=== PATIENT | female | born 1935 | race Caucasian/White ===

== ENCOUNTER 2020-09-06 07:56 | Outpatient (REF) | payer MEDICARE, SELFPAY ==
[2020-09-06 11:49] LABS: Alanine Aminotransferase 22 U/L (0-31); Anion Gap 13 (12-20); Blood Urea Nitrogen 26 mg/dL (9-16); Carbon Dioxide 29 mmol/L (22-29); Chloride 104 mmol/L (96-108); Estimated Glomerular Filt Rate 46; Potassium 4.2 mmol/L (3.3-5.1); Sodium 142 mmol/L (135-145)
== END 2020-09-06 07:57 | disposition home or self-care (01) ==
LOC: HO.HMGCLDS 07:56
PROVIDERS: Visit Provider Family Medicine
DX: I10 Essential (primary) hypertension (principal); E78.00 Pure hypercholesterolemia, unspecified; Z79.899 Other long term (current) drug therapy
CPT/HCPCS: 36415; 80051; 82550; 82565; 84460; 84520

== ENCOUNTER 2021-01-24 09:48 | Outpatient (REF) | payer MEDICARE, SELFPAY ==
[2021-01-24 12:25] LABS: Anion Gap 15 (12-20); Blood Urea Nitrogen 35 mg/dL (9-16); Calcium 9.8 mg/dL (8.4-10.2); Carbon Dioxide 24 mmol/L (22-29); Chloride 107 mmol/L (96-108); Estimated Glomerular Filt Rate 36; Potassium 4.2 mmol/L (3.3-5.1); Sodium 142 mmol/L (135-145)
== END 2021-01-24 09:49 | disposition home or self-care (01) ==
LOC: HO.HMGCLDS 09:48
PROVIDERS: PCP Family Medicine; Visit Provider Internal Medicine Hypertension Specialist
DX: I12.9 Hypertensive chronic kidney disease with stage 1 through stage 4 chronic kidney disease, or unspecified chronic kidney disease (principal); N18.9 Chronic kidney disease, unspecified; I70.1 Atherosclerosis of renal artery
CPT/HCPCS: 36415; 80051; 82310; 82565; 84520

== ENCOUNTER 2021-08-04 09:55 | Outpatient (REF) | payer MEDICARE, SELFPAY | END 2021-08-04 09:56 | disposition home or self-care (01) | LOC: HO.XRAY 09:55 | PROVIDERS: PCP Internal Medicine; Visit Provider Internal Medicine | DX: Z13.89 Encounter for screening for other disorder (principal) ==

== ENCOUNTER 2021-09-04 08:32 | Outpatient (REF) | payer MEDICARE, SELFPAY ==
--- NOTE | ~2021-09-04 | FL_ITS ---
EXAMINATION: FL BARIUM SWALLOW CLINICAL INFORMATION: New dysphagia. COMPARISON: 07/09/2019 TECHNIQUE: Barium swallow examination is performed using fluoroscopic evaluation in addition to multiple fluoroscopic spot views. The patient is imaged both upright and prone and using both thick and thin sulfate along with effervescent granules. Fluoroscopy time: 1.4 minutes DAP: 5.09 Gycm2 Images: 109 FINDINGS: There is normal oral bolus control and transfer. Normal posterior tilt of the epiglottis with elevation of the hyoid. No cricopharyngeal abnormality. 13 mm barium tablet was swallowed, with delay of passage at the level of the midesophagus. This was cleared with additional swallows of water. The esophagus was normal in course, caliber, and contour. There was normal distensibility with no fixed segment of narrowing. No focal mucosal abnormality was identified. Mild esophageal dysmotility was observed. Contrast passed freely across the gastroesophageal junction into the stomach. No significant hiatal hernia. Mild gastroesophageal reflux was observed. FL/FL barium swallow IMPRESSION: Mild esophageal dysmotility. Mild gastroesophageal reflux noted. Mild delay of passage of the barium tablet at the level of the midesophagus likely associated with dysmotility. This was cleared with additional drinks of water.
== END 2021-09-04 08:33 | disposition home or self-care (01) ==
LOC: HO.XRAY 08:32
PROVIDERS: Visit Provider Internal Medicine
DX: R13.10 Dysphagia, unspecified (principal)
CPT/HCPCS: 74220

== ENCOUNTER → 2021-10-09 11:00 | Outpatient (BNVA) | payer MEDICARE, SELFPAY | PROVIDERS: PCP Internal Medicine; Visit Provider Surgery Vascular Surgery | DX: I73.9 Peripheral vascular disease, unspecified (principal); I65.23 Occlusion and stenosis of bilateral carotid arteries | CPT/HCPCS: 99212 ==

== ENCOUNTER 2021-10-11 12:30 | Outpatient (REF) | payer MEDICARE, SELFPAY ==
--- NOTE | ~2021-10-11 | MM_ITS ---
EXAMINATION: MM SCREENING DIGITAL BREAST TOMOSYNTHESIS, BILATERAL CLINICAL INFORMATION: Screening. Asymptomatic. COMPARISON: Mammography: 08/20/2018, 11/02/2016, 08/10/2014, 07/23/2014 TECHNIQUE: Digital breast tomosynthesis is performed in both the craniocaudal and mediolateral oblique views along with computer-aided detection (CAD). Synthesized 2D images are generated from the tomosynthesis. Additional left CC view is provided. FINDINGS: There are scattered areas of fibroglandular density (ACR BI-RADS breast composition Category b). Parenchymal pattern is similar to prior studies. No developing density or significant significant mass or architectural abnormality. 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 There is a dermal lesion again seen overlying the lower inner left breast. The axilla are unremarkable. No significant changes. MM/MM tomosynthesis screening BI IMPRESSION: No mammographic evidence of malignancy. ASSESSMENT: BI-RADS 2: Benign RECOMMENDATION: Routine annual mammography screening. This patient's information was entered into a reminder system with a target due date for their next mammogram.
== END 2021-10-11 12:31 | disposition home or self-care (01) ==
LOC: HO.MAMMO 12:30
PROVIDERS: PCP Internal Medicine; Visit Provider Internal Medicine
DX: Z12.31 Encounter for screening mammogram for malignant neoplasm of breast (principal)
CPT/HCPCS: 77063; 77067

== ENCOUNTER 2021-12-12 13:28 | Outpatient (REF) | payer MEDICARE, SELFPAY ==
--- NOTE | ~2021-12-12 | US_ITS ---
EXAMINATION: NONINVASIVE ASSESSMENT OF THE ARTERIES OF BOTH LOWER EXTREMITIES WITH PVR EXAM AND BILATERAL LOWER EXTREMITY DUPLEX CLINICAL INFORMATION: Peripheral vascular disease. TECHNIQUE: Ankle pulse volume recordings, ankle pressure measurements and ankle brachial indices were obtained of the lower extremity arterial system bilaterally. Additionally, duplex Doppler techniques were used with wave form analysis and measurement of velocities in the common femoral, profunda femoral, superficial femoral, popliteal and tibial arteries. The study was performed only at rest. COMPARISON: None. FINDINGS: ANKLE-BRACHIAL INDEX: Right: 0.36 Left: 0.39. ANKLE PVR WAVEFORM: Right: Dampened Left: Dampened DIRECT DUPLEX DOPPLER FINDINGS: RIGHT LEG: Common femoral artery: 139 cm/s, monophasic Profunda femoris artery: 211 cm/s, monophasic Superficial femoral artery (proximal): 132 cm/s, monophasic Superficial femoral artery (mid): 27 cm/s, monophasic Superficial femoral artery (distal): 126 cm/s, multiphasic Popliteal artery: 38 cm/s, monophasic Posterior tibial artery: 87 cm/s, monophasic LEFT LEG: Common femoral artery: 225 cm/s, monophasic Profunda femoris artery: 339 cm/s, monophasic Superficial femoral artery (proximal): 23 cm/s, monophasic Superficial femoral artery (mid): 87 cm/s, monophasic Superficial femoral artery (distal): 8 cm/s, monophasic Popliteal artery: 14 cm/s, monophasic Posterior tibial artery: 51 cm/s, monophasic Arterial collaterals are present bilaterally. There is significant atherosclerotic disease seen bilaterally. US/US arterial duplex LE BI IMPRESSION: Right leg: DEEDEE 0.36 consistent with severe peripheral arterial disease. Common femoral artery waveforms are monophasic suggesting inflow disease. Monophasic waveforms are present throughout the remainder of the right lower extremity. Left leg: DEEDEE 0.36 consistent with severe peripheral arterial disease. Common femoral artery velocity is elevated and CONTINUITY READER waveform is monophasic suggesting inflow disease. There is minimal, sluggish flow within the superficial femoral artery and popliteal artery. Monophasic waveforms are seen throughout the left lower extremity. DEEDEE Reference: - >0.97-1.25 = normal - no significant arterial disease. - 0.75-0.96 = mild peripheral arterial disease. - 0.5-0.74 = moderate peripheral arterial disease. - <0.50 = severe peripheral arterial disease.
--- NOTE | ~2021-12-12 | US_ITS ---
EXAMINATION: US EXTRACRANIAL CAROTID DUPLEX, BILATERAL CLINICAL INFORMATION: Carotid artery stenosis. History of right carotid endarterectomy. COMPARISON: 06/04/2016 TECHNIQUE: Real-time ultrasound and Doppler techniques (integrating B-mode 2-D vascular images, Doppler spectral analysis and color-flow Doppler imaging) were utilized to interrogate the extracranial carotid arteries, the vertebral arteries and proximal subclavian arteries bilaterally. The degree of stenosis is determined by criteria similar to NASCET. FINDINGS: Right Side: 1. There is no appreciable atherosclerotic plaque seen in the bifurcation/proximal ICA region. 2. The common carotid artery PSV proximally is 97 cm/s and distally 60 cm/s. 3. The proximal internal carotid artery velocities are 64 cm/s systolic and 13 cm/s diastolic. 4. The proximal external carotid artery PSV is 237 cm/s. 5. The vertebral artery shows antegrade flow. 6. The subclavian artery waveforms are normal. Left Side: 1. There is moderate atherosclerotic plaque seen in the bifurcation/proximal ICA region. 2. The common carotid artery PSV proximally is 127 cm/s and distally 72 cm/s. 3. The proximal internal carotid artery velocities are 196 cm/s systolic and 27 cm/s diastolic. 4. The proximal external carotid artery PSV is 361 cm/s. 5. The vertebral artery shows antegrade flow. 6. The subclavian artery velocity suggests stenosis peak systolic velocity of 207 m/s.. US/US carotid duplex BI IMPRESSION: 1. RIGHT: Normal right internal carotid artery without atherosclerotic plaque or hemodynamically significant stenosis. 2. LEFT: Moderate, hemodynamically significant stenosis of the proximal left internal carotid artery corresponding to a 50-79% stenosis by velocity criteria. The degree of stenosis is stable from a comparison in 2017. 3. Elevated velocities within both external carotid arteries suggest hemodynamically significant stenoses bilaterally. 4. Mildly elevated left subclavian artery velocity suggests a hemodynamically significant stenosis.
== END 2021-12-12 13:29 | disposition home or self-care (01) ==
LOC: HO.US 13:28
PROVIDERS: Visit Provider Surgery Vascular Surgery
DX: I73.9 Peripheral vascular disease, unspecified (principal); I65.23 Occlusion and stenosis of bilateral carotid arteries
CPT/HCPCS: 93880; 93925

== ENCOUNTER → 2021-12-19 10:55 | Outpatient (BNVA) | payer MEDICARE, SELFPAY | PROVIDERS: PCP Internal Medicine; Visit Provider Surgery Vascular Surgery | DX: I73.9 Peripheral vascular disease, unspecified (principal); I65.23 Occlusion and stenosis of bilateral carotid arteries | CPT/HCPCS: 99212 ==

== ENCOUNTER 2021-12-25 08:25 | Outpatient (REF) | payer MEDICARE, SELFPAY ==
[2021-12-25 09:46] LABS: Blood Urea Nitrogen 30 mg/dL (9-16); Estimated Glomerular Filt Rate 37
== END 2021-12-25 08:26 | disposition home or self-care (01) ==
LOC: HO.LAB 08:25
PROVIDERS: PCP Internal Medicine; Visit Provider Surgery Vascular Surgery
DX: I73.9 Peripheral vascular disease, unspecified (principal)
CPT/HCPCS: 36415; 82565; 84520

== ENCOUNTER 2021-12-27 09:58 | Outpatient (REF) | payer MEDICARE, SELFPAY ==
--- NOTE | ~2021-12-27 | CT_ITS ---
STUDY PERFORMED: CTA ABDOMEN, PELVIS AND LOWER EXTREMITY RUNOFF WITH CONTRAST HISTORY: Pain in popliteal fossa and calf DESCRIPTION: Routine abdominal aorta and lower extremity runoff CTA protocol with contrast was performed. 100 mL of Omnipaque 350 was administered. 3D POSTPROCESSING: Multiple 3-D angiographic images were processed from the initial data set by the [facility] under concurrent physician supervision. This CT examination was performed using dose optimization techniques as appropriate, variously including the following: *Automated exposure control *Adjustment of mA and/or kV according to patient size (this includes techniques or standardized protocols for targeted exams where dose is matched to indication/reason for exam; i.e. extremities or head) *Use of iterative reconstruction technique DLP: 744 mGy-cm. COMPARISON: None. FINDINGS: VASCULAR: ABDOMINAL AORTA: Calcific atherosclerotic changes without stenosis or aneurysm. RIGHT LOWER EXTREMITY: - Common Iliac Artery: Calcific plaque without stenosis. - Internal Iliac Artery: Mild origin stenosis. - External Iliac Artery: Widely patent. - Common Femoral Artery: Calcific atherosclerotic plaque with some mild narrowing. - Profunda Femoral Artery: Calcific plaque but patent. - Superficial Femoral Artery: Pvziwzuq-to-zizifo disease throughout with luminal diameters approaching 2 mm at some points. - Popliteal Artery: Mijy-bu-yhzmckfr atherosclerotic changes with some mild areas of narrowing. - Tibioperoneal Trunk: Patent. - Posterior Tibial Artery: Mild disease throughout. - Peroneal Artery: Heavily diseased. - Anterior Tibial Artery: Patent to the foot with diseased just prior to the dorsalis pedis. LEFT LOWER EXTREMITY: - Common Iliac Artery: Mild disease. - Internal Iliac Artery: Widely patent. - External Iliac Artery: Widely patent. - Common Femoral Artery: Minimal calcific plaque - widely patent. - Profunda Femoral Artery: Widely patent. - Superficial Femoral Artery: Occluded shortly after its origin with reconstitution at the level of the adductor canal. The SFA has moderate disease. - Popliteal Artery: The wapyz-eyv-tcgl and mupgu-qbh-trhi popliteals have areas of stenosis. - Tibioperoneal Trunk: Diseased but patent. - Posterior Tibial Artery: Heavily diseased, essentially occluded. - Peroneal Artery: Proximal disease but widely patent distally. - Anterior Tibial Artery: Mild disease but widely patent. CELIOMESENTERIC ARTERIES: There are celiac, SMA and EDGAR ostial stenoses. RENAL ARTERIES: There are single renal arteries, both with heavy calcification proximally and mild areas of stenosis. NON-VASCULAR: Lung Bases: The visualized lung bases are unremarkable. Liver, Gallbladder and Biliary Tree: The liver is normal in size, shape, and attenuation. No focal hepatic lesion or biliary ductal dilatation is present. The gallbladder wall appears minimally thickened with increased enhancement. At the gallbladder fundus, a stone might be present. On prior gallbladder ultrasound, sludge was noted. If gallbladder disease is a consideration, recommend ultrasound. Pancreas: Unremarkable. Spleen: Unremarkable. Adrenal Glands: Unremarkable. Kidneys and Ureters: The kidneys are normal in size, shape, and attenuation. No hydronephrosis, hydroureter, or calculi seen. No perinephric stranding. Bladder: Unremarkable. Gastrointestinal Tract: The small and large bowel are unremarkable. The appendix is short and unremarkable. Abdominal Wall: No significant hernia is appreciated. Lymph Nodes: Normal. Pelvic Viscera: Unremarkable. Osseous Structures: Unremarkable. CT/CT angio abd aorta runoff IMPRESSION: VASCULAR: 1. No evidence of hemodynamically significant aortoiliac inflow disease as suspected on the prior arterial duplex 2. On the right, there is significant SFA disease with puqbnbvx-zx-rdqack disease throughout with areas of luminal narrowing approaching 2 mm. There is three-vessel runoff with a heavily diseased peroneal artery and distal ARNAV disease just prior to the dorsalis pedis which is patent. Mild disease in the posterior tibial artery throughout. 3. On the left, there is an SFA occlusion with reconstitution distal SFA and popliteal with two-vessel runoff as the posterior tibial artery is heavily diseased and essentially occluded. Peroneal with proximal disease but widely patent distally. A CT has mild disease but is widely patent and continuous with the dorsalis pedis. 4. Incidental note made of stenoses involving celiac, SMA and EDGAR. NONVASCULAR: 1. Suspect gallbladder disease. If this is of clinical consideration, consider ultrasound.
[2021-12-27] MEDS: iohexoL 350 MG/ML 100 ML INFUS..BTL IV (11:22)
== END 2021-12-27 09:59 | disposition home or self-care (01) ==
LOC: HO.CT 09:58
PROVIDERS: Visit Provider Surgery Vascular Surgery
DX: I73.9 Peripheral vascular disease, unspecified (principal)
CPT/HCPCS: 75635; Q9967

== ENCOUNTER 2021-12-29 08:33 | Outpatient (REF) | payer MEDICARE, SELFPAY ==
[2021-12-29 11:49] LABS: Anion Gap 15 (12-20); Blood Urea Nitrogen 24 mg/dL (9-16); Calcium 9.6 mg/dL (8.4-10.2); Carbon Dioxide 25 mmol/L (22-29); Chloride 105 mmol/L (96-108); Cholesterol 159 mg/dL; Estimated Glomerular Filt Rate 35; Glucose Random 120 mg/dL (60-115); HDL Cholesterol 49 mg/dL; LDL Cholesterol Calculated 72 mg/dl; Potassium 4.4 mmol/L (3.3-5.1); Sodium 141 mmol/L (135-145); Triglycerides 194 mg/dL
== END 2021-12-29 08:34 | disposition home or self-care (01) ==
LOC: HO.HMGCLDS 08:33
PROVIDERS: PCP Internal Medicine; Visit Provider Internal Medicine
DX: E78.00 Pure hypercholesterolemia, unspecified (principal); I10 Essential (primary) hypertension
CPT/HCPCS: 36415; 80048; 80061

== ENCOUNTER → 2022-01-16 10:07 | Outpatient (BNVA) | payer MEDICARE, SELFPAY | PROVIDERS: PCP Internal Medicine; Visit Provider Surgery Vascular Surgery | DX: I73.9 Peripheral vascular disease, unspecified (principal) | CPT/HCPCS: 99212 ==

== ENCOUNTER 2022-01-24 06:13 | Day surgery (SDC) | payer MEDICARE, SELFPAY ==
[2022-01-24] VITALS (7 sets, daily range): BP systolic 134–159; BP diastolic 47–54; PULSE 49–81; RESP 16–18; TEMP 36.2–36.4; O2SAT 95–99; BMI 26.4
[2022-01-24 06:39] LABS: MANUAL DIFF FLAG NO
[2022-01-24 06:43] LABS: Basophils Percent Auto 0.5 % (0-2); Eosinophils Absolute Auto 0.2 X10*3/uL (0.0-0.4); Eosinophils Percent Auto 3.3 % (0-4); Hematocrit 37.4 % (37.0-47.0); Hemoglobin 13.1 g/dl (12.0-16.0); Imm Gran Abs Auto 0.01 X10*3/uL (0.00-0.03); Imm Gran Pct Auto 0.2 % (0.0-0.4); Lymphocytes Absolute Auto 2.4 X10*3/uL (1.2-4.9); Lymphocytes Percent Auto 37.4 % (20-40); Mean Corpuscular Hemoglobin 31.8 pg (27.0-33.0); Mean Corpuscular Volume 90.8 fL (80.0-98.0); Mean Platelet Volume 10.9 fL (9.4-12.3); Monocytes Absolute Auto 0.7 X10*3/uL (0.1-1.2); Monocytes Percent Auto 11.1 % (2-11); Neutrophils Percent Auto 47.5 % (45-73); Platelet Count 140 X10*3/uL (160-400); Red Blood Count 4.12 X10*6/uL (4.20-5.50); Red Cell Distribution Width 12.9 % (11.0-16.0); White Blood Count 6.3 X10*3/uL (4.8-10.8)
[2022-01-24 06:56] LABS: Blood Urea Nitrogen 33 mg/dL (9-16); Estimated Glomerular Filt Rate 40
[2022-01-24] MEDS: 0.9 % Sodium Chloride 1,000 ML 100 ML IVCONT (06:57)
--- NOTE | 2022-01-24 09:34 | P.OP_ITS ---
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 Ultrasound-guided left common femoral access 2. Aortogram with bilateral lower extremity runoff 3. Right SFA atherectomy and plasty Surgeon:Mike Padron M.D., FACS, RPVI Shackler:None Anesthesia: Local with moderate conscious sedation. Total intraservice modera te sedation time was 68 minutes. I monitored the patient's level of consciousness and physiologic status continuously throughout the procedure. Specimens:none Drains:none Estimated blood loss: Less than 10 ml Implant: Medtronic Impact DCB 5 x 200 Indications: 86-year-old female with history of claudication. Noted to have SFA disease on noninvasive testing. Now presents for endovascular intervention. The patient has signed the informed consent after reviewing risks, complications, benefits, and alternatives previously discussed with the patient. The patient was given the opportunity to ask any additional questions or voice any concerns. All questions were answered to the patient's satisfaction. Procedure in detail: Patient was brought to the angiography suite prior to which a time-out was called for patient identification and site verification. Bilateral groins were prepped and draped in the standard surgical fashion. Under ultrasound guidance left common femoral was punctured with micro puncture needle and wire. Subsequently a precision 4 Trinidadian sheath was then placed. Bentson wire was advanced to the level of the aorta. 4 Trinidadian Flush catheter was brought up and parked at the level of the renal arteries. Aortogram was then undertaken. Catheter was brought down to the level of the iliac bifurcation. Iliacs were subsequently imaged. Catheter was then brought in up and over to the right side SFA. Runoff study was then undertaken. It was noted that she had significant SFA disease. We advanced an 035 glidewire Advantage. We then administered 5000 units of systemic heparin. After 5 minutes of circulation time we placed an up and over 6 Trinidadian sheath. We then exchanged out for a 6 Trinidadian spider wire. We noted multiple stenotic lesions throughout the SFA. Unidirectional passes of Hawk 1 atherectomy device was then performed. Multiple passes were performed in the proximal SFA and distal SFA. Once this was all accomplished there was still residual stenosis. We plasty this entire area with regular 5 x 100 balloon with multiple insufflations. Finally we plasty this with a 5 x 200 drug coated balloon. This was brought into position in under 3 minutes and insufflated for a total of 3 minutes in duration. Once this was all accomplished completion angiogram demonstrated excellent result catheter wire sheath was then brought back to the ipsilateral side which was the left side. Through the sheath we did runoff study of the left lower extremity. Once this was all accomplished StarClose closure device was then deployed. Patient tolerated the procedure well returned to recovery with stable vitals. Interpretation of films: 1. Ultrasound demonstrates appropriate femoral puncture. Image of which was saved. 2. Aortogram demonstrates appropriate caliber aorta. Minimal disease. Appropriate take-off of the renals. 3. Iliac images demonstrate no size significant disease 4. Right Leg Common femoral artery: Mild disease at the distal common femoral Profundus Femoris: No significant disease Superficial femoral artery: Multiple stenotic lesions throughout the entire SFA Popliteal artery (p1,p2,p3): Mild disease at the P1 segment Anterior tibial artery: Patent Peroneal artery: Patent but diminutive Posterior tibial artery: Occluded Dorsalis pedis/plantar arch: Incomplete 5. LeftLeg Common femoral artery: No significant disease Profundus Femoris: No significant disease Superficial femoral artery: Occludes from the origin and reconstitutes at the above knee popliteal Popliteal artery (p1,p2,p3): Moderate disease at the P2 segment Anterior tibial artery: Patent Peroneal artery: Patent but diminutive Posterior tibial artery: Occluded Dorsalis pedis/plantar arch: Incomplete Conclusion: 1. Successful right SFA atherectomy and plasty. Left leg total SFA occlusion will need fem-pop bypass 2. Anticoagulation status: Will require minimum of 6 months of aspirin and Plavix This note is constructed using voice recognition software. While every effort has been made to ensure accuracy, explosives mixer operator errors may have been included. Thank you for allowing me to participate in the care of your patient. Yours sincerely, Mike Padron MD, FACS, R.P.V.I.
[2022-01-24] MEDS: Clopidogrel Bisulfate 300 MG TABLET PO (10:59)
== END 2022-01-24 11:43 | disposition home or self-care (01) ==
PROVIDERS: PCP Internal Medicine; Visit Provider Surgery Vascular Surgery
DX: I70.211 Atherosclerosis of native arteries of extremities with intermittent claudication, right leg (principal); G62.9 Polyneuropathy, unspecified; R26.2 Difficulty in walking, not elsewhere classified; R25.2 Cramp and spasm; I25.10 Atherosclerotic heart disease of native coronary artery without angina pectoris; Z95.1 Presence of aortocoronary bypass graft; I10 Essential (primary) hypertension; E78.00 Pure hypercholesterolemia, unspecified; R35.1 Nocturia; Z79.899 Other long term (current) drug therapy; Z88.8 Allergy status to other drugs, medicaments and biological substances; Z98.62 Peripheral vascular angioplasty status; Z86.73 Personal history of transient ischemic attack (TIA), and cerebral infarction without residual deficits
CPT/HCPCS: 36415; 37225; 76937; 82565; 84520; 85025; 99152; 99153; C1714; C1725; C1769; C1884; C1887; C2623; J2250; J3010; Q9967

== ENCOUNTER → 2022-02-06 09:32 | Outpatient (BNVA) | payer MEDICARE, SELFPAY | PROVIDERS: PCP Internal Medicine; Visit Provider Surgery Vascular Surgery | DX: I73.9 Peripheral vascular disease, unspecified (principal) | CPT/HCPCS: 99212 ==

== ENCOUNTER 2022-04-29 14:32 | Emergency (ER) | payer MEDICARE, SELFPAY ==
--- NOTE | ~2022-04-29 | CT_ITS ---
EXAMINATION: CTA CHEST WITHOUT AND WITH CONTRAST (PE STUDY) CLINICAL INFORMATION: Shortness of breath. Elevated d-dimer. Nausea, anorexia COMPARISON: Portions of a CT abdomen pelvis 12/27/21 TECHNIQUE: CT angiography of the chest. Multidetector CT helical examination of the chest during the rapid IV administration 75 mL of intravenous Omnipaque 350. Multidetector CT of the abdomen and pelvis following IV contrast. Extensive postprocessing was performed including reformatting and multiplanar reconstructions with maximum intensity projections. Pulmonary embolus technique. This CT examination was performed using dose optimization techniques as appropriate, variously including the following: *Automated exposure control *Adjustment of mA and/or kV according to patient size (this includes techniques or standardized protocols for targeted exams where dose is matched to indication/reason for exam; i.e. extremities or head) *Use of iterative reconstruction technique DLP: 807 mGy-cm. FINDINGS: The bolus is adequate for assessment of the central pulmonary arteries. There is no pulmonary embolus demonstrated. The main pulmonary artery is normal caliber. The timing of contrast enhancement is suboptimal for assessing the aorta. There has been previous coronary artery bypass grafting. There is no thoracic aortic aneurysm. There is extensive plaque at the great vessels. The heart is not significantly enlarged. There is no pericardial fluid. There are no enlarged mediastinal lymph nodes. No suspicious abnormality of the aorta. There is no abnormality of the trachea or mainstem bronchi. There is no pulmonary edema. There is motion artifact limiting lung detail. There are bilateral opacities at least most of which is due to atelectasis. No significant pleural fluid or pneumothorax. There are no enlarged axillary lymph nodes. Previous sternotomy. No suspicious focal bony lesion demonstrated in the chest.. ABDOMEN/PELVIS: Liver, Gallbladder, And Biliary Tree: No suspicious focal liver lesion. There is no definite opaque gallstone. No pericholecystic fluid. Pancreas: No suspicious mass. No localized peripancreatic fluid. Spleen: Within normal limits Adrenal Glands: Normal Kidneys And Ureters: There is no dilation of the urinary collecting system on either side. There are some areas of cortical thinning. There are some calcifications which could be nonobstructing small calculi or vascular calcifications. There is no suspicious renal mass. The nephrograms are symmetric Gastrointestinal Tract: No localized colonic wall thickening or pericolonic fat stranding. No significant small bowel dilation. The stomach is not well distended. No CT evidence of acute appendicitis. Abdominal Wall: No significant hernia is appreciated. Lymphovascular Structures And Fluid: There is marked calcified atherosclerotic plaque including the aorta and the visceral branches. Bladder: No focal abnormality. Pelvic Viscera: No suspicious abnormality. The uterus is retroverted Musculoskeletal: No acute or suspicious osseous abnormality. CT/CT angio chest PE protocol IMPRESSION: No pulmonary embolus demonstrated. No pneumonia or edema. There is some atelectasis. Extensive atherosclerosis with calcified plaque throughout the aorta and its visceral branches. There may be a small nonobstructing left renal calculus. No significant intraperitoneal fluid. No evidence of bowel obstruction VTE: negative
--- NOTE | ~2022-04-29 | XR_ITS ---
EXAMINATION: XR CHEST CLINICAL INFORMATION: Shortness of breath. COMPARISON: 11/02/2014 chest radiographs. TECHNIQUE: Frontal view of the chest was obtained. FINDINGS: No significant abnormality is noted involving the heart, lungs, mediastinum, bony thorax or soft tissues. Multilevel sternotomy wires are intact. XR/XR chest 1V IMPRESSION: No acute cardiopulmonary process.
[2022-04-29 14:42] VITALS: BP 141/66; BP 164/84; PULSE 74; PULSE 83; RESP 20; TEMP 37.2; O2SAT 97; BMI 29.3
[2022-04-29 14:46] VITALS: BP 141/66; PULSE 82; RESP 18; TEMP 37.2; O2SAT 97
--- NOTE | 2022-04-29 14:57 | ECG_ITS ---
Test Reason : SOB Blood Pressure : / mmHG Vent. 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
--- NOTE | 2022-04-29 15:35 | PC.NURSE ---
Pt alert and oriented, respirations even and unlabored. Coming from home where she states she lives with her son. Pt reports poor PO intake over past few days, requesting crackers. EMS inserted IV, labs and swab to be obtained.
[2022-04-29 15:36] LABS: MANUAL DIFF FLAG NO
[2022-04-29 15:37] LABS: Basophils Percent Auto 0.1 % (0-2); Eosinophils Absolute Auto 0.8 X10*3/uL (0.0-0.4); Eosinophils Percent Auto 7.9 % (0-4); Hematocrit 38.9 % (37.0-47.0); Hemoglobin 13.1 g/dl (12.0-16.0); Imm Gran Abs Auto 0.04 X10*3/uL (0.00-0.03); Imm Gran Pct Auto 0.4 % (0.0-0.4); Lymphocytes Absolute Auto 0.9 X10*3/uL (1.2-4.9); Lymphocytes Percent Auto 9.1 % (20-40); Mean Corpuscular HGB Conc 33.7 g/dl (31.0-35.0); Mean Corpuscular Hemoglobin 30.3 pg (27.0-33.0); Mean Platelet Volume 9.9 fL (9.4-12.3); Monocytes Percent Auto 9.9 % (2-11); Neutrophils Percent Auto 72.6 % (45-73); Platelet Count 161 X10*3/uL (160-400); Red Blood Count 4.32 X10*6/uL (4.20-5.50); Red Cell Distribution Width 12.7 % (11.0-16.0); White Blood Count 9.7 X10*3/uL (4.8-10.8)
[2022-04-29 15:46] LABS: D Dimer High Sensitivity 660 NG/ML
[2022-04-29 15:48] VITALS: BP 129/52; PULSE 74; RESP 19; TEMP 37.1; O2SAT 93
--- NOTE | 2022-04-29 15:49 | ED.GENADULT ---
HPI - General Adult General Chief complaint: Dyspnea <Sofie Black NP - Last Filed: 04/29/22 18:14> Stated complaint: SOB <Sofie Black NP - Last Filed: 04/29/22 18:14> Time Seen by Provider: 04/29/22 14:37 <Sofie Black NP - Last Filed: 04/29/22 18:14> History of Present Illness HPI narrative: 86-year-old female patient with a past medical history of CAD s/p CABG, CVA, HTN, right CEA, and BLE claudication with stents placed in RLE presents to the emergency department via EMS for complaints of mild dyspnea with productive cough, difficulty with ambulation, urinary frequency, and weakness. She reports her symptoms began a few days ago, however; she noticed a decline in her ability to move and general energy level over the last couple months. She states she has had difficulty eating due to intermittent nausea. She denies any known fever or chills but reports waking the other night with sweats, soaking her bed. She denies any known recent illness, sick contacts, chest pain, epigastric pain, pain on inspiration, diarrhea, constipation, blood in her stool, or vomiting. <Sofie Black NP - Last Filed: 04/29/22 18:14> Onset (ago): day(s) <Sofie Black NP - Last Filed: 04/29/22 18:14> Associated symptoms: denies other symptoms <Sofie Black NP - Last Filed: 04/29/22 18:14> Related Data Home medications: Home Medications Medication Instructions Recorded Confirmed amlodipine 10 mg tablet mg PO 10/09/21 atorvastatin 10 mg tablet mg PO 10/09/21 isosorbide mononitrate 60 mg mg PO 10/09/21 tablet,extended release 24 hr losartan 50 mg tablet mg PO 10/09/21 metoprolol tartrate 50 mg tablet mg PO 10/09/21 omeprazole 40 mg capsule,delayed mg PO 10/09/21 release aspirin 81 mg tablet,delayed 81 mg PO DAILY 12/19/21 release Previous Rx's Medication Instructions Recorded clopidogrel 75 mg tablet (Plavix) 75 mg PO DAILY #90 tabs 01/24/22 ondansetron 4 mg disintegrating 4 mg PO Q8H nausea 5 days #15 tabs 04/29/22 tablet <Sofie Black NP - Last Filed: 04/29/22 18:14> Allergies/adverse reactions: Allergies Allergy/AdvReac Type Severity Reaction Status Date / Time [id number] Reductase AdvReac Unknown LEG PAIN Verified 02/06/22 09:41 Inhibitor [[id number] REDUCTASE INHIBITOR] <Sofie Blakc NP - Last Filed: 04/29/22 18:14> Review of Systems Review of Systems: Yes all other systems are reviewed and are negative <Sofie Black NP - Last Filed: 04/29/22 18:14> Constitutional: Constitutional: Reports no additional constitutional complaints, Reports body ache(s), Denies chills, Reports fatigue, Denies fever(s), Reports lethargy, Reports night sweats, Reports poor appetite, Reports weakness and Denies weight loss <Sofie Black NP - Last Filed: 04/29/22 18:14> Eyes: Eyes: Reports no additional eye complaints and Denies change in vision <Sofie Black [employer] - Last Filed: 04/29/22 18:14> ENT: Reports system reviewed and no additional complaints, except as documented, Reports Normal hearing present, Denies dizziness, Denies nasal congestion, Denies sinus pain, Denies sinus pressure and Denies sore throat <Sofie Black NP - Last Filed: 04/29/22 18:14> Cardiovascular: Cardiovascular: Reports no additional cardiovascular complaints, Denies chest pain, Denies Epigastric Pain, Denies leg edema, Denies lightheadedness and Reports dyspnea <Sofie Black NP - Last Filed: 04/29/22 18:14> Respiratory: Respiratory: Reports no additional respiratory complaints, Denies chest congestion, Reports cough, Denies pain on inspiration and Reports dyspnea <Sofie Black NP - Last Filed: 04/29/22 18:14> Gastrointestinal: Gastrointestinal: Reports no additional gastrointestinal complaints, Denies melena, Denies hematochezia, Denies constipation, Denies diarrhea, Reports nausea and Denies vomiting <Sofie Black NP - Last Filed: 04/29/22 18:14> Genitourinary: Genitourinary: Reports no additional female genitourinary complaints, Reports urinary incontinence and Reports urinary urgency <Sofie Black NP - Last Filed: 04/29/22 18:14> Musculoskeletal: Musculoskeletal: Reports no additional musculoskeletal complaints, Reports myalgias, Denies numbness and Denies tingling <Sofie Black NP - Last Filed: 04/29/22 18:14> Integumentary/Breasts: Skin/Breast: Reports system reviewed and no additional complaints, except as docu, Denies lesions, Denies rash and Denies sores <Sofie Black NP - Last Filed: 04/29/22 18:14> Neurologic: Reports system reviewed and no additional complaints, except as documented, Reports Normal hearing present, Denies behavioral changes, Denies dizziness, Denies memory loss, Denies numbness, Denies tingling and Reports weakness <Sofie Black NP - Last Filed: 04/29/22 18:14> Psychiatric: Psychiatric: Reports no additional psychiatric complaints, Denies behavioral changes and Denies memory loss <Sofie Black NP - Last Filed: 04/29/22 18:14> Endocrine: Endocrine: Reports no additional endocrine complaints, Reports fatigue, Denies polyphagia, Denies polydipsia and Reports polyuria <Sofie Black NP - Last Filed: 04/29/22 18:14> Hematologic/Lymphatic: Hematologic/Lymphatic: Reports no additional hematologic/lymphatic complaints, Denies easy bleeding and Denies easy bruising <Sofie Black NP - Last Filed: 04/29/22 18:14> PMFSH Past Medical History Attestation statement: The following information was validated with the patient. <Sofie Black NP - Last Filed: 04/29/22 18:14> Source: old records reviewed and obtained from family <Sofie Black NP - Last Filed: 04/29/22 18:14> Medical History: Medical History CAD (coronary artery disease) Change in mole Claudication of left lower extremity CVA (cerebral vascular accident) Dry eye High cholesterol HTN (hypertension) Leg cramps Nocturia Peripheral neuropathy Post-nasal drip <Sofie Black NP - Last Filed: 04/29/22 18:14> Surgical History: Surgical History History of CEA (carotid endarterectomy) Hx of CABG <Sofie Black NP - Last Filed: 04/29/22 18:14> Family History Family History: Family History Father No problems noted. Mother No problems noted. <Sofie Black NP - Last Filed: 04/29/22 18:14> Social History Social History: Social History Patient Tobacco Use Status: Never used Tobacco Advance Directives: Yes Advance Directives Information Provided: No Advance Directives on File: No <Sofie Black NP - Last Filed: 04/29/22 18:14> Physical Exam ED Vital Signs: Vital Signs - 24 hr 04/29/22 14:42 04/29/22 14:46 04/29/22 15:48 Temperature 98.9 F 98.9 F 98.8 F Pulse Rate 83 82 74 Respiratory Rate 20 18 19 Blood Pressure 141/66 H 141/66 H 129/52 L Pulse Oximetry 97 97 93 Oxygen Delivery Method Room Air Room Air Room Air 04/29/22 17:14 04/29/22 18:34 Temperature 98.9 F 98.2 F Pulse Rate 73 72 Respiratory Rate 21 H 12 Blood Pressure 115/48 L 139/49 L Pulse Oximetry 91 L 92 Oxygen Delivery Method Room Air Room Air BMI result Body Mass Index 29.3 <Sofie Black NP - Last Filed: 04/29/22 18:14> Vital Signs - 24 hr 04/29/22 14:42 04/29/22 14:46 04/29/22 15:48 Temperature 98.9 F 98.9 F 98.8 F Pulse Rate 83 82 74 Respiratory Rate 20 18 19 Blood Pressure 141/66 H 141/66 H 129/52 L Pulse Oximetry 97 97 93 Oxygen Delivery Method Room Air Room Air Room Air 04/29/22 17:14 04/29/22 18:34 Temperature 98.9 F 98.2 F Pulse Rate 73 72 Respiratory Rate 21 H 12 Blood Pressure 115/48 L 139/49 L Pulse Oximetry 91 L 92 Oxygen Delivery Method Room Air Room Air BMI result Body Mass Index 29.3 <Suyapa Frances NP - Last Filed: 04/29/22 20:38> Const General: cooperative, alert, awake and well groomed; No no acute distress <Sofie Black NP - Last Filed: 04/29/22 18:14> Nutritional Appearance: average body habitus <Sofie Black NP - Last Filed: 04/29/22 18:14> Orientation/consciousness: patient oriented x3 <Sofie Black NP - Last Filed: 04/29/22 18:14> Limitations: physical limitations <Sofie Black NP - Last Filed: 04/29/22 18:14> [facility] Head: Yes normal to inspection, Yes normocephalic and Yes atraumatic <Sofie Black [employer] - Last Filed: 04/29/22 18:14> Ears: hearing grossly normal bilaterally and external ears normal <Sofie Black NP - Last Filed: 04/29/22 18:14> General nose exam: Normal external nose present <Sofie Black NP - Last Filed: 04/29/22 18:14> Face and sinus: Yes normal facial exam and Yes face symmetric <Sofie Black [employer] - Last Filed: 04/29/22 18:14> Mouth: Normal oral and palatal mucosa present <Sofie Black NP - Last Filed: 04/29/22 18:14> Eyes General: appearance normal, both eyes and all related structures <Sofie Black NP - Last Filed: 04/29/22 18:14> Alignment and Position: alignment normal <Sofie Black NP - Last Filed: 04/29/22 18:14> Periorbital: periorbital findings normal <Sofie Black, [employer] - Last Filed: 04/29/22 18:14> Eyelids: Yes eyelids normal <Sofie Carissaseda, [employer] - Last Filed: 04/29/22 18:14> Conjunctivae: conjunctivae normal <Sofie Carissaseda, [employer] - Last Filed: 04/29/22 18:14> Sclerae: sclerae normal <Sofie Alkajoey, [employer] - Last Filed: 04/29/22 18:14> Pupils: Equal, round and reactive pupils present <Sofie Alkajoey, [employer] - Last Filed: 04/29/22 18:14> EOM: EOMs intact bilaterally <Sofiebrenna Black, [employer] - Last Filed: 04/29/22 18:14> Neck Neck: Yes normal visual inspection and Yes full ROM <Sofie Sofia, [employer] - Last Filed: 04/29/22 18:14> Chest Chest palpation & inspection: normal inspection of the chest <Sofiebrenna Black, [employer] - Last Filed: 04/29/22 18:14> Resp Effort & Inspection: normal respiratory effort and able to speak in complete sentences <Sofie Plucdarlenewilliams, [employer] - Last Filed: 04/29/22 18:14> Auscultation: clear to auscultation bilaterally <Sofie Plucjoey, [employer] - Last Filed: 04/29/22 18:14> Cardio Rate: regular rate <Sofiebrenna Black, [employer] - Last Filed: 04/29/22 18:14> Rhythm: regular rhythm <Sofiebrenna Black, [employer] - Last Filed: 04/29/22 18:14> GI Inspection: Yes normal to inspection <Sofie Sofia, [employer] - Last Filed: 04/29/22 18:14> Palpation (GI): Soft to palpation and nontender <Sofiebrenna Black, [employer] - Last Filed: 04/29/22 18:14> Auscultation: normal bowel sounds <Sofiebrenna Black, [employer] - Last Filed: 04/29/22 18:14> General: Yes no CVA tenderness <Sofiebrenna Black, [employer] - Last Filed: 04/29/22 18:14> Back/Spine/Pelvis Back: no CVA tenderness <Sofie Plucdarlenewilliams, [employer] - Last Filed: 04/29/22 18:14> Cervical Spine: cervical ROM normal <Sofie Alkajoey, [employer] - Last Filed: 04/29/22 18:14> Thoracic/Lumbar Spine: thoraco-lumbar ROM normal <Sofiebrenna Black, [employer] - Last Filed: 04/29/22 18:14> Skin General skin exam: no rashes or lesions noted <Sofie Carissaseda, [employer] - Last Filed: 04/29/22 18:14> Neuro General: patient oriented x3, moves all extremities and Unable to assess gait <Sofiebrenna Black, [employer] - Last Filed: 04/29/22 18:14> Cranial nerves: Yes Equal, round and reactive pupils present, Yes Bilaterally intact EOM present, Yes Midline tongue present, Yes Normal hearing present, Yes Ability to bilaterally rotate head present and Yes Ability to bilaterally elevate shoulders present <Sofie Plucdarlenewilliams, [employer] - Last Filed: 04/29/22 18:14> Cognition (Neuro): normal cognition <Sofie Plucdarlenewilliams, [employer] - Last Filed: 04/29/22 18:14> Gait exam (Neuro): Unable to assess gait <Sofie Plucdarlenewilliams, [employer] - Last Filed: 04/29/22 18:14> Motor exam (neuro): Normal motor muscle tone present throughout <Sofiebrenna Black [employer] - Last Filed: 04/29/22 18:14> Extrem General: Yes normal to inspection, Yes full ROM and Yes capillary refill normal <Sofiebrenna Black, [employer] - Last Filed: 04/29/22 18:14> Psych Appearance: grossly normal <Sofiebrenna Black [employer] - Last Filed: 04/29/22 18:14> Mental Status: mental status grossly normal <Sofiebrenna Black, [employer] - Last Filed: 04/29/22 18:14> Speech and movement: Normal speech and movement present <Sofie Black [employer] - Last Filed: 04/29/22 18:14> Affect: normal affect <Sofiebrenna Black NP - Last Filed: 04/29/22 18:14> Attitude: cooperative <Sofie Black NP - Last Filed: 04/29/22 18:14> Thought process: Normal thought process present <Sofie Black NP - Last Filed: 04/29/22 18:14> Thought content: Normal thought content present <Sofie Black NP - Last Filed: 04/29/22 18:14> Insight: Good insight present (Psych) <Sofie Black NP - Last Filed: 04/29/22 18:14> Judgement: Good judgement present (Psych) <Sofie Black NP - Last Filed: 04/29/22 18:14> Course Course Course Narrative: 1520: EKG NSR. CXR showing no acute cardiopulmonary process at this time. 1600: Blood work reviewed and essentially unremarkable. BUN elevated at 23 mg/dL D-dimer elevated (660 ng/mL). CTA chest ordered to rule out PE. CT abdomen/pelvis ordered to rule out GI pathology as reason for nausea and decreased appetite. 1800: Signed out to Suyapa Ragsdale without unanswered questions <Sofie Black NP - Last Filed: 04/29/22 18:14> 1520: EKG NSR. CXR showing no acute cardiopulmonary process at this time. 1600: Blood work reviewed and essentially unremarkable. BUN elevated at 23 mg/dL D-dimer elevated (660 ng/mL). CTA chest ordered to rule out PE. CT abdomen/pelvis ordered to rule out GI pathology as reason for nausea and decreased appetite. 1800: Signed out to Suyapa Ragsdale without unanswered questions 20:37 CT PE study abdomen and pelvis are negative for acute findings. Plan of care discharge home with prior providers discharge instructions. Patient and family verbalized understanding of and agrees to care for discharge home. Both verbalized understanding of signs and symptoms indicating need for emergent intervention. <Suyapa Frances NP - Last Filed: 04/29/22 20:38> Medications Administered Discontinued Medications Generic Name Dose Route Start Last Admin Trade Name Freq PRN Reason Stop Dose Admin Sodium Chloride 1,000 mls @ 999 mls/hr 04/29/22 18:15 04/29/22 18:46 Ns IVCONT 04/29/22 19:15 999 mls/hr .Q1H1M LLUVIA Administration Iohexol 100 ml 04/29/22 18:33 04/29/22 18:34 Iohexol 350 Mg/Ml 100 Ml Infus..Btl IV 04/29/22 18:34 75 ml ONCE ONE Administration <Sofie Black NP - Last Filed: 04/29/22 18:14> Medications Administered Discontinued Medications Generic Name Dose Route Start Last Admin Trade Name Rubén PRN Reason Stop Dose Admin Sodium Chloride 1,000 mls @ 999 mls/hr 04/29/22 18:15 04/29/22 18:46 Ns IVCONT 04/29/22 19:15 999 mls/hr .Q1H1M LLUVIA Administration Iohexol 100 ml 04/29/22 18:33 04/29/22 18:34 Iohexol 350 Mg/Ml 100 Ml Infus..Btl IV 04/29/22 18:34 75 ml ONCE ONE Administration <Suyapa Frances NP - Last Filed: 04/29/22 20:38> Medical Decision Making MDM Narrative Medical decision making narrative: 86-year-old female presenting to the emergency department for mild dyspnea with productive cough, difficulty with ambulation, urinary frequency, and weakness with symptoms worsening over the last couple of days. EKG normal sinus rhythm with old inferior and anterior infarcts when compared to last EKG. Chest x-ray negative for acute cardiopulmonary process. Blood work shows elevated BUN (23) and D-dimer (660). Serology negative for flu A, B, RSV, and COVID. Pending CTA chest and CT abdomen/pelvis to rule out PE or abdominal pathology as cause of nausea and poor appetite. Educated to return to the emergency department with fever, chills, increased shortness of breath, chest pain, epigastric pain, abdominal pain, diarrhea, vomiting, or any other concerns that you may have. Recommended to follow-up with your primary care provider for further management. <Sofie Black NP - Last Filed: 04/29/22 18:14> Medical Records Medical records reviewed: Yes I reviewed the patient's medical records. <Sofie Black NP - Last Filed: 04/29/22 18:14> Lab Data Lab results reviewed: Yes I reviewed the patient's lab results. <Sofie Black NP - Last Filed: 04/29/22 18:14> Result diagrams: : 04/29/22 15:30 04/29/22 15:30 <Sofie Black NP - Last Filed: 04/29/22 18:14> Labs: Lab Results 04/29/22 04/29/22 04/29/22 Range/Units 15:30 15:30 15:30 WBC 9.7 (4.8-10.8) X10*3/uL RBC 4.32 (4.20-5.50) X10*6/uL Hgb 13.1 (12.0-16.0) g/dl Hct 38.9 (37.0-47.0) % MCV 90.0 (80.0-98.0) fL MCH 30.3 (27.0-33.0) pg MCHC 33.7 (31.0-35.0) g/dl RDW 12.7 (11.0-16.0) % Plt Count 161 (160-400) X10*3/uL MPV 9.9 (9.4-12.3) fL Immature Gran % (Auto) 0.4 (0.0-0.4) % Neut % (Auto) 72.6 (45-73) % Lymph % (Auto) 9.1 L (20-40) % Butts % (Auto) 9.9 (2-11) % Eos % (Auto) 7.9 H (0-4) % Baso % (Auto) 0.1 (0-2) % Lymph # (Auto) 0.9 L (1.2-4.9) X10*3/uL Butts # (Auto) 1.0 (0.1-1.2) X10*3/uL Eos # (Auto) 0.8 H (0.0-0.4) X10*3/uL Baso # (Auto) 0.0 (0.0-0.2) X10*3/uL Abs Immat Gran (auto) 0.04 H (0.00-0.03) X10*3/uL Absolute Neuts (auto) 7.0 (2.0-8.3) x10*3/uL Absolute Nucleated RBC 0.000 (0.0-0.012) X10*3/uL Nucleated RBC % (auto) 0.0 (0.0-0.2) /100WBC D-Dimer High Sensitivty 660 NG/ML Sodium 131 L (135-145) mmol/L Potassium 4.9 (3.3-5.1) mmol/L Chloride 97 (96-108) mmol/L Carbon Dioxide 25 (22-29) mmol/L Anion Gap 14 (12-20) BUN 23 H (9-16) mg/dL Creatinine 1.11 (0.5-1.4) mg/dL Estim Creat Clear Calc 36.0 Estimated GFR 47 Random Glucose 100 (60-115) mg/dL Calcium 9.1 (8.4-10.2) mg/dL Total Bilirubin 1.0 (0.0-1.0) mg/dL AST 14 (5-31) U/L ALT 18 (0-31) U/L Alkaline Phosphatase 52 (39-117) U/L Total Creatine Kinase 25 L (26-140) U/L Troponin I High Sens (<3.5-17.0) ng/L Total Protein 6.2 L (6.5-8.0) g/dL Albumin 3.6 (3.5-5.0) g/dL TSH 1.34 (0.32-4.0) uIU/mL Influenza Type A (PCR) (Negative) Influenza Type B (PCR) (Negative) RSV RNA Qual (PCR) (Negative) SARS-CoV-2 RNA (RT-PCR) (Negative) 04/29/22 04/29/22 Range/Units 15:30 15:30 WBC (4.8-10.8) X10*3/uL RBC (4.20-5.50) X10*6/uL Hgb (12.0-16.0) g/dl Hct (37.0-47.0) % MCV (80.0-98.0) fL MCH (27.0-33.0) pg MCHC (31.0-35.0) g/dl RDW (11.0-16.0) % Plt Count (160-400) X10*3/uL MPV (9.4-12.3) fL Immature Gran % (Auto) (0.0-0.4) % Neut % (Auto) (45-73) % Lymph % (Auto) (20-40) % Butts % (Auto) (2-11) % Eos % (Auto) (0-4) % Baso % (Auto) (0-2) % Lymph # (Auto) (1.2-4.9) X10*3/uL Butts # (Auto) (0.1-1.2) X10*3/uL Eos # (Auto) (0.0-0.4) X10*3/uL Baso # (Auto) (0.0-0.2) X10*3/uL Abs Immat Gran (auto) (0.00-0.03) X10*3/uL Absolute Neuts (auto) (2.0-8.3) x10*3/uL Absolute Nucleated RBC (0.0-0.012) X10*3/uL Nucleated RBC % (auto) (0.0-0.2) /100WBC D-Dimer High Sensitivty NG/ML Sodium (135-145) mmol/L Potassium (3.3-5.1) mmol/L Chloride (96-108) mmol/L Carbon Dioxide (22-29) mmol/L Anion Gap (12-20) BUN (9-16) mg/dL Creatinine (0.5-1.4) mg/dL Estim Creat Clear Calc Estimated GFR Random Glucose (60-115) mg/dL Calcium (8.4-10.2) mg/dL Total Bilirubin (0.0-1.0) mg/dL AST (5-31) U/L ALT (0-31) U/L Alkaline Phosphatase (39-117) U/L Total Creatine Kinase (26-140) U/L Troponin I High Sens 11.0 (<3.5-17.0) ng/L Total Protein (6.5-8.0) g/dL Albumin (3.5-5.0) g/dL TSH (0.32-4.0) uIU/mL Influenza Type A (PCR) NEGATIVE (Negative) Influenza Type B (PCR) NEGATIVE (Negative) RSV RNA Qual (PCR) NEGATIVE (Negative) SARS-CoV-2 RNA (RT-PCR) NEGATIVE (Negative) <Sofie Black, [employer] - Last Filed: 04/29/22 18:14> Lab Results 04/29/22 04/29/22 04/29/22 Range/Units 15:30 15:30 15:30 WBC 9.7 (4.8-10.8) X10*3/uL RBC 4.32 (4.20-5.50) X10*6/uL Hgb 13.1 (12.0-16.0) g/dl Hct 38.9 (37.0-47.0) % MCV 90.0 (80.0-98.0) fL MCH 30.3 (27.0-33.0) pg MCHC 33.7 (31.0-35.0) g/dl RDW 12.7 (11.0-16.0) % Plt Count 161 (160-400) X10*3/uL MPV 9.9 (9.4-12.3) fL Immature Gran % (Auto) 0.4 (0.0-0.4) % Neut % (Auto) 72.6 (45-73) % Lymph % (Auto) 9.1 L (20-40) % Butts % (Auto) 9.9 (2-11) % Eos % (Auto) 7.9 H (0-4) % Baso % (Auto) 0.1 (0-2) % Lymph # (Auto) 0.9 L (1.2-4.9) X10*3/uL Butts # (Auto) 1.0 (0.1-1.2) X10*3/uL Eos # (Auto) 0.8 H (0.0-0.4) X10*3/uL Baso # (Auto) 0.0 (0.0-0.2) X10*3/uL Abs Immat Gran (auto) 0.04 H (0.00-0.03) X10*3/uL Absolute Neuts (auto) 7.0 (2.0-8.3) x10*3/uL Absolute Nucleated RBC 0.000 (0.0-0.012) X10*3/uL Nucleated RBC % (auto) 0.0 (0.0-0.2) /100WBC D-Dimer High Sensitivty 660 NG/ML Sodium 131 L (135-145) mmol/L Potassium 4.9 (3.3-5.1) mmol/L Chloride 97 (96-108) mmol/L Carbon Dioxide 25 (22-29) mmol/L Anion Gap 14 (12-20) BUN 23 H (9-16) mg/dL Creatinine 1.11 (0.5-1.4) mg/dL Estim Creat Clear Calc 36.0 Estimated GFR 47 Random Glucose 100 (60-115) mg/dL Calcium 9.1 (8.4-10.2) mg/dL Total Bilirubin 1.0 (0.0-1.0) mg/dL AST 14 (5-31) U/L ALT 18 (0-31) U/L Alkaline Phosphatase 52 (39-117) U/L Total Creatine Kinase 25 L (26-140) U/L Troponin I High Sens (<3.5-17.0) ng/L Total Protein 6.2 L (6.5-8.0) g/dL Albumin 3.6 (3.5-5.0) g/dL TSH 1.34 (0.32-4.0) uIU/mL Influenza Type A (PCR) (Negative) Influenza Type B (PCR) (Negative) RSV RNA Qual (PCR) (Negative) SARS-CoV-2 RNA (RT-PCR) (Negative) 04/29/22 04/29/22 Range/Units 15:30 15:30 WBC (4.8-10.8) X10*3/uL RBC (4.20-5.50) X10*6/uL Hgb (12.0-16.0) g/dl Hct (37.0-47.0) % MCV (80.0-98.0) fL MCH (27.0-33.0) pg MCHC (31.0-35.0) g/dl RDW (11.0-16.0) % Plt Count (160-400) X10*3/uL MPV (9.4-12.3) fL Immature Gran % (Auto) (0.0-0.4) % Neut % (Auto) (45-73) % Lymph % (Auto) (20-40) % Butts % (Auto) (2-11) % Eos % (Auto) (0-4) % Baso % (Auto) (0-2) % Lymph # (Auto) (1.2-4.9) X10*3/uL Butts # (Auto) (0.1-1.2) X10*3/uL Eos # (Auto) (0.0-0.4) X10*3/uL Baso # (Auto) (0.0-0.2) X10*3/uL Abs Immat Gran (auto) (0.00-0.03) X10*3/uL Absolute Neuts (auto) (2.0-8.3) x10*3/uL Absolute Nucleated RBC (0.0-0.012) X10*3/uL Nucleated RBC % (auto) (0.0-0.2) /100WBC D-Dimer High Sensitivty NG/ML Sodium (135-145) mmol/L Potassium (3.3-5.1) mmol/L Chloride (96-108) mmol/L Carbon Dioxide (22-29) mmol/L Anion Gap (12-20) BUN (9-16) mg/dL Creatinine (0.5-1.4) mg/dL Estim Creat Clear Calc Estimated GFR Random Glucose (60-115) mg/dL Calcium (8.4-10.2) mg/dL Total Bilirubin (0.0-1.0) mg/dL AST (5-31) U/L ALT (0-31) U/L Alkaline Phosphatase (39-117) U/L Total Creatine Kinase (26-140) U/L Troponin I High Sens 11.0 (<3.5-17.0) ng/L Total Protein (6.5-8.0) g/dL Albumin (3.5-5.0) g/dL TSH (0.32-4.0) uIU/mL Influenza Type A (PCR) NEGATIVE (Negative) Influenza Type B (PCR) NEGATIVE (Negative) RSV RNA Qual (PCR) NEGATIVE (Negative) SARS-CoV-2 RNA (RT-PCR) NEGATIVE (Negative) <Suyapa Frances NP - Last Filed: 04/29/22 20:38> Imaging Data Chest x-ray: My impression: No acute cardiopulmonary processes <Sofie Black NP - Last Filed: 04/29/22 18:14> Radiologist's impression: EXAMINATION: XR CHEST CLINICAL INFORMATION: Shortness of breath. COMPARISON: 11/02/2014 chest radiographs. TECHNIQUE: Frontal view of the chest was obtained. FINDINGS: No significant abnormality is noted involving the heart, lungs, mediastinum, bony thorax or soft tissues. Multilevel sternotomy wires are intact. XR/XR chest 1V IMPRESSION: No acute cardiopulmonary process. ? Dictated By: Abhinav Rawls MD Signed By: <Electronically signed by Abhinav Rawls MD in [place]> 04/29/229 DD/ 1512 TD/TT:? Silk Snapper: PHIL <Sofie Black NP - Last Filed: 04/29/22 18:14> CT PE study: Attestation: I personally reviewed and interpreted this imaging study as follows: <Suyapa Frances NP - Last Filed: 04/29/22 20:38> Radiologist's impression: EXAMINATION: CTA CHEST WITHOUT AND WITH CONTRAST (PE STUDY) CLINICAL INFORMATION: Shortness of breath. Elevated d-dimer. Nausea, anorexia? COMPARISON: Portions of a CT abdomen pelvis 12/27/21? TECHNIQUE: CT angiography of the chest. Multidetector CT helical examination of the chest during the rapid IV administration 75 mL of intravenous Omnipaque 350. Multidetector CT of the abdomen and pelvis following IV contrast. Extensive postprocessing was performed including reformatting and multiplanar reconstructions with maximum intensity projections. Pulmonary embolus technique. This CT examination was performed using dose optimization techniques as appropriate, variously including the following: *Automated exposure control *Adjustment of mA and/or kV according to patient size (this includes techniques or standardized protocols for targeted exams where dose is matched to indication/reason for exam; i.e. extremities or head) *Use of iterative reconstruction technique DLP: 807 mGy-cm. FINDINGS: The bolus is adequate for assessment of the central pulmonary arteries. There is no pulmonary embolus demonstrated. The main pulmonary artery is normal caliber. The timing of contrast enhancement is suboptimal for assessing the aorta. There has been previous coronary artery bypass grafting. There is no thoracic aortic aneurysm. There is extensive plaque at the great vessels. The heart is not significantly enlarged. There is no pericardial fluid. There are no enlarged mediastinal lymph nodes. No suspicious abnormality of the aorta. There is no abnormality of the trachea or mainstem bronchi. There is no pulmonary edema. There is motion artifact limiting lung detail. There are bilateral opacities at least most of which is due to atelectasis. No significant pleural fluid or pneumothorax. There are no enlarged axillary lymph nodes. Previous sternotomy. No suspicious focal bony lesion demonstrated in the chest.. ABDOMEN/PELVIS: Liver, Gallbladder, And Biliary Tree: No suspicious focal liver lesion. There is no definite opaque gallstone. No pericholecystic fluid.? Pancreas: No suspicious mass. No localized peripancreatic fluid.? Spleen: Within normal limits? Adrenal Glands: Normal? Kidneys And Ureters: There is no dilation of the urinary collecting system on either side. There are some areas of cortical thinning. There are some calcifications which could be nonobstructing small calculi or vascular calcifications. There is no suspicious renal mass. The nephrograms are symmetric? Gastrointestinal Tract: No localized colonic wall thickening or pericolonic fat stranding. No significant small bowel dilation. The stomach is not well distended.? No CT evidence of acute appendicitis. Abdominal Wall: No significant hernia is appreciated.? Lymphovascular Structures And Fluid: There is marked calcified atherosclerotic plaque including the aorta and the visceral branches.? Bladder: No focal abnormality.? Pelvic Viscera: No suspicious abnormality. The uterus is retroverted Musculoskeletal: No acute or suspicious osseous abnormality.? CT/CT angio chest PE protocol IMPRESSION: No pulmonary embolus demonstrated. ? No pneumonia or edema. ? There is some atelectasis. ? Extensive atherosclerosis with calcified plaque throughout the aorta and its visceral branches. ? There may be a small nonobstructing left renal calculus. ? No significant intraperitoneal fluid. No evidence of bowel obstruction ? VTE:? negative <Suyapa Frances NP - Last Filed: 04/29/22 20:38> CT abdomen pelvis: Attestation: I personally reviewed and interpreted this imaging study as follows: <Suyapa Frances NP - Last Filed: 04/29/22 20:38> Radiologist's impression: FINDINGS: The bolus is adequate for assessment of the central pulmonary arteries. There is no pulmonary embolus demonstrated. The main pulmonary artery is normal caliber. The timing of contrast enhancement is suboptimal for assessing the aorta. There has been previous coronary artery bypass grafting. There is no thoracic aortic aneurysm. There is extensive plaque at the great vessels. The heart is not significantly enlarged. There is no pericardial fluid. There are no enlarged mediastinal lymph nodes. No suspicious abnormality of the aorta. There is no abnormality of the trachea or mainstem bronchi. There is no pulmonary edema. There is motion artifact limiting lung detail. There are bilateral opacities at least most of which is due to atelectasis. No significant pleural fluid or pneumothorax. There are no enlarged axillary lymph nodes. Previous sternotomy. No suspicious focal bony lesion demonstrated in the chest.. ABDOMEN/PELVIS: Liver, Gallbladder, And Biliary Tree: No suspicious focal liver lesion. There is no definite opaque gallstone. No pericholecystic fluid.? Pancreas: No suspicious mass. No localized peripancreatic fluid.? Spleen: Within normal limits? Adrenal Glands: Normal? Kidneys And Ureters: There is no dilation of the urinary collecting system on either side. There are some areas of cortical thinning. There are some calcifications which could be nonobstructing small calculi or vascular calcifications. There is no suspicious renal mass. The nephrograms are symmetric? Gastrointestinal Tract: No localized colonic wall thickening or pericolonic fat stranding. No significant small bowel dilation. The stomach is not well distended.? No CT evidence of acute appendicitis. Abdominal Wall: No significant hernia is appreciated.? Lymphovascular Structures And Fluid: There is marked calcified atherosclerotic plaque including the aorta and the visceral branches.? Bladder: No focal abnormality.? Pelvic Viscera: No suspicious abnormality. The uterus is retroverted Musculoskeletal: No acute or suspicious osseous abnormality.? CT/CT abdomen pelvis w IV con IMPRESSION: No pulmonary embolus demonstrated. ? No pneumonia or edema. ? There is some atelectasis. ? Extensive atherosclerosis with calcified plaque throughout the aorta and its visceral branches. ? There may be a small nonobstructing left renal calculus. ? No significant intraperitoneal fluid. No evidence of bowel obstruction ? VTE:? negative <Suyapa Frances NP - Last Filed: 04/29/22 20:38> ECG Data Attestation: I personally reviewed and interpreted this ECG as follows: (NSR) <Sofie Black NP - Last Filed: 04/29/22 18:14> Interpretation: Test Reason : SOB Blood Pressure : / mmHG Vent. Rate : 076 BPM ? ? Atrial Rate : 076 BPM ?? P-R Int : 154 ms? QRS Dur : 088 ms ? ? QT Int : 398 ms ? ? ? P-R-T Axes : 063 002 067 degrees ?? QTc Int : 447 ms ? 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 Referred By: Sofie Black ? Electronically Signed By: Dictated By: Signed By: DD/ 14 TD/TT: 04/29/221518 Silk Snapper: <Sofie Black NP - Last Filed: 04/29/22 18:14> Discharge Plan Discharge Clinical Impression: Dyspnea, Nausea <Sofie Black NP - Last Filed: 04/29/22 18:14> Patient Disposition: Home, Self-Care <Sofie Black NP - Last Filed: 04/29/22 18:14> Additional Instructions: Zofran sublingual prescribed to your preferred pharmacy for treatment of nausea. Please return to the emergency department with fever, chills, increased shortness of breath, chest pain, epigastric pain, abdominal pain, diarrhea, vomiting, or any other concerns that you may have. Recommended to follow-up with your primary care provider for further management. <Sofie Black NP - Last Filed: 04/29/22 18:14> Prescriptions: New ondansetron 4 mg tablet,disintegrating 4 mg PO Q8H 5 Days Qty: 15 0RF No Action clopidogrel [Plavix] 75 mg tablet 75 mg PO DAILY Qty: 90 2RF amlodipine 10 mg tablet PO omeprazole 40 mg capsule,delayed release(DR/EC) PO losartan 50 mg tablet PO metoprolol tartrate 50 mg tablet PO isosorbide mononitrate 60 mg tablet extended release 24 hr PO atorvastatin 10 mg tablet PO aspirin 81 mg tablet,delayed release (DR/EC) 81 mg PO DAILY <Sofie Black NP - Last Filed: 04/29/22 18:14> Print Language: Bahamian <Sofie Black [employer] - Last Filed: 04/29/22 18:14>
[2022-04-29 16:10] LABS: Alanine Aminotransferase 18 U/L (0-31); Albumin Level 3.6 g/dL (3.5-5.0); Alkaline Phosphatase 52 U/L (39-117); Anion Gap 14 (12-20); Aspartate Amino Transferase 14 U/L (5-31); Blood Urea Nitrogen 23 mg/dL (9-16); Calcium 9.1 mg/dL (8.4-10.2); Carbon Dioxide 25 mmol/L (22-29); Chloride 97 mmol/L (96-108); Estimated Glomerular Filt Rate 47; Glucose Random 100 mg/dL (60-115); Potassium 4.9 mmol/L (3.3-5.1); Sodium 131 mmol/L (135-145); TSH reflex Free T4 1.34 uIU/mL (0.32-4.0); Total Protein 6.2 g/dL (6.5-8.0)
[2022-04-29 16:14] LABS: Influenza A PCR NEGATIVE (Negative); Influenza B PCR NEGATIVE (Negative); Resp Syncy Virus RNA Qual PCR NEGATIVE (Negative); SARS COV2 PCR INHOUSE NEGATIVE (Negative)
--- NOTE | 2022-04-29 16:53 | PC.NURSE ---
Pt awaiting further imaging at this time.
[2022-04-29 17:14] VITALS: BP 115/48; PULSE 73; RESP 21; TEMP 37.2; O2SAT 91
[2022-04-29 18:34] VITALS: BP 139/49; PULSE 72; RESP 12; TEMP 36.8; O2SAT 92
[2022-04-29] MEDS: iohexoL 350 MG/ML 100 ML INFUS..BTL IV (18:34)
[2022-04-29] MEDS: 0.9 % Sodium Chloride 1,000 ML 999 ML IVCONT (18:46)
[2022-04-29 20:52] VITALS: BP 149/54; PULSE 68; RESP 16; TEMP 36.6; O2SAT 94
== END 2022-04-29 21:06 | disposition home or self-care (01) ==
PROVIDERS: Nurse Practitioner Family; Emergency Provider Emergency Medicine; PCP Internal Medicine
DX: R06.02 Shortness of breath (principal); I25.10 Atherosclerotic heart disease of native coronary artery without angina pectoris; I10 Essential (primary) hypertension; R05.9 Cough, unspecified; R11.2 Nausea with vomiting, unspecified; R35.0 Frequency of micturition; R26.81 Unsteadiness on feet; R10.2 Pelvic and perineal pain; Z20.822 Contact with and (suspected) exposure to COVID-19; Z79.899 Other long term (current) drug therapy
CPT/HCPCS: 0241U; 36415; 71045; 71275; 74177; 80053; 82550; 84443; 84484; 85025; 85379; 93005; 99285; Q9967

== ENCOUNTER 2022-05-15 11:38 | Inpatient (IN) | payer MEDICARE, SELFPAY ==
--- NOTE | ~2022-05-15 | XR_ITS ---
EXAMINATION: XR CHEST CLINICAL INFORMATION: Altered mental status, dysarthria. COMPARISON: 04/29/2022 chest radiographs. TECHNIQUE: 2 views of the chest were obtained. FINDINGS: Support devices: Multilevel sternotomy wires are intact. Multiple surgical clips overlie the cardiomediastinal silhouette. No significant abnormality is noted involving the heart, lungs, mediastinum, bony thorax or soft tissues. XR/XR chest 2V IMPRESSION: No acute cardiopulmonary process.
--- NOTE | ~2022-05-15 | MR_ITS ---
EXAMINATION: MR BRAIN WITHOUT CONTRAST CLINICAL INFORMATION: New seizure. COMPARISON: MRI dated 04/15/2013. Head CT from 05/15/2022. TECHNIQUE: Multiplanar, multisequence imaging of the brain was performed without contrast. FINDINGS: No diffusion abnormalities are identified to suggest an acute infarct. Generalized parenchymal volume loss evident with concordant ex vacuo dilatation of the ventricles. There is a chronic infarct in the left basal ganglia. No mass effect or midline shift is seen. Moderate to severe chronic small vessel ischemic changes noted in the cerebral white matter of both hemispheres and in the brainstem. No extra-axial fluid collections are seen. The cerebellum is normal. The hippocampi are normal in appearance. The gradient refocused acquisition demonstrates no pathologic magnetic susceptibility artifact to indicate underlying acute or chronic blood products. The craniovertebral junction, marrow signal, and midline structures are normal. The major intracranial flow voids at the level of the [place] are preserved. The dural venous sinus flow voids are maintained. The mastoid air cells and paranasal sinuses are well aerated. MR/MR head/brain wo con IMPRESSION: No acute intracranial process. Extensive chronic white matter microangiopathy and generalized parenchymal volume loss with a chronic left striatocapsular infarct. No hippocampal pathology.
--- NOTE | ~2022-05-15 | CT_ITS ---
EXAMINATION: CT HEAD WITHOUT CONTRAST CLINICAL INFORMATION: Dysarthria. COMPARISON: CT head 06/30/2019. TECHNIQUE: Contiguous axial imaging was performed from the skull base to vertex without intravenous administration of contrast. This CT examination was performed using dose optimization techniques as appropriate, variously including the following: *Automated exposure control *Adjustment of mA and/or kV according to patient size (this includes techniques or standardized protocols for targeted exams where dose is matched to indication/reason for exam; i.e. extremities or head) *Use of iterative reconstruction technique DLP: 644 mGy-cm FINDINGS: There is no acute intracranial hemorrhage or abnormal extra-axial collection. No intracranial mass effect or midline shift. No hydrocephalus. There is a chronic left striatocapsular infarct and numerous foci of hypoattenuation within the periventricular white matter most likely represent a chronic manifestation of small vessel ischemia. Grossly no evidence of acute territorial infarct. The calvarium and skull base are intact. Mastoid air cells and middle ear cavities are well aerated. No active paranasal sinus disease. CT/CT head/brain wo IV con IMPRESSION: There is a chronic left striatocapsular infarct and numerous chronic small vessel ischemic changes primarily involving the periventricular white matter. No evidence of acute territorial infarct or hemorrhage.
[2022-05-15 11:40] VITALS: BP 210/96; PULSE 113; RESP 18; O2SAT 97; BMI 29.2
--- NOTE | 2022-05-15 11:47 | ECG_ITS ---
Test Reason : AMS Blood Pressure : / mmHG Vent. 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
--- NOTE | 2022-05-15 11:48 | ED.NEUROSD ---
HPI - Neuro Symptoms/Deficit General Chief Complaint: Altered Mental Status <CHARLINE Alanis - Last Filed: 05/15/22 11:51> Stated Complaint: AMS Sent by Dr <CHARLINE Alanis - Last Filed: 05/15/22 11:51> Time Seen by Provider: 05/15/22 13:16 <CHARLINE Alanis - Last Filed: 05/15/22 11:51> Source: patient, family and old records reviewed <Elsa Pemberton MD - Last Filed: 05/15/22 17:15> Mode of arrival: ambulatory <Elsa Pemberton MD - Last Filed: 05/15/22 17:15> Limitations: no limitations <Elsa Pemberton MD - Last Filed: 05/15/22 17:15> History of Present Illness HPI Narrative: 86-year-old female brought in by her family have from PCP office for change mental status over the past 3 days. Patient for the past 3 days been having increased confusion, generalized weakness went to see her PCP today who sent her to the hospital for further evaluation patient has been placed on prednisone for the last 3 weeks for what the family report muscular disorder (record from PCP is not available but patient been taking high doses of prednisone for the past 3 weeks with improvement of her generalized weakness) lately patient with increased confusion and laughing for no reason patient also is less talkative to the family. Patient at baseline lives home with her son mostly independent but for the past 3 days is becoming more dependent, no fever, no chills, no focal neurological deficit. <Elsa Pemberton MD - Last Filed: 05/15/22 17:15> Related Data Home Medications: Home Medications Medication Instructions Recorded Confirmed atorvastatin 10 mg tablet 10 mg PO DAILY 10/09/21 05/15/22 isosorbide mononitrate 60 mg 60 mg PO DAILY 10/09/21 05/15/22 tablet,extended release 24 hr losartan 50 mg tablet 50 mg PO DAILY 10/09/21 05/15/22 metoprolol tartrate 50 mg tablet 50 mg PO BID 10/09/21 05/15/22 omeprazole 40 mg capsule,delayed 40 mg PO DAILY@0630 10/09/21 05/15/22 release aspirin 81 mg tablet,delayed 81 mg PO DAILY 12/19/21 05/15/22 release amlodipine 10 mg tablet 1 tab PO DAILY 05/15/22 05/15/22 ondansetron 4 mg disintegrating 4 mg PO Q8H PRN Nausea 05/15/22 05/15/22 tablet prednisone 50 mg tablet 50 mg PO DAILY 05/15/22 05/15/22 Previous Rx's Medication Instructions Recorded clopidogrel 75 mg tablet (Plavix) 75 mg PO DAILY #90 tabs 01/24/22 <CHARLINE Alanis - Last Filed: 05/15/22 11:51> Allergies/Adverse Reactions: Allergies Allergy/AdvReac Type Severity Reaction Status Date / Time Tbltalp-CPN-QvN Reductase AdvReac Unknown LEG PAIN Verified 02/06/22 09:41 Inhibitor [BONEEZT-JET-IUD REDUCTASE INHIBITOR] <CHARLINE Alanis - Last Filed: 05/15/22 11:51> Review of Systems Review of Systems: Yes Unobtainable due to mental status <Elsa Pemberton MD - Last Filed: 05/15/22 17:15> [facility] Past Medical History Medical History: Medical History (Updated 05/15/22 @ 15:24 by FRANSICO Sanchez) CAD (coronary artery disease) Change in mole Claudication of left lower extremity CVA (cerebral vascular accident) Dry eye High cholesterol HTN (hypertension) Leg cramps Nocturia Peripheral neuropathy Post-nasal drip <CHARLINE Alanis - Last Filed: 05/15/22 11:51> Surgical History: Surgical History History of CEA (carotid endarterectomy) Hx of CABG <CHARLINE Alanis - Last Filed: 05/15/22 11:51> Family History Family History: Family History Father No problems noted. Mother No problems noted. <CHARLINE Alanis - Last Filed: 05/15/22 11:51> Social History Social History: Social History Patient Tobacco Use Status: Never used Tobacco Advance Directives: No Patient : No <CHARLINE Alanis - Last Filed: 05/15/22 11:51> Physical Exam Vital Signs: Vital Signs: Last Vital Signs Temp 98.1 F 05/15/22 15:46 Pulse 138 H 05/15/22 15:46 Resp 20 05/15/22 15:46 BP 185/69 H 05/15/22 15:46 Pulse Ox 96 05/15/22 15:46 O2 Del Method 05/15/22 15:46 BMI result Body Mass Index 29.2 <CHARLINE Alanis - Last Filed: 05/15/22 11:51> Vital Signs: Last Vital Signs Temp 98.1 F 05/15/22 15:46 Pulse 138 H 05/15/22 15:46 Resp 20 05/15/22 15:46 BP 185/69 H 05/15/22 15:46 Pulse Ox 96 05/15/22 15:46 O2 Del Method 05/15/22 15:46 BMI result Body Mass Index 29.2 Vital signs have been reviewed as appeared to be correct. Blood pressure elevated. Heart rate elevated. Respiration rate normal. Temperature normal. Oxygen saturation normal. <Elsa Pemberton MD - Last Filed: 05/15/22 17:15> Appearance: Alert. Oriented X3. No acute distress. Head: Normal external exam. Normocephalic. Atraumatic. No Shukla signs noted. No raccoon eyes noted Eyes: PERRLA. EOMI. Conjunctiva and sclera normal. Eyelids normal. ENT: TM's Normal. Pharynx normal. Uvula midline. Moist mucous membranes. No trismus noted. No drooling noted. No muffled voice noted. Neck: Normal inspection. Neck supple. FROM. No adenopathy. Thyroid Normal. No meningeal signs. No neck mass noted. CVS: Normal heart rate and rhythm. Heart sound normal. No murmurs noted. Pulses normal throughout. Respiratory: No respiratory distress. Painless inspiration. Breath sounds normal. No wheezes/rales/rhonchi noted. Chest nontender. No accessory muscle usage noted or decreased air movement noted. Abdomen: Soft and nontender. Bowel sounds normal in all 4 quadrants. No distention noted. No organomegaly noted. No visible injury noted. Back: No CVA tenderness. Full range of motion noted. Skin: Skin warm and dry. Normal skin color. Normal skin turgor. No rashes/lesions/lacerations noted. Extremities: No lower extremity edema. Extremities exhibit normal range of motion. Extremities nontender. Neuro: Oriented X 3. Cranial nerve exam: II-XII are grossly intact No motor deficit. No sensory deficit. Reflexes normal. (disagree with the RME who stated who stated that up right upper extremities weakness). Patient has a generalized body weakness rather than focal upper extremities weakness. <Elsa Pemberton MD - Last Filed: 05/15/22 17:15> Course Course Course Narrative: 11:45am - 86yoF presenting to the ER with family at bedside 1 of her family members who she lives with reports that approximately 2-3 days ago she started having altered mental status, confusion, weakness with decreased mobility and difficulty speaking. She was seen by 1 of her providers today and they explained to the family that this was not her baseline therefore they sent her here for further evaluation treatment. She is only on a baby aspirin no other blood thinners. On exam she is noted to have dysarthria. Also noted to have right-sided upper extremity weakness. The rest of the neuro exam was deferred at this time and patient was brought straight into the emergency department for further evaluation treatment CT scan of brain, labs, EKG, chest x-ray, COVID swab and UA was ordered. <CHARLINE Alanis - Last Filed: 05/15/22 11:51> Reevaluation(s) Reevaluation #1: 86 female came in from PCP office for 3 days of confusion and dilution patient has UTI meeting criteria for SIRS but no severe sepsis patient also been on high dose of prednisone by her PCP for 3 weeks, head CT is negative neuro exam otherwise unremarkable. 1. Cover with ceftriaxone for UTI patient meets criteria for SIRS but no severe sepsis. . 2. Possible acute medical delirium secondary to high dose of prednisone for the past 3 weeks will admit for tapering patient of prednisone. <Elsa Pemberton MD - Last Filed: 05/15/22 17:15> Time: 14:18 <Elsa Pemberton MD - Last Filed: 05/15/22 17:15> Reevaluation #2: Patient has been admitted to the hospitalist service while waiting in the emergency room to go upstairs patient was on the commode trying to have a bowel movement witnessed by the nurse to have generalized tonic clonic seizure activity that broke on its own, patient had about 15 minutes typical postictal period. Patient will be given 2 mg of Ativan. As per family patient never had history of seizures. Will obtain inpatient neurology consult. <Elsa Pemberton MD - Last Filed: 05/15/22 17:15> Time: 15:32 <Elsa Pemberton MD - Last Filed: 05/15/22 17:15> Reevaluation #3: Patient found to be in new onset atrial fibrillation at rate of 140, was given Cardizem 20 mg IV/30 mg p.o.,, now heart rate is in the 90s. <Elsa Pemberton MD - Last Filed: 05/15/22 17:15> Time: 17:14 <Elsa Pemberton MD - Last Filed: 05/15/22 17:15> Medications Administered Generic Name Dose Route Start Last Admin Trade Name Freq PRN Reason Stop Dose Admin Ceftriaxone Sodium 1 gm/ 50 mls @ 100 mls/hr 05/15/22 14:45 05/15/22 14:53 Sodium Chloride IV Not Given Q24H LLUVIA Discontinued Medications Generic Name Dose Route Start Last Admin Trade Name Freq PRN Reason Stop Dose Admin Diltiazem HCl 20 mg 05/15/22 15:41 05/15/22 16:05 Diltiazem Hcl 50 Mg/10 Ml Vial IVPUSH 05/15/22 15:42 20 mg STAT STA Administration Sodium Chloride 1,000 mls @ 999 mls/hr 05/15/22 13:18 05/15/22 17:11 Ns IV 05/15/22 14:18 Infused .Q1H1M ONE Infusion Ceftriaxone Sodium 1 gm/ 50 mls @ 100 mls/hr 05/15/22 13:44 05/15/22 17:11 Sodium Chloride IV 05/15/22 14:13 Infused ONCE ONE Infusion Isosorbide Mononitrate 60 mg 05/15/22 16:00 05/15/22 17:11 Isosorbide Mononitrate 60 Mg Tab.Er.24h PO Not Given DAILY LLUVIA Protocol Lorazepam 2 mg 05/15/22 15:30 05/15/22 16:04 Lorazepam 2 Mg/Ml Vial IVPUSH 05/15/22 15:31 2 mg ONCE ONE Administration <CHARLINE Alanis - Last Filed: 05/15/22 11:51> Medications Administered Generic Name Dose Route Start Last Admin Trade Name Freq PRN Reason Stop Dose Admin Ceftriaxone Sodium 1 gm/ 50 mls @ 100 mls/hr 05/15/22 14:45 05/15/22 14:53 Sodium Chloride IV Not Given Q24H LLUVIA Discontinued Medications Generic Name Dose Route Start Last Admin Trade Name Freq PRN Reason Stop Dose Admin Diltiazem HCl 20 mg 05/15/22 15:41 05/15/22 16:05 Diltiazem Hcl 50 Mg/10 Ml Vial IVPUSH 05/15/22 15:42 20 mg STAT STA Administration Sodium Chloride 1,000 mls @ 999 mls/hr 05/15/22 13:18 05/15/22 17:11 Ns IV 05/15/22 14:18 Infused .Q1H1M ONE Infusion Ceftriaxone Sodium 1 gm/ 50 mls @ 100 mls/hr 05/15/22 13:44 05/15/22 17:11 Sodium Chloride IV 05/15/22 14:13 Infused ONCE ONE Infusion Isosorbide Mononitrate 60 mg 05/15/22 16:00 05/15/22 17:11 Isosorbide Mononitrate 60 Mg Tab.Er.24h PO Not Given DAILY LLUVIA Protocol Lorazepam 2 mg 05/15/22 15:30 05/15/22 16:04 Lorazepam 2 Mg/Ml Vial IVPUSH 05/15/22 15:31 2 mg ONCE ONE Administration <Elsa Pemberton MD - Last Filed: 05/15/22 17:15> Medical Decision Making Differential Diagnosis Differential Diagnoses: The differential diagnosis associated with the presentation includes (Intracranial bleed/stroke/UTI/acute delirium caused by prednisone.) <Elsa Pemberton MD - Last Filed: 05/15/22 17:15> Admission/Observation Consideration of admission/observation: Escalation of care including admission/observation considered <Elsa Pemberton MD - Last Filed: 05/15/22 17:15> Consult Healthcare Provider Management of the patient was discussed with: Hospitalist <Elsa Pemberton MD - Last Filed: 05/15/22 17:15> Lab Data MDM Lab Attestation statement: I reviewed the patient's lab results. <Elsa Pemberton MD - Last Filed: 05/15/22 17:15> Result Diagrams: : 05/15/22 12:00 05/15/22 12:00 <CHARLINE Alanis - Last Filed: 05/15/22 11:51> Labs: Lab Results 05/15/22 05/15/22 05/15/22 Range/Units 12:00 12:00 12:00 WBC 16.3 H (4.8-10.8) X10*3/uL RBC 5.67 H D (4.20-5.50) X10*6/uL Hgb 17.1 H D (12.0-16.0) g/dl Hct 49.8 H D (37.0-47.0) % MCV 87.8 (80.0-98.0) fL MCH 30.2 (27.0-33.0) pg MCHC 34.3 (31.0-35.0) g/dl RDW 13.3 (11.0-16.0) % Plt Count 201 (160-400) X10*3/uL MPV 9.7 (9.4-12.3) fL Immature Gran % (Auto) 0.7 H (0.0-0.4) % Neut % (Auto) 80.9 H (45-73) % Lymph % (Auto) 10.4 L (20-40) % [place] % (Auto) 6.6 (2-11) % Eos % (Auto) 1.2 (0-4) % Baso % (Auto) 0.2 (0-2) % Lymph # (Auto) 1.7 (1.2-4.9) X10*3/uL [place] # (Auto) 1.1 (0.1-1.2) X10*3/uL Eos # (Auto) 0.2 (0.0-0.4) X10*3/uL Baso # (Auto) 0.0 (0.0-0.2) X10*3/uL Abs Immat Gran (auto) 0.12 H (0.00-0.03) X10*3/uL Absolute Neuts (auto) 13.2 H (2.0-8.3) x10*3/uL Absolute Nucleated RBC 0.000 (0.0-0.012) X10*3/uL Nucleated RBC % (auto) 0.0 (0.0-0.2) /100WBC PT 10.4 (10.0-13.1) SEC INR 0.9 (0.9-1.1) APTT 21.3 L (26.0-36.4) SEC Sodium 136 (135-145) mmol/L Potassium 3.8 D (3.3-5.1) mmol/L Chloride 98 (96-108) mmol/L Carbon Dioxide 24 (22-29) mmol/L Anion Gap 18 (12-20) BUN 34 H (9-16) mg/dL Creatinine 1.04 (0.5-1.4) mg/dL Estim Creat Clear Calc 38.3 Estimated GFR 50 Random Glucose 89 (60-115) mg/dL Calcium 10.5 H D (8.4-10.2) mg/dL Magnesium 2.2 (1.6-2.6) mg/dL Total Bilirubin 1.3 H (0.0-1.0) mg/dL AST 27 (5-31) U/L ALT 45 H (0-31) U/L Alkaline Phosphatase 59 (39-117) U/L Troponin I High Sens (<3.5-17.0) ng/L B-Natriuretic Peptide (<100) pg/mL Total Protein 7.3 (6.5-8.0) g/dL Albumin 4.2 (3.5-5.0) g/dL Urine Color Urine Appearance Urine pH (5.0-9.0) Ur Specific [place] (1.005-1.025) Urine Protein (Neg-Trace) mg/dL Urine Glucose (UA) (Negative) mg/dL Urine Ketones (Negative) mg/dL Urine Blood (Negative) Urine Nitrite (Negative) Ur Leukocyte Esterase (Negative) Urine RBC (0-2) /HPF Urine WBC (0-5) /HPF Ur Squamous Epith Cells (0-2) /HPF Urine Bacteria (None Seen) Hyaline Casts (0-2) /LPF COVID-19 (LINDA) (Negative) COVID-19 Clin Com 05/15/22 05/15/22 05/15/22 Range/Units 12:00 12:00 12:01 WBC (4.8-10.8) X10*3/uL RBC (4.20-5.50) X10*6/uL Hgb (12.0-16.0) g/dl Hct (37.0-47.0) % MCV (80.0-98.0) fL MCH (27.0-33.0) pg MCHC (31.0-35.0) g/dl RDW (11.0-16.0) % Plt Count (160-400) X10*3/uL MPV (9.4-12.3) fL Immature Gran % (Auto) (0.0-0.4) % Neut % (Auto) (45-73) % Lymph % (Auto) (20-40) % [place] % (Auto) (2-11) % Eos % (Auto) (0-4) % Baso % (Auto) (0-2) % Lymph # (Auto) (1.2-4.9) X10*3/uL [place] # (Auto) (0.1-1.2) X10*3/uL Eos # (Auto) (0.0-0.4) X10*3/uL Baso # (Auto) (0.0-0.2) X10*3/uL Abs Immat Gran (auto) (0.00-0.03) X10*3/uL Absolute Neuts (auto) (2.0-8.3) x10*3/uL Absolute Nucleated RBC (0.0-0.012) X10*3/uL Nucleated RBC % (auto) (0.0-0.2) /100WBC PT (10.0-13.1) SEC INR (0.9-1.1) APTT Cancelled (26.0-36.4) SEC Sodium (135-145) mmol/L Potassium (3.3-5.1) mmol/L Chloride (96-108) mmol/L Carbon Dioxide (22-29) mmol/L Anion Gap (12-20) BUN (9-16) mg/dL Creatinine (0.5-1.4) mg/dL Estim Creat Clear Calc Estimated GFR Random Glucose (60-115) mg/dL Calcium (8.4-10.2) mg/dL Magnesium (1.6-2.6) mg/dL Total Bilirubin (0.0-1.0) mg/dL AST (5-31) U/L ALT (0-31) U/L Alkaline Phosphatase (39-117) U/L Troponin I High Sens 29.2 H D (<3.5-17.0) ng/L B-Natriuretic Peptide (<100) pg/mL Total Protein (6.5-8.0) g/dL Albumin (3.5-5.0) g/dL Urine Color Urine Appearance Urine pH (5.0-9.0) Ur Specific [place] (1.005-1.025) Urine Protein (Neg-Trace) mg/dL Urine Glucose (UA) (Negative) mg/dL Urine Ketones (Negative) mg/dL Urine Blood (Negative) Urine Nitrite (Negative) Ur Leukocyte Esterase (Negative) Urine RBC (0-2) /HPF Urine WBC (0-5) /HPF Ur Squamous Epith Cells (0-2) /HPF Urine Bacteria (None Seen) Hyaline Casts (0-2) /LPF COVID-19 (LINDA) Negative (Negative) COVID-19 Clin Com See Note 05/15/22 05/15/22 05/15/22 Range/Units 13:21 13:37 13:37 WBC (4.8-10.8) X10*3/uL RBC (4.20-5.50) X10*6/uL Hgb (12.0-16.0) g/dl Hct (37.0-47.0) % MCV (80.0-98.0) fL MCH (27.0-33.0) pg MCHC (31.0-35.0) g/dl RDW (11.0-16.0) % Plt Count (160-400) X10*3/uL MPV (9.4-12.3) fL Immature Gran % (Auto) (0.0-0.4) % Neut % (Auto) (45-73) % Lymph % (Auto) (20-40) % [place] % (Auto) (2-11) % Eos % (Auto) (0-4) % Baso % (Auto) (0-2) % Lymph # (Auto) (1.2-4.9) X10*3/uL [place] # (Auto) (0.1-1.2) X10*3/uL Eos # (Auto) (0.0-0.4) X10*3/uL Baso # (Auto) (0.0-0.2) X10*3/uL Abs Immat Gran (auto) (0.00-0.03) X10*3/uL Absolute Neuts (auto) (2.0-8.3) x10*3/uL Absolute Nucleated RBC (0.0-0.012) X10*3/uL Nucleated RBC % (auto) (0.0-0.2) /100WBC PT (10.0-13.1) SEC INR (0.9-1.1) APTT (26.0-36.4) SEC Sodium (135-145) mmol/L Potassium (3.3-5.1) mmol/L Chloride (96-108) mmol/L Carbon Dioxide (22-29) mmol/L Anion Gap (12-20) BUN (9-16) mg/dL Creatinine (0.5-1.4) mg/dL Estim Creat Clear Calc Estimated GFR Random Glucose (60-115) mg/dL Calcium (8.4-10.2) mg/dL Magnesium (1.6-2.6) mg/dL Total Bilirubin (0.0-1.0) mg/dL AST (5-31) U/L ALT (0-31) U/L Alkaline Phosphatase (39-117) U/L Troponin I High Sens 30.1 H (<3.5-17.0) ng/L B-Natriuretic Peptide 80 (<100) pg/mL Total Protein (6.5-8.0) g/dL Albumin (3.5-5.0) g/dL Urine Color Yellow Urine Appearance Clear Urine pH 6.5 (5.0-9.0) Ur Specific [place] 1.010 (1.005-1.025) Urine Protein 100 (2+) H (Neg-Trace) mg/dL Urine Glucose (UA) Negative (Negative) mg/dL Urine Ketones Negative (Negative) mg/dL Urine Blood Negative (Negative) Urine Nitrite Negative (Negative) Ur Leukocyte Esterase Small (1+) H (Negative) Urine RBC 0-2 (0-2) /HPF Urine WBC 11-20 H (0-5) /HPF Ur Squamous Epith Cells 0-2 (0-2) /HPF Urine Bacteria None Seen (None Seen) Hyaline Casts 0-2 (0-2) /LPF COVID-19 (LINDA) (Negative) COVID-19 Clin Com <CHARLINE Alanis - Last Filed: 05/15/22 11:51> Lab Results 05/15/22 05/15/22 05/15/22 Range/Units 12:00 12:00 12:00 WBC 16.3 H (4.8-10.8) X10*3/uL RBC 5.67 H D (4.20-5.50) X10*6/uL Hgb 17.1 H D (12.0-16.0) g/dl Hct 49.8 H D (37.0-47.0) % MCV 87.8 (80.0-98.0) fL MCH 30.2 (27.0-33.0) pg MCHC 34.3 (31.0-35.0) g/dl RDW 13.3 (11.0-16.0) % Plt Count 201 (160-400) X10*3/uL MPV 9.7 (9.4-12.3) fL Immature Gran % (Auto) 0.7 H (0.0-0.4) % Neut % (Auto) 80.9 H (45-73) % Lymph % (Auto) 10.4 L (20-40) % [place] % (Auto) 6.6 (2-11) % Eos % (Auto) 1.2 (0-4) % Baso % (Auto) 0.2 (0-2) % Lymph # (Auto) 1.7 (1.2-4.9) X10*3/uL [place] # (Auto) 1.1 (0.1-1.2) X10*3/uL Eos # (Auto) 0.2 (0.0-0.4) X10*3/uL Baso # (Auto) 0.0 (0.0-0.2) X10*3/uL Abs Immat Gran (auto) 0.12 H (0.00-0.03) X10*3/uL Absolute Neuts (auto) 13.2 H (2.0-8.3) x10*3/uL Absolute Nucleated RBC 0.000 (0.0-0.012) X10*3/uL Nucleated RBC % (auto) 0.0 (0.0-0.2) /100WBC PT 10.4 (10.0-13.1) SEC INR 0.9 (0.9-1.1) APTT 21.3 L (26.0-36.4) SEC Sodium 136 (135-145) mmol/L Potassium 3.8 D (3.3-5.1) mmol/L Chloride 98 (96-108) mmol/L Carbon Dioxide 24 (22-29) mmol/L Anion Gap 18 (12-20) BUN 34 H (9-16) mg/dL Creatinine 1.04 (0.5-1.4) mg/dL Estim Creat Clear Calc 38.3 Estimated GFR 50 Random Glucose 89 (60-115) mg/dL Calcium 10.5 H D (8.4-10.2) mg/dL Magnesium 2.2 (1.6-2.6) mg/dL Total Bilirubin 1.3 H (0.0-1.0) mg/dL AST 27 (5-31) U/L ALT 45 H (0-31) U/L Alkaline Phosphatase 59 (39-117) U/L Troponin I High Sens (<3.5-17.0) ng/L B-Natriuretic Peptide (<100) pg/mL Total Protein 7.3 (6.5-8.0) g/dL Albumin 4.2 (3.5-5.0) g/dL Urine Color Urine Appearance Urine pH (5.0-9.0) Ur Specific [place] (1.005-1.025) Urine Protein (Neg-Trace) mg/dL Urine Glucose (UA) (Negative) mg/dL Urine Ketones (Negative) mg/dL Urine Blood (Negative) Urine Nitrite (Negative) Ur Leukocyte Esterase (Negative) Urine RBC (0-2) /HPF Urine WBC (0-5) /HPF Ur Squamous Epith Cells (0-2) /HPF Urine Bacteria (None Seen) Hyaline Casts (0-2) /LPF COVID-19 (LINDA) (Negative) COVID-19 Clin Com 05/15/22 05/15/22 05/15/22 Range/Units 12:00 12:00 12:01 WBC (4.8-10.8) X10*3/uL RBC (4.20-5.50) X10*6/uL Hgb (12.0-16.0) g/dl Hct (37.0-47.0) % MCV (80.0-98.0) fL MCH (27.0-33.0) pg MCHC (31.0-35.0) g/dl RDW (11.0-16.0) % Plt Count (160-400) X10*3/uL MPV (9.4-12.3) fL Immature Gran % (Auto) (0.0-0.4) % Neut % (Auto) (45-73) % Lymph % (Auto) (20-40) % [place] % (Auto) (2-11) % Eos % (Auto) (0-4) % Baso % (Auto) (0-2) % Lymph # (Auto) (1.2-4.9) X10*3/uL [place] # (Auto) (0.1-1.2) X10*3/uL Eos # (Auto) (0.0-0.4) X10*3/uL Baso # (Auto) (0.0-0.2) X10*3/uL Abs Immat Gran (auto) (0.00-0.03) X10*3/uL Absolute Neuts (auto) (2.0-8.3) x10*3/uL Absolute Nucleated RBC (0.0-0.012) X10*3/uL Nucleated RBC % (auto) (0.0-0.2) /100WBC PT (10.0-13.1) SEC INR (0.9-1.1) APTT Cancelled (26.0-36.4) SEC Sodium (135-145) mmol/L Potassium (3.3-5.1) mmol/L Chloride (96-108) mmol/L Carbon Dioxide (22-29) mmol/L Anion Gap (12-20) BUN (9-16) mg/dL Creatinine (0.5-1.4) mg/dL Estim Creat Clear Calc Estimated GFR Random Glucose (60-115) mg/dL Calcium (8.4-10.2) mg/dL Magnesium (1.6-2.6) mg/dL Total Bilirubin (0.0-1.0) mg/dL AST (5-31) U/L ALT (0-31) U/L Alkaline Phosphatase (39-117) U/L Troponin I High Sens 29.2 H D (<3.5-17.0) ng/L B-Natriuretic Peptide (<100) pg/mL Total Protein (6.5-8.0) g/dL Albumin (3.5-5.0) g/dL Urine Color Urine Appearance Urine pH (5.0-9.0) Ur Specific [place] (1.005-1.025) Urine Protein (Neg-Trace) mg/dL Urine Glucose (UA) (Negative) mg/dL Urine Ketones (Negative) mg/dL Urine Blood (Negative) Urine Nitrite (Negative) Ur Leukocyte Esterase (Negative) Urine RBC (0-2) /HPF Urine WBC (0-5) /HPF Ur Squamous Epith Cells (0-2) /HPF Urine Bacteria (None Seen) Hyaline Casts (0-2) /LPF COVID-19 (LINDA) Negative (Negative) COVID-19 Clin Com See Note 05/15/22 05/15/22 05/15/22 Range/Units 13:21 13:37 13:37 WBC (4.8-10.8) X10*3/uL RBC (4.20-5.50) X10*6/uL Hgb (12.0-16.0) g/dl Hct (37.0-47.0) % MCV (80.0-98.0) fL MCH (27.0-33.0) pg MCHC (31.0-35.0) g/dl RDW (11.0-16.0) % Plt Count (160-400) X10*3/uL MPV (9.4-12.3) fL Immature Gran % (Auto) (0.0-0.4) % Neut % (Auto) (45-73) % Lymph % (Auto) (20-40) % [place] % (Auto) (2-11) % Eos % (Auto) (0-4) % Baso % (Auto) (0-2) % Lymph # (Auto) (1.2-4.9) X10*3/uL [place] # (Auto) (0.1-1.2) X10*3/uL Eos # (Auto) (0.0-0.4) X10*3/uL Baso # (Auto) (0.0-0.2) X10*3/uL Abs Immat Gran (auto) (0.00-0.03) X10*3/uL Absolute Neuts (auto) (2.0-8.3) x10*3/uL Absolute Nucleated RBC (0.0-0.012) X10*3/uL Nucleated RBC % (auto) (0.0-0.2) /100WBC PT (10.0-13.1) SEC INR (0.9-1.1) APTT (26.0-36.4) SEC Sodium (135-145) mmol/L Potassium (3.3-5.1) mmol/L Chloride (96-108) mmol/L Carbon Dioxide (22-29) mmol/L Anion Gap (12-20) BUN (9-16) mg/dL Creatinine (0.5-1.4) mg/dL Estim Creat Clear Calc Estimated GFR Random Glucose (60-115) mg/dL Calcium (8.4-10.2) mg/dL Magnesium (1.6-2.6) mg/dL Total Bilirubin (0.0-1.0) mg/dL AST (5-31) U/L ALT (0-31) U/L Alkaline Phosphatase (39-117) U/L Troponin I High Sens 30.1 H (<3.5-17.0) ng/L B-Natriuretic Peptide 80 (<100) pg/mL Total Protein (6.5-8.0) g/dL Albumin (3.5-5.0) g/dL Urine Color Yellow Urine Appearance Clear Urine pH 6.5 (5.0-9.0) Ur Specific [place] 1.010 (1.005-1.025) Urine Protein 100 (2+) H (Neg-Trace) mg/dL Urine Glucose (UA) Negative (Negative) mg/dL Urine Ketones Negative (Negative) mg/dL Urine Blood Negative (Negative) Urine Nitrite Negative (Negative) Ur Leukocyte Esterase Small (1+) H (Negative) Urine RBC 0-2 (0-2) /HPF Urine WBC 11-20 H (0-5) /HPF Ur Squamous Epith Cells 0-2 (0-2) /HPF Urine Bacteria None Seen (None Seen) Hyaline Casts 0-2 (0-2) /LPF COVID-19 (LINDA) (Negative) COVID-19 Clin Com <Elsa Pemberton MD - Last Filed: 05/15/22 17:15> Independent Interpretation I performed an independent interpretation of an: Plain X-Ray (Chest: No acute intrathoracic pathology.) and CT Scan (Head: No acute intracranial pathology.) <Elsa Pemberton MD - Last Filed: 05/15/22 17:15> Independent Historian Clinical information obtained from an independent historian. History obtained from or confirmed by: Other (Son and daughter in low) <Elsa Pemberton MD - Last Filed: 05/15/22 17:15> Critical Care Time Critical Care Time Critical Care Time: Yes <Elsa Pemberton MD - Last Filed: 05/15/22 17:15> Total Critical Care Time: 45 <Elsa Pemberton MD - Last Filed: 05/15/22 17:15> Attestation: I spent 45 minutes providing critical care service to the patient, this including time spent at the bedside to evaluate the patient, reassess the patient, monitoring vital signs, review labs, and radiographic studies, counseling the patient/family, discussing the case with consultants, disposition the patient. <Elsa Pemberton MD - Last Filed: 05/15/22 17:15> Discharge Plan Discharge Clinical Impression: Delirium due to general medical condition, Acute UTI, SIRS (systemic inflammatory response syndrome), New onset seizure <CHARLINE Alanis - Last Filed: 05/15/22 11:51> Patient Disposition: Admitted As Inpatient <CHARLINE Alanis - Last Filed: 05/15/22 11:51>
[2022-05-15 12:06] LABS: MANUAL DIFF FLAG NO
[2022-05-15 12:14] LABS: INTERNATIONAL NORM RATIO 0.9 (0.9-1.1); Prothrombin Time 10.4 SEC (10.0-13.1)
[2022-05-15 12:16] LABS: Basophils Percent Auto 0.2 % (0-2); Eosinophils Absolute Auto 0.2 X10*3/uL (0.0-0.4); Eosinophils Percent Auto 1.2 % (0-4); Hematocrit 49.8 % (37.0-47.0); Hemoglobin 17.1 g/dl (12.0-16.0); Imm Gran Abs Auto 0.12 X10*3/uL (0.00-0.03); Imm Gran Pct Auto 0.7 % (0.0-0.4); Lymphocytes Absolute Auto 1.7 X10*3/uL (1.2-4.9); Lymphocytes Percent Auto 10.4 % (20-40); Mean Corpuscular HGB Conc 34.3 g/dl (31.0-35.0); Mean Corpuscular Hemoglobin 30.2 pg (27.0-33.0); Mean Corpuscular Volume 87.8 fL (80.0-98.0); Mean Platelet Volume 9.7 fL (9.4-12.3); Monocytes Absolute Auto 1.1 X10*3/uL (0.1-1.2); Monocytes Percent Auto 6.6 % (2-11); Neutrophils Absolute Auto 13.2 x10*3/uL (2.0-8.3); Neutrophils Percent Auto 80.9 % (45-73); Platelet Count 201 X10*3/uL (160-400); Red Blood Count 5.67 X10*6/uL (4.20-5.50); Red Cell Distribution Width 13.3 % (11.0-16.0); White Blood Count 16.3 X10*3/uL (4.8-10.8)
[2022-05-15 12:24] LABS: COVID-19 Test Negative (Negative); IDNOW Serial# 16C4AD1C
[2022-05-15 12:28] LABS: Partial Thromboplastin Time 21.3 SEC (26.0-36.4)
[2022-05-15 12:29] LABS: Troponin-I High Sensitivity 29.2 ng/L (<3.5-17.0)
[2022-05-15 13:00] LABS: Alanine Aminotransferase 45 U/L (0-31); Albumin Level 4.2 g/dL (3.5-5.0); Alkaline Phosphatase 59 U/L (39-117); Anion Gap 18 (12-20); Aspartate Amino Transferase 27 U/L (5-31); Bilirubin Total 1.3 mg/dL (0.0-1.0); Blood Urea Nitrogen 34 mg/dL (9-16); Calcium 10.5 mg/dL (8.4-10.2); Carbon Dioxide 24 mmol/L (22-29); Chloride 98 mmol/L (96-108); Creatinine Clr Calc Pharmacy 38.3; Estimated Glomerular Filt Rate 50; Glucose Random 89 mg/dL (60-115); Magnesium 2.2 mg/dL (1.6-2.6); Potassium 3.8 mmol/L (3.3-5.1); Sodium 136 mmol/L (135-145); Total Protein 7.3 g/dL (6.5-8.0)
[2022-05-15] MEDS: 0.9 % Sodium Chloride 1,000 ML 999 ML IV (13:39)
[2022-05-15 13:48] LABS: Appearance Urine Clear; Color Urine Yellow; Glucose Urine UA Negative (Negative); Leukocyte Esterase Urine Small (1+) (Negative); Nitrite Urine Negative (Negative); PH 6.5 (5.0-9.0); UMIC TRIGGER UACC YES; Urine Blood Negative (Negative); Urine Ketones Negative (Negative); Urine Protein 100 (2+) mg/dL (Neg-Trace)
[2022-05-15 13:54] LABS: Bacteria Urine None Seen (None Seen); Hyaline Casts Urine 0-2 /LPF (0-2); RBC Urine 0-2 /HPF (0-2); Squamous Epithelial Cell Urine 0-2 /HPF (0-2); UACC Culture Trigger YES
[2022-05-15 13:59] VITALS: BP 177/79; PULSE 87; RESP 16; TEMP 36.8; O2SAT 97
[2022-05-15] MEDS: cefTRIAXone sodium 1 GM in 0.9 % Sodium Chloride 50 ML IV (14:02)
[2022-05-15 14:10] LABS: Troponin-I High Sensitivity 30.1 ng/L (<3.5-17.0)
--- NOTE | 2022-05-15 14:19 | ECG_ITS ---
Test Reason : SEIZURE Blood Pressure : / mmHG Vent. Rate : 152 BPM Atrial Rate : 000 BPM P-R Int : 000 ms QRS Dur : 080 ms QT Int : 296 ms P-R-T Axes : 000 024 174 degrees QTc Int : 470 ms Atrial fibrillation with rapid ventricular response Cannot rule out Inferior infarct (cited on or before 16-NOV-2009) Anterior infarct , age undetermined Marked ST abnormality, possible lateral subendocardial injury Abnormal ECG When compared with ECG of 15-MAY-2022 12:43, Significant changes have occurred Referred By: Elsa Pemberton Electronically Signed By:ERMA DEMPSEY
[2022-05-15 14:38] LABS: B Type Natriuretic Peptide 80 pg/mL (<100)
--- NOTE | 2022-05-15 15:00 | PC.NURSE ---
PATIENTS SON IS UNHAPPY WITH CRISIS PT SCREAMING IN [address] BED
--- NOTE | 2022-05-15 15:11 | PM.IMHP ---
History of Present Illness Date of Service: 05/15/22 Attending physician on admission: Landy Carver Chief Complaint: Confusion This is an 86-year-old female with a past medical history as noted below who presented to the emergency department accompanied by her son due to confusion ongoing for the past 3 days. At current time, patient is a limited/poor historian secondary to mentation however she is alert. Patient's son is at bedside who reports for the past 3 days she has been laughing inappropriately, she has not been able to answer questions as quickly as she normally does and/or hold a conversation with family members. She lives at home with her other son and she is mainly independent and is fairly sharp with her replies. Son also reports that patient has been on high-dose steroids ongoing for the past few days for a muscular issue . In ED shortly after this providers original assessment, patient had a witnessed tonic clonic seizure that broke on its own and then was also noted to be in Afib RVR. Initial laboratory data revealed leukocytosis of 16.3, Hgb & Hct 17.1/29.8, 29.2 with a repeat of 30.1 with no delta, urinalysis concerning for infection. Lactic acid pending at time of this dictation, blood cultures have been obtained. Chest x-ray as well CT of the brain were performed which were negative for acute findings. In the emergency department the patient received IV ceftriaxone, 20 mg IVP cardizem. The decision was made to admit patient for medical management. Review of Systems Review of Systems: A full 12 point review of systems have been performed and are negative if not noted in HPI. [facility] Medical History (Updated 05/15/22 @ 15:24 by FRANSICO Sanchez) CAD (coronary artery disease) Change in mole Claudication of left lower extremity CVA (cerebral vascular accident) Dry eye High cholesterol HTN (hypertension) Leg cramps Nocturia Peripheral neuropathy Post-nasal drip Functional capacity: independent ambulation Patient : No Family History Father No problems noted. Mother No problems noted. Surgical History History of CEA (carotid endarterectomy) Hx of CABG Social History Patient Tobacco Use Status: Never used Tobacco Advance Directives: No Patient : No Meds Allergies Allergy/AdvReac Type Severity Reaction Status Date / Time Ohpovor-RXN-CrL Reductase AdvReac Unknown LEG PAIN Verified 02/06/22 09:41 Inhibitor [[id number]-MYS REDUCTASE INHIBITOR] Active Medications: Current Medications Ceftriaxone Sodium 1 gm/ (Sodium Chloride) 50 mls @ 100 mls/hr IV Q24H LLUVIA Last Admin: 05/15/22 14:53 Dose: Not Given Pharmacy Consult (Consult Rx Perform Med Rec) 1 each MISCELLANE ONCE PRN PRN Reason: Consult order Home Medications Medication Instructions Recorded Confirmed Last Taken Type atorvastatin 10 mg tablet mg PO 10/09/21 01/24/22 History isosorbide mononitrate 60 mg 60 mg PO DAILY 10/09/21 05/15/22 01/24/22 History tablet,extended release 24 hr losartan 50 mg tablet 50 mg PO DAILY 10/09/21 05/15/22 01/24/22 History metoprolol tartrate 50 mg tablet 50 mg PO BID 10/09/21 05/15/22 01/24/22 History omeprazole 40 mg capsule,delayed 40 mg PO DAILY@0630 10/09/21 05/15/22 01/24/22 History release aspirin 81 mg tablet,delayed 81 mg PO DAILY 12/19/21 05/15/22 01/24/22 History release amlodipine 10 mg tablet 1 tab PO DAILY 05/15/22 05/15/22 Unknown History ondansetron 4 mg disintegrating 4 mg PO Q8H PRN Nausea 05/15/22 05/15/22 Unknown History tablet prednisone 50 mg tablet 50 mg PO DAILY 05/15/22 05/15/22 Unknown History Physical Exam Vital Signs and Narrative: Vital Signs: Last Vital Signs Temp 98.2 F 05/15/22 13:59 Pulse 87 05/15/22 13:59 Resp 16 05/15/22 13:59 BP 177/79 H 05/15/22 13:59 Pulse Ox 97 05/15/22 13:59 O2 Del Method 05/15/22 13:59 BMI result Body Mass Index 29.2 General: Alert, answers questions however not appropriately, son is at bedside who assist Skin: Warm, well perfused, no obvious open wound/sores Cardiovascular: Irregularly irregular, no JVD , no murmurs, gallops or clicks Respiratory: Lungs CTAB. Abdomen: Rounded, non-tender, bowel sounds present throughout all quadrants. Extremities: No pedal edema noted, no erythema, tenderness noted bilateral lower extremities. Neuro: Alert, disoriented to situation/ place Psych:Inappropriate affect noted, no agitation/restlessness Results Labs CBC and Chem 7: 05/15/22 12:00 05/15/22 12:00 Labs: Laboratory Results - last 24 hr 05/15/22 05/15/22 05/15/22 12:00 12:00 12:00 MCV 87.8 MCH 30.2 MCHC 34.3 RDW 13.3 Plt Count 201 MPV 9.7 Immature Gran % (Auto) 0.7 H Neut % (Auto) 80.9 H Lymph % (Auto) 10.4 L [place] % (Auto) 6.6 Eos % (Auto) 1.2 Baso % (Auto) 0.2 Lymph # (Auto) 1.7 [place] # (Auto) 1.1 Eos # (Auto) 0.2 Baso # (Auto) 0.0 Abs Immat Gran (auto) 0.12 H Absolute Neuts (auto) 13.2 H Absolute Nucleated RBC 0.000 Nucleated RBC % (auto) 0.0 PT 10.4 INR 0.9 APTT 21.3 L Anion Gap 18 Estim Creat Clear Calc 38.3 Estimated GFR 50 Random Glucose 89 Calcium 10.5 H D Magnesium 2.2 Total Bilirubin 1.3 H AST 27 ALT 45 H Alkaline Phosphatase 59 Troponin I High Sens B-Natriuretic Peptide Total Protein 7.3 Albumin 4.2 Urine Color Urine Appearance Urine pH Ur Specific [place] Urine Protein Urine Glucose (UA) Urine Ketones Urine Blood Urine Nitrite Ur Leukocyte Esterase Urine RBC Urine WBC Ur Squamous Epith Cells Urine Bacteria Hyaline Casts COVID-19 (LINDA) COVID-19 Clin Com 05/15/22 05/15/22 05/15/22 12:00 12:00 12:01 MCV MCH MCHC RDW Plt Count MPV Immature Gran % (Auto) Neut % (Auto) Lymph % (Auto) [place] % (Auto) Eos % (Auto) Baso % (Auto) Lymph # (Auto) [place] # (Auto) Eos # (Auto) Baso # (Auto) Abs Immat Gran (auto) Absolute Neuts (auto) Absolute Nucleated RBC Nucleated RBC % (auto) PT INR APTT Cancelled Anion Gap Estim Creat Clear Calc Estimated GFR Random Glucose Calcium Magnesium Total Bilirubin AST ALT Alkaline Phosphatase Troponin I High Sens 29.2 H D B-Natriuretic Peptide Total Protein Albumin Urine Color Urine Appearance Urine pH Ur Specific [place] Urine Protein Urine Glucose (UA) Urine Ketones Urine Blood Urine Nitrite Ur Leukocyte Esterase Urine RBC Urine WBC Ur Squamous Epith Cells Urine Bacteria Hyaline Casts COVID-19 (LINDA) Negative COVID-19 Clin Com See Note 05/15/22 05/15/22 05/15/22 13:21 13:37 13:37 MCV MCH MCHC RDW Plt Count MPV Immature Gran % (Auto) Neut % (Auto) Lymph % (Auto) [place] % (Auto) Eos % (Auto) Baso % (Auto) Lymph # (Auto) [place] # (Auto) Eos # (Auto) Baso # (Auto) Abs Immat Gran (auto) Absolute Neuts (auto) Absolute Nucleated RBC Nucleated RBC % (auto) PT INR APTT Anion Gap Estim Creat Clear Calc Estimated GFR Random Glucose Calcium Magnesium Total Bilirubin AST ALT Alkaline Phosphatase Troponin I High Sens 30.1 H B-Natriuretic Peptide 80 Total Protein Albumin Urine Color Yellow Urine Appearance Clear Urine pH 6.5 Ur Specific [place] 1.010 Urine Protein 100 (2+) H Urine Glucose (UA) Negative Urine Ketones Negative Urine Blood Negative Urine Nitrite Negative Ur Leukocyte Esterase Small (1+) H Urine RBC 0-2 Urine WBC 11-20 H Ur Squamous Epith Cells 0-2 Urine Bacteria None Seen Hyaline Casts 0-2 COVID-19 (LINDA) COVID-19 Clin Com Imaging Radiologist's Impressions: Impressions Head CT 05/15/22 12:12 IMPRESSION: There is a chronic left striatocapsular infarct and numerous chronic small vessel ischemic changes primarily involving the periventricular white matter. No evidence of acute territorial infarct or hemorrhage. Chest X-Ray 05/15/22 12:22 IMPRESSION: No acute cardiopulmonary process. Assessment and Plan (1) Acute UTI: Status: Acute (2) Sepsis: Status: Acute (3) Acute metabolic encephalopathy: Status: Acute (4) Bilateral carotid artery stenosis: Status: Acute (5) PAD (peripheral artery disease): Status: Acute (6) History of CVA (cerebrovascular accident): Status: Acute (7) HTN (hypertension): Status: Acute Plan Acute hypertensive metabolic ecephalopathy Hypertensive emergency New Onset Seizure - 86 year old female admitted with new onset seizure likely secondary to hypertensive emergency, also noted to be in new onset AFib RVR with positive urinalysis meeting sepsis criteria - Patient had a generalized tonic-clonic seizure which was witnessed the emergency department. Seizure broke without intervention. - Start: Keppra 500 mg IV b.i.d., Versed p.r.n.q15min seizure activity, seizure precautions. - Blood pressure as high as 210/96 in ED. will slowly lower blood pressure to avoid worsening encephalopathy. - Family unsure and patient took Lopressor /amlodipine -these have been given. - Seizure and aspiration in place - EEG, MRI brain w/o ordered. - Neuro consult placed, recommendations appreciated New Onset Atrial Fibrillation -Patient went into new onet Afib RVR in ED, likely related to hypertensive emergency -Received IV Cardizem in ED and Cardizem gtt has been ordered -Echo ordered, cards consult -CHADs-VASc 5 -Will await cardiology recommendation regarding anticoagulation Sepsis UTI - Patient met sepsis criteria prior to going in to Afib RVR due to leukocytosis, tachycardia, source of infection being UTI. - Urinalysis positive for infection. Await urine and blood cultures. Lactic acid obtained however still pending at time of this dictation. Polymyositis -Recent diagnosis by PCP who started her on prednisone 50 mg daily ongoing for the past 3 weeks. -Random cortisol ordered for a.m. -Patient may need slow wean History of CVA Bilateral carotid artery stenosis - Statin, aspirin, Plavix continued. No deficits from prior CVA per son PAD - As above DVT prophylaxis -Lovenox Patient is a DNR / DNI HCP/person to contact are: 1. Daughter in law, Jaylene Muñoz, 2. Son, Jh Ordonez, Time Spent With Patient Time: Total time managing care of this patient today ____ minutes. Quality Stroke Does the patient have a stroke diagnosis?: No VTE Prior VTE?: No VTE Risk Level:: Medical - moderate - high VTE Device Contraindication: N/A - Device Ordered VTE Drug Contraindication: N/A - Med Ordered
--- NOTE | 2022-05-15 15:26 | PHA.MEDREC ---
Pharmacy Consult ? Medication Reconciliation Pharmacy has completed the medication reconciliation. Son did not know any medications. They brought a list of medications from provider. Contact Dr. Steve Fall to [facility] medications. Dr. Mcelroy reported that patient tolerated atorvastatin but is allergic to other statins. Reported she was recently put on prednisone 50 mg and does not have to be tapered now. He did not know about Plavix or Isosorbide mononitrate. Plavix was prescribed but Dr. orantes post angio and has not reported to stop medication in reports. Contact [facility] to confirm if patient is suppose to be on isosorbide mononitrate since it was recently filled 04/20/22. Left message for MA to call back. Cata Starr, IsaacD
--- NOTE | 2022-05-15 15:34 | PC.NURSE ---
WITNESSED SEIZURE BY THIS RN WHILE PT ON THE COMMODE EYE DEVIATION TO THE LEFT ON RESPONSIVE TO COMMANDS OR SPEECH STIFF EXTREMITIES.
[2022-05-15 15:46] VITALS: BP 185/69; PULSE 138; RESP 20; TEMP 36.7; O2SAT 96
--- NOTE | 2022-05-15 15:51 | MHC.EDTECH ---
PT HAD A SEIZURE ON BED SIDE COMMODE ,PT GOT MOVE TO BED ,CARE GIVEN PT HAD AN EXTRA LG BOWEL MOVEMENT SEIZURE PADS IN PLACE ,EKG DONE,VITAL SIGN TAKEN PT WAS HOOKED UP TO [employer] ,PT SON AND DAUGHTER IN LAW AT BED SIDE .
[2022-05-15] MEDS: LORazepam 2 MG/ML VIAL IVPUSH (16:04)
[2022-05-15] MEDS: dilTIAZem HCL 50 MG/10 ML VIAL 20 MG IVPUSH (16:05)
[2022-05-15 17:12] LABS: Lactic Acid 3.8 mmol/L (0.5-2.0)
[2022-05-15] MEDS: levETIRAcetam in NaCl (iso-os) 500 MG/100 ML PIGGYBACK 400 MG IV (17:25)
[2022-05-15] MEDS: 0.9 % Sodium Chloride Flush 3 ML SYRINGE IVFLUSH ×2 (17:26→20:28)
[2022-05-15 17:31] VITALS: BMI 28.4
[2022-05-15 17:35] VITALS: BP 145/67; PULSE 97; RESP 16; TEMP 36.6; O2SAT 94
[2022-05-15] MEDS: Enoxaparin Sodium 40 MG/0.4 ML SYRINGE SUBCUT (18:37)
[2022-05-15 18:41] LABS: Reflex Lactate? Lactic Acid Added
[2022-05-15 19:23] LABS: ~Lactic Acid-LAB USE ONLY 3.1 mmol/L (0.5-2.0)
[2022-05-15 20:00] VITALS: BP 127/60; PULSE 88; RESP 20; TEMP 36.4; O2SAT 93
[2022-05-15] MEDS: Metoprolol Tartrate 50 MG TABLET PO (20:26)
[2022-05-15] MEDS: Docusate Sodium 100 MG CAPSULE PO (20:27)
[2022-05-15] MEDS: Lactated Ringers 1,000 ML 100 ML IVCONT (20:29)
[2022-05-15 21:02] LABS: Reflex Lactate? 2 Y
[2022-05-15 22:09] LABS: ~Lactic Acid-LAB USE ONLY 2.8 mmol/L (0.5-2.0)
[2022-05-15 23:53] VITALS: BP 200/90; PULSE 87; RESP 18; O2SAT 95
--- NOTE | 2022-05-16 | EEG_ITS ---
This is a 16-channel EEG with an EKG lead. The patient is reported sleeping during the tracing. Background EEG rhythm is low amplitude and mixed theta, beta with no obvious asymmetry or paroxysmal tendency. Photic stimulation and hyperventilation were not performed. Cardiac lead did not reveal any significant abnormality. No sharp wave spikes or paroxysmal tendency noted. IMPRESSION: No significant abnormality noted on this EEG. MD MELISA Iyer/DOE / [id number]
--- NOTE | 2022-05-16 | ECG_ITS ---
Test Reason : ? cva Blood Pressure : / mmHG Vent. Rate : 067 BPM Atrial Rate : 067 BPM P-R Int : 142 ms QRS Dur : 082 ms QT Int : 442 ms P-R-T Axes : 024 017 062 degrees QTc Int : 467 ms Normal sinus rhythm Inferior infarct (cited on or before 16-NOV-2009) Anterior infarct (cited on or before 16-NOV-2009) Abnormal ECG When compared with ECG of 15-MAY-2022 15:35, Sinus rhythm has replaced Atrial fibrillation Vent. rate has decreased BY [address] less depressed in Lateral leads T wave inversion now evident in Anterior leads Referred By: Itz Bernal Electronically Signed By:ERMA DEMPSEY
[2022-05-16] MEDS: hydrALAZINE HCl 20 MG/ML VIAL 5 MG IVPUSH (00:29)
[2022-05-16] MEDS: Acetaminophen Supp 650 MG SUPP.RECT PR ×2 (01:23→07:09)
[2022-05-16 03:23] VITALS: BP 156/70; PULSE 88; RESP 18; TEMP 37.7; O2SAT 93
--- NOTE | 2022-05-16 05:03 | PC.NURSE ---
19:24 Received tiger text from [facility] (LAB) re : pt Merlene Sara critical lab Lactic 3.1 Dr Lutz notified, fluids ordered LR 1 L @100/hr 22:08 Received tiger text from [facility] (LAB) RE: Pt Merlene Sara critical lab Lactic 2.8 Dr Lutz notified. 23:58 BP 200/90 manual pulse 89 temp 97.8 neuro exam normal orientedx3 NSR ; notified Dr Lutz re BP ordered hydralizaine IV push 00:17 BP down to 178/62 patient tremulous rectal temp 100.6 , RR 21 pulse 98 , patient oriented and stated I had a stroke in the past and felt this same way ; notified and noted Pt had head CT @1200 pm since no nuero symptoms not necessary to repeat CT ; tylenol suppository ordered and given. Patient resting with eyes closed NSR and pulse 80.
[2022-05-16] MEDS: Omeprazole 40 MG CAPSULE.DR PO (05:12)
[2022-05-16] MEDS: levETIRAcetam in NaCl (iso-os) 500 MG/100 ML PIGGYBACK 400 MG IV ×2 (05:12→17:12)
--- NOTE | 2022-05-16 07:00 | CA_ITS ---
Transthoracic Echocardiogram Patient (Last, First, Middle): Merlene Ruiz, Gender: Female Date of : 1935 Age: 86 Procedure Date: 05/16/2022 Procedure Type: Transthoracic [place] [facility] [place]: 160.02 cm Weight: 74.84 kg BSA: 1.78 m2 Heart Rate: 67 bpm BP: 185 / 69 mmHg Labor And Delivery Registered Nurse: SB Referring MD: Stella BATEMAN Symptoms: New onset Afib w /RVR Study Quality: Adequate w contrast ECG Rhythm: Sinus Conclusions: - The left ventricular systolic function is normal. The visually estimated ejection fraction is between 65-70%. - There is evidence of regional wall motion abnormalities. - Interatrial shunt cannot be excluded. - There is mild calcification of the aortic valve. - There is mild mitral annular calcification. - There is mild tricuspid valve regurgitation. Findings Procedure Information Contrast agent, definity, is being given per protocol without apparent complications. Left Ventricle Normal left ventricular cavity size. There is severely increased left ventricular wall thickness. The left ventricular systolic function is normal. The visually estimated ejection fraction is between 65-70%. There is evidence of regional wall motion abnormalities. Evidence suggests grade I (mild) diastolic dysfunction. Wall Motion Rest Echo Findings The inferolateral wall is hypokinetic. The basal inferior segment is akinetic. Right Ventricle Normal right ventricular cavity size. There is severely decreased right ventricular systolic function. Atria The left atrium is normal in size. 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 Interatrial shunt cannot be excluded. The right atrium is normal in size. Aortic Valve There is a normal trileaflet aortic valve. There is mild calcification of the aortic valve. There is no aortic valve stenosis. There is trace (trivial) aortic valve regurgitation. Mitral Valve There is mild anterior mitral leaflet thickening. There is mild mitral annular calcification. There is no mitral valve regurgitation. There is no mitral valve stenosis. Pulmonic Valve The pulmonic valve is likely normal. There is trace pulmonic valve regurgitation. Tricuspid Valve Normal tricuspid valve structure. There is mild tricuspid valve regurgitation. There is no evidence of pulmonary hypertension. Great Vessels The aortic annulus, sinuses of valsalva, and asc aorta are normal in size. Venous The inferior vena cava is normal in size and collapses greater than 50% with inspiration. Pericardium/Pleural There is no evidence of pericardial effusion. Prior Study Comparison Changes noted compared to prior study dated: 07/21/2012. See comments on wall motion. Measurements 2D Linear Measurements IVSd: 1.42 0.6-0.9/0.6-1.0 cm LVIDd: 3.71 3.9-5.3/4.2-5.9 cm LVIDd Index: 2.08 2.4-3.2/2.2-3.1 cm/m2 LVIDs: 2.06 2.0-3.6 cm LVPWd: 1.58 0.7-1.1 cm LA Diam: 2.40 2.7-3.8/3.0-4.0 cm LAIDs Index: 1.35 1.5-2.3 cm/m2 LV Mass: 261.09 67-162/88-224 g LV Mass Index: 146.68 43-95/49-115 g/m2 LVOT Diam: 2.00 3.0+(-)1.3 cm 2D Systolic Function EF 4C: 69.60 >55% EF 2C: 82.00 >55% EF BiP: 76.50 >55% Mitral Valve MV Pk E: 0.52 MV PK A: 0.76 MV Decel Time: 220.00 E/A: 0.70 E'Lateral: 4.03 E'Medial: 4.03 E/E' Med: 13.00 E/E' Lat: 13.00 PHT: 64.00 MVA PHT: 3.44 Decel [place]: 2.37 Aortic Valve AoV Pk Paramjit: 1.16 AoV Pk Grad: 5.00 VICKY: 2.20 LVOT LVOT Pk Paramjit: 0.77 LVOT Mn Paramjit: 0.57 LVOT VTI: 0.14 LVOT Pk Grad: 2.00 LVOT Mn Grad: 1.00 LVOT Diam: 2.00 LVOT Area: 3.14 Diastolic Function MV Pk E: 0.52 MV Pk A: 0.76 E/A: 0.70 E'Medial: 4.03 E/E' Med: 13.00 E' Laterial: 4.03 E/E' Lat: 13.00 Right Ventricle TAPSE (mm): 8.00 Tricuspid Valve TR Pk Paramjit: 2.42 TR Pk Grad: 23.00 RA Press: 3.00 RVSP: 26.00 Great Vessels Aorta Sinus of Valsalva: 3.10 2.0-3.[address] [place]: 2.67 1.7-3.4 cm Ao Asc: 2.90 2.1-3.4 cm Pulmonary Valve PV Pk Paramjit: 0.79 Peak PV Grad: 2.00 Updated in Other Vendor System with Status of Final Konrad Johnson MD electronically signed on 05/17/2022 9:22:08 AM with status of Final
[2022-05-16 07:22] LABS: Hematocrit 43.3 % (37.0-47.0); Hemoglobin 14.7 g/dl (12.0-16.0); Mean Corpuscular HGB Conc 33.9 g/dl (31.0-35.0); Mean Corpuscular Hemoglobin 30.2 pg (27.0-33.0); Mean Corpuscular Volume 89.1 fL (80.0-98.0); Mean Platelet Volume 10.2 fL (9.4-12.3); Platelet Count 149 X10*3/uL (160-400); Red Blood Count 4.86 X10*6/uL (4.20-5.50); Red Cell Distribution Width 13.4 % (11.0-16.0); White Blood Count 9.4 X10*3/uL (4.8-10.8)
[2022-05-16 07:28] LABS: Anion Gap 15 (12-20); Blood Urea Nitrogen 27 mg/dL (9-16); Carbon Dioxide 25 mmol/L (22-29); Chloride 100 mmol/L (96-108); Creatinine Clr Calc Pharmacy 45.7; Estimated Glomerular Filt Rate > 60; Glucose Random 89 mg/dL (60-115); Potassium 3.6 mmol/L (3.3-5.1); Sodium 136 mmol/L (135-145)
[2022-05-16 07:38] LABS: Calcium 8.6 mg/dL (8.4-10.2)
[2022-05-16] MEDS: Lactated Ringers 1,000 ML 100 ML IVCONT (07:41)
[2022-05-16 07:50] LABS: Cortisol Random 15.2 ug/dL
[2022-05-16] MEDS: predniSONE 20 MG TABLET 50 MG PO (08:21)
[2022-05-16] MEDS: Aspirin Enteric Coated 81 MG TABLET.DR PO (08:23)
[2022-05-16] MEDS: Isosorbide Mononitrate 60 MG TAB.ER.24H PO (08:23)
[2022-05-16] MEDS: Metoprolol Tartrate 50 MG TABLET PO (08:23)
[2022-05-16] MEDS: Losartan Potassium 50 MG TABLET PO (08:23)
[2022-05-16] MEDS: Atorvastatin Calcium 10 MG TABLET PO (08:23)
[2022-05-16] MEDS: Clopidogrel Bisulfate 75 MG TABLET PO (08:23)
[2022-05-16] MEDS: amLODIPine Besylate 10 MG TABLET PO (08:23)
[2022-05-16] MEDS: Docusate Sodium 100 MG CAPSULE PO ×2 (08:24→20:46)
[2022-05-16 08:34] VITALS: BP 130/58; PULSE 77
--- NOTE | 2022-05-16 10:08 | MHC.CM.PN ---
spoke with pts july lowe [phone] who works here she explains that pt lives with a son they are requesting a vna when dcd pt is not covid vax has a ride home
[2022-05-16 11:22] VITALS: TEMP 37.4
[2022-05-16 11:51] VITALS: BP 109/54; PULSE 65; RESP 18; O2SAT 93
--- NOTE | 2022-05-16 12:59 | P.CNNE_ITS ---
History of Present Illness Data of Consult Service Date: 05/16/22 Primary Care Provider: Steve Mcelroy MD HPI Reason for consult: Seizure 86 years old woman with underlying history of hypertension, which according to her son sometime was not fully controlled, came to hospital and was noted to have a generalized seizure. She was not known to have a seizure. Now she was back to baseline and denied any problems. She has been living at home. She did not drive. Review of Systems Review of Systems: No history of alcohol use or recent alcohol use. ON LICENSE OF [facility] Past Medical History Medical History (Updated 05/16/22 @ 13:01 by Bushra Islas MD) CAD (coronary artery disease) Change in mole Claudication of left lower extremity CVA (cerebral vascular accident) Dry eye High cholesterol HTN (hypertension) Leg cramps Nocturia Peripheral neuropathy Post-nasal drip Functional capacity: independent ambulation Family History Family History Father No problems noted. Mother No problems noted. Surgical History Surgical History History of CEA (carotid endarterectomy) Hx of CABG Social History Social History Household Members: Family Housing: House Do you presently have visiting nurse or other home services: No Patient Tobacco Use Status: Never used Tobacco Use of substances other than those prescribed or required for medical reasons: No Have you been hit, kicked, punched, or otherwise hurt by someone within the past year? If so, by whom?: No Do you feel safe in your current relationship?: No Current Relationship Is there a partner from a previous relationship who is making you feel unsafe now?: No Are you made to feel afraid or neglected: No Advance Directives: No Do you have thoughts of harming others: None Do you have a plan to hurt others: No Plan Recently lost weight without trying: Unsure How much weight loss: Unsure Nutrition Risks: No Nutritional Risk Patient : No service: No Meds Allergies Allergy/AdvReac Type Severity Reaction Status Date / Time [id number] Reductase AdvReac Unknown LEG PAIN Verified 02/06/22 09:41 Inhibitor [[id number] REDUCTASE INHIBITOR] Active Medications: Current Medications Acetaminophen (Acetaminophen Supp 650 Mg Supp.Rect) 650 mg [place] Q6H PRN PRN Reason: Pain, Mild (Pain Scale 1-3) Last Admin: 05/16/22 07:09 Dose: 650 mg Amlodipine Besylate (Amlodipine Besylate 10 Mg Tablet) 10 mg PO DAILY [facility]; Protocol Last Admin: 05/16/22 08:23 Dose: 10 mg Aspirin (Aspirin Enteric Coated 81 Mg Tablet.Dr) 81 mg PO DAILY [facility] Last Admin: 05/16/22 08:23 Dose: 81 mg Atorvastatin Calcium (Atorvastatin Calcium 10 Mg Tablet) 10 mg PO DAILY [facility] Last Admin: 05/16/22 08:23 Dose: 10 mg Clopidogrel Bisulfate (Clopidogrel Bisulfate 75 Mg Tablet) 75 mg PO DAILY [facility] Last Admin: 05/16/22 08:23 Dose: 75 mg Docusate Sodium (Docusate Sodium 100 Mg Capsule) 100 mg PO BID [facility] Last Admin: 05/16/22 08:24 Dose: 100 mg Enoxaparin Sodium (Enoxaparin Sodium 40 Mg/0.4 Ml Syringe) 40 mg SUBCUT Q24H [facility] Last Admin: 05/15/22 18:37 Dose: 40 mg Ceftriaxone Sodium 1 gm/ (Sodium Chloride) 50 mls @ 100 mls/hr IV Q24H [facility] Last Admin: 05/15/22 14:53 Dose: Not Given Levetiracetam (Keppra) 500 mg in 100 mls @ 400 mls/hr IV Q12H [facility] Last Infusion: 05/16/22 06:45 Dose: Infused Lactated Ringer's (Lr) 1,000 mls @ 100 mls/hr IVCONT .Q10H [facility] Last Admin: 05/16/22 07:41 Dose: 100 mls/hr Isosorbide Mononitrate (Isosorbide Mononitrate 60 Mg Tab.Er.24h) 60 mg PO DAILY [facility]; Protocol Last Admin: 05/16/22 08:23 Dose: 60 mg Losartan Potassium (Losartan Potassium 50 Mg Tablet) 50 mg PO DAILY [facility]; Protocol Last Admin: 05/16/22 08:23 Dose: 50 mg Metoprolol Tartrate (Metoprolol Tartrate 50 Mg Tablet) 50 mg PO BID [facility]; Protocol Last Admin: 05/16/22 08:23 Dose: 50 mg Midazolam HCl (Midazolam Hcl/Pf 2 Mg/2 Ml Vial) 1 mg IVPUSH Q15M PRN PRN Reason: Seizures Omeprazole (Omeprazole 40 Mg Capsule.Dr) 40 mg PO DAILY@0630 [facility] Last Admin: 05/16/22 05:12 Dose: 40 mg Ondansetron HCl (Ondansetron Hcl 4 Mg/2 Ml Vial) 4 mg IVPUSH Q8H PRN PRN Reason: Nausea and Vomiting Pharmacy Consult (Consult Rx Perform Med Rec) 1 each MISCELLANE ONCE PRN PRN Reason: Consult order Prednisone (Prednisone 20 Mg Tablet) 50 mg PO DAILY [facility] Last Admin: 05/16/22 08:21 Dose: 50 mg Senna (Sennosides 8.6 Mg Tablet) 17.2 mg PO BEDTIME PRN PRN Reason: Constipation Sodium Chloride (0.9 % Sodium Chloride Flush 3 Ml Syringe) 3 ml IVFLUSH QSHIFT [facility] Last Admin: 05/16/22 11:23 Dose: Not Given Home Medications Medication Instructions Recorded Confirmed Last Taken Type atorvastatin 10 mg tablet 10 mg PO DAILY 10/09/21 05/15/22 01/24/22 History isosorbide mononitrate 60 mg 60 mg PO DAILY 10/09/21 05/15/22 01/24/22 History tablet,extended release 24 hr losartan 50 mg tablet 50 mg PO DAILY 10/09/21 05/15/22 01/24/22 History metoprolol tartrate 50 mg tablet 50 mg PO BID 10/09/21 05/15/22 01/24/22 History omeprazole 40 mg capsule,delayed 40 mg PO DAILY@0630 10/09/21 05/15/22 01/24/22 History release aspirin 81 mg tablet,delayed 81 mg PO DAILY 12/19/21 05/15/22 01/24/22 History release amlodipine 10 mg tablet 1 tab PO DAILY 05/15/22 05/15/22 Unknown History ondansetron 4 mg disintegrating 4 mg PO Q8H PRN Nausea 05/15/22 05/15/22 Unknown History tablet prednisone 50 mg tablet 50 mg PO DAILY 05/15/22 05/15/22 Unknown History Physical Exam Vital Signs: Vital Signs: Last Vital Signs Temp 99.3 F 05/16/22 11:22 Pulse 65 05/16/22 11:51 Resp 18 05/16/22 11:51 BP 109/54 L 05/16/22 11:51 Pulse Ox 93 05/16/22 11:51 O2 Del Method 05/16/22 11:51 BMI result Body Mass Index 28.4 Neuro: Other: She is alert and awake with normal spontaneity of speech fluency comprehension and somewhat flat affect. There is mild left-sided facial flatness. There is mild right-sided ptosis. Extraocular muscles are intact. Visual ahn are full. There is no obvious focal arm or leg weakness. Plantars are flexor. Results Labs CBC & Chem 7: 05/16/22 06:47 05/16/22 06:47 Labs: Short CBC 05/16/22 Range/Units 06:47 WBC 9.4 (4.8-10.8) X10*3/uL Hgb 14.7 (12.0-16.0) g/dl Hct 43.3 (37.0-47.0) % Plt Count 149 L D (160-400) X10*3/uL BMP 05/15/22 05/16/22 12:00 06:47 Sodium 136 136 Potassium 3.8 D 3.6 Chloride 98 100 Carbon Dioxide 24 25 BUN 34 H 27 H Creatinine 1.04 0.86 Calcium 10.5 H D 8.6 D Liver Function 05/15/22 Range/Units 12:00 Total Bilirubin 1.3 H (0.0-1.0) mg/dL AST 27 (5-31) U/L ALT 45 H (0-31) U/L Alkaline Phosphatase 59 (39-117) U/L Albumin 4.2 (3.5-5.0) g/dL Urine 05/15/22 Range/Units 13:21 Urine Color Yellow Urine Appearance Clear Urine pH 6.5 (5.0-9.0) Ur Specific [place] 1.010 (1.005-1.025) Urine Protein 100 (2+) H (Neg-Trace) mg/dL Urine Glucose (UA) Negative (Negative) mg/dL MRI of brain revealed extensive chronic microvascular type of lesions in brainstem and cerebral cortex. Moderate diffuse cerebral atrophy was also noted. There was no obvious acute lesion. Microbiology Microbiology Results: Microbiology 05/15/22 00:00 Urine clean catch - Urine packer top Urine Culture - Final No growth. Assessment and Plan (1) Seizure: Status: Acute 86 years old woman who has underlying extensive vascular disease probably related to chronic hypertension and significant atrophy. She was in hospital for generalized weakness and probably infection but also had a seizure. Seizure might not be related to infection as she did not have any overt signs of meningitis and her mental status was probably back to baseline not suggestive of encephalitis. For now my recommendation is to investigate and treat systemic infection and add levetiracetam 250 mg twice a day for seizure control. As far as brain condition or microvascular ischemic disease is concerned, it could result in significant cognitive did dysfunction or dementia. Blood pressure control, anti-platelet agent and statin are recommended Time Spent With Patient Time: Total time managing care of this patient today ____ minutes. Procedures Date of Service Date of Service: 05/16/22
[2022-05-16] MEDS: cefTRIAXone sodium 1 GM in 0.9 % Sodium Chloride 50 ML IV (15:51)
[2022-05-16 16:00] VITALS: BP 135/88; PULSE 80; RESP 20; TEMP 36.6; O2SAT 94
--- NOTE | 2022-05-16 16:04 | HO.PM.IMPN ---
Subjective Subjective Date of Service: 05/17/22 Interval History: Encephalopathy, seizure Review of Systems Mental status seems to be improved, still seems generalized weak Denies any chest pain or shortness of breath or abdominal pain or urinary complaints. Physical Exam Vital Signs: Vital Signs: Last Vital Signs Temp 99.3 F 05/16/22 11:22 Pulse 65 05/16/22 11:51 Resp 18 05/16/22 11:51 BP 109/54 L 05/16/22 11:51 Pulse Ox 93 05/16/22 11:51 O2 Del Method 05/16/22 11:51 BMI result Body Mass Index 28.4 Appearance: Alert.? Oriented X3.? Generalized weak. ? cvs: rrr, [id number] , no murmur res: clear to auscultation ,no rhonchii or wheezing abd: no rebound or guarding ,nt, bs present. ext pulses present , no cyanosis . neuro: axo3 , moves all extremities Objective Data Active Medications Acetaminophen (Acetaminophen Supp 650 Mg Supp.Rect) 650 mg [place] Q6H PRN PRN Reason: Pain, Mild (Pain Scale 1-3) Last Admin: 05/16/22 07:09 Dose: 650 mg Documented By: JHONNY Amlodipine Besylate (Amlodipine Besylate 10 Mg Tablet) 10 mg PO DAILY [facility]; Protocol Last Admin: 05/16/22 08:23 Dose: 10 mg Documented By: ISABEL Aspirin (Aspirin Enteric Coated 81 Mg Tablet.) 81 mg PO DAILY [facility] Last Admin: 05/16/22 08:23 Dose: 81 mg Documented By: ISABEL Atorvastatin Calcium (Atorvastatin Calcium 10 Mg Tablet) 10 mg PO DAILY [facility] Last Admin: 05/16/22 08:23 Dose: 10 mg Documented By: ISABEL Clopidogrel Bisulfate (Clopidogrel Bisulfate 75 Mg Tablet) 75 mg PO DAILY [facility] Last Admin: 05/16/22 08:23 Dose: 75 mg Documented By: ISABEL Docusate Sodium (Docusate Sodium 100 Mg Capsule) 100 mg PO BID [facility] Last Admin: 05/16/22 08:24 Dose: 100 mg Documented By: ISABEL Enoxaparin Sodium (Enoxaparin Sodium 40 Mg/0.4 Ml Syringe) 40 mg SUBCUT Q24H [facility] Last Admin: 05/15/22 18:37 Dose: 40 mg Documented By: SONJA Ceftriaxone Sodium 1 gm/ (Sodium Chloride) 50 mls @ 100 mls/hr IV Q24H [facility] Last Admin: 05/16/22 15:51 Dose: 100 mls/hr Documented By: ISABEL Levetiracetam (Keppra) 500 mg in 100 mls @ 400 mls/hr IV Q12H [facility] Last Infusion: 05/16/22 06:45 Dose: 0 mls/hr Documented By: JHONNY Isosorbide Mononitrate (Isosorbide Mononitrate 60 Mg Tab.Er.24h) 60 mg PO DAILY [facility]; Protocol Last Admin: 05/16/22 08:23 Dose: 60 mg Documented By: ISABEL Losartan Potassium (Losartan Potassium 50 Mg Tablet) 50 mg PO DAILY [facility]; Protocol Last Admin: 05/16/22 08:23 Dose: 50 mg Documented By: ISABEL Metoprolol Tartrate (Metoprolol Tartrate 50 Mg Tablet) 50 mg PO BID [facility]; Protocol Last Admin: 05/16/22 08:23 Dose: 50 mg Documented By: ISABEL Midazolam HCl (Midazolam Hcl/Pf 2 Mg/2 Ml Vial) 1 mg IVPUSH Q15M PRN PRN Reason: Seizures Omeprazole (Omeprazole 40 Mg Capsule.Dr) 40 mg PO DAILY@0630 [facility] Last Admin: 05/16/22 05:12 Dose: 40 mg Documented By: JHONNY Ondansetron HCl (Ondansetron Hcl 4 Mg/2 Ml Vial) 4 mg IVPUSH Q8H PRN PRN Reason: Nausea and Vomiting Pharmacy Consult (Consult Rx Perform Med Rec) 1 each MISCELLANE ONCE PRN PRN Reason: Consult order Prednisone (Prednisone 20 Mg Tablet) 50 mg PO DAILY [facility] Last Admin: 05/16/22 08:21 Dose: 50 mg Documented By: ISABEL Senna (Sennosides 8.6 Mg Tablet) 17.2 mg PO BEDTIME PRN PRN Reason: Constipation Sodium Chloride (0.9 % Sodium Chloride Flush 3 Ml Syringe) 3 ml IVFLUSH QSHIFT [facility] Last Admin: 05/16/22 11:23 Dose: Not Given Documented By: ISABEL Non-Admin Reason: Previously Administered Labs CBC & Chem 7: 12/14/22 06:47 05/16/22 06:47 Labs: Laboratory Results - last 24 hr 05/15/22 05/15/22 05/15/22 16:39 18:54 21:51 MCV MCH MCHC RDW Plt Count MPV Absolute Nucleated RBC Nucleated RBC % (auto) Anion Gap Estim Creat Clear Calc Estimated GFR Random Glucose Lactic Acid 3.8 H* Lactic Acid F/U @ 2Hr 3.1 H* Lactic Acid F/U @ 4Hr 2.8 H* Calcium Random Cortisol 05/16/22 05/16/22 05/16/22 06:47 06:47 06:47 MCV 89.1 MCH 30.2 MCHC 33.9 RDW 13.4 Plt Count 149 L D MPV 10.2 Absolute Nucleated RBC 0.000 Nucleated RBC % (auto) 0.0 Anion Gap 15 Estim Creat Clear Calc 45.7 Estimated GFR > 60 Random Glucose 89 Lactic Acid Lactic Acid F/U @ 2Hr Lactic Acid F/U @ 4Hr Calcium 8.6 D Random Cortisol 15.2 Microbiology Microbiology Results: Microbiology 05/15/22 13:37 Blood Culture - Preliminary Blood - Venous No growth after 24 hours. 05/15/22 13:37 Blood Culture - Preliminary Blood - Venous No growth after 24 hours. 05/15/22 00:00 Urine Culture - Final Urine clean catch - Urine packer top No growth. Assessment and Plan (1) Seizure: Status: Acute (2) HTN (hypertension): Status: Acute (3) Acute metabolic encephalopathy: Status: Acute (4) Sepsis: Status: Acute (5) Acute UTI: Status: Acute (6) Afib: Status: Acute Plan New Onset Seizure - 86 year old female admitted with new onset seizure likely secondary to hypertensive emergency, also noted to be in new onset AFib RVR with positive urinalysis meeting sepsis criteria - Patient had a generalized tonic-clonic seizure which was witnessed the emergency department.? Seizure broke without intervention.? -patient was given IV Keppra, seen by Neurology MRI seems to fine, EEG pending, Switch Keppra to 250 b.i.d.. Neurology follow-up. New Onset Atrial Fibrillation Back to sinus rhythm, continue metoprolol and home medications -Will await cardiology recommendation regarding anticoagulation Sepsis/UTI ?- Patient met sepsis criteria prior to going in to Afib RVR due to leukocytosis, tachycardia, source of infection being UTI.? -? Urinalysis positive for infection. Await urine and blood cultures.? Lactic acid obtained however still pending at time of this dictation. Polymyositis -Recent diagnosis by PCP who started her on prednisone 50 mg daily ongoing for the past 3 weeks. -Random cortisol ordered for a.m. -Patient may need slow wean History of CVA Bilateral carotid artery stenosis - Statin, aspirin, Plavix continued.? No deficits from prior CVA per son PAD - As above dvt prophylax : d/c lovenox Time Spent With Patient Time: Total time managing care of this patient today ____ minutes. Quality Stroke Does the patient have a stroke diagnosis?: No VTE Prior VTE?: No VTE Risk Level:: Medical - moderate - high VTE Device Contraindication: N/A - Device Ordered VTE Drug Contraindication: N/A - Med Ordered
--- NOTE | 2022-05-16 16:49 | PM.CNCAR ---
History of Present Illness History of Present Illness Date of Service: 05/16/22 Chief complaint: Acute metabolic encephalopathy/UTI/Sepsis Narrative: This is a cardiology consultation regarding atrial fibrillation. Patient admitted to the hospital mainly for confusion. In the ER apparently had a witnessed tonic-clonic seizure. In that setting, also had atrial fibrillation rapid rate. Subsequently, she was admitted for further care. It seems from the cardiac standpoint she did get IV Cardizem. Currently she is in sinus rhythm. Patient not able to give much of information. Seems very sleepy. Son states that, there is a prior history of coronary artery bypass surgery. Not clear who she follows with. Has not had any active cardiac issues otherwise. Review of Systems Review of Systems: Yes all other systems are reviewed and are negative Constitutional: Constitutional: Reports as per HPI Eyes: Eyes: Reports as per HPI ENT: Reports as per HPI Cardiovascular: Cardiovascular: Reports as per HPI, Denies acrocyanosis, Denies cool extremities, Denies chest pain, Denies leg edema, Denies lightheadedness, Denies palpitations and Denies dyspnea Respiratory: Respiratory: Reports as per HPI, Reports no additional respiratory complaints and Denies dyspnea Gastrointestinal: Gastrointestinal: Reports as per HPI and Reports no additional gastrointestinal complaints Genitourinary: Genitourinary: Reports as per HPI Musculoskeletal: Musculoskeletal: Reports no additional musculoskeletal complaints and Reports as per HPI Integumentary/Breasts: Skin/Breast: Reports system reviewed and no additional complaints, except as docu Neurologic: Reports system reviewed and no additional complaints, except as documented and Reports as per HPI Psychiatric: Psychiatric: Reports no additional psychiatric complaints and Reports as per HPI Endocrine: Endocrine: Reports no additional endocrine complaints, Reports as per HPI and Denies palpitations Hematologic/Lymphatic: Hematologic/Lymphatic: Reports no additional hematologic/lymphatic complaints and Reports as per HPI Allergic/Immunologic: Allergic/Immunologic: Reports no additional allergic/immunologic complaints and Reports as per HPI [facility] Past Medical History Medical History (Updated 05/16/22 @ 16:54 by Konrad Johnson MD) CAD (coronary artery disease) Change in mole Claudication of left lower extremity CVA (cerebral vascular accident) Dry eye High cholesterol HTN (hypertension) Leg cramps Nocturia Peripheral neuropathy Post-nasal drip Functional capacity: independent ambulation Family History Family History Father No problems noted. Mother No problems noted. Surgical History Surgical History (Updated 05/16/22 @ 16:54 by Konrad Johnson MD) History of CEA (carotid endarterectomy) Hx of CABG Social History Social History Household Members: Family Housing: House Do you presently have visiting nurse or other home services: No Patient Tobacco Use Status: Never used Tobacco Use of substances other than those prescribed or required for medical reasons: No Currently Displaying Signs/Symptoms of Drug Intoxication Withdrawal: No Have you been hit, kicked, punched, or otherwise hurt by someone within the past year? If so, by whom?: No Do you feel safe in your current relationship?: No Current Relationship Is there a partner from a previous relationship who is making you feel unsafe now?: No Are you made to feel afraid or neglected: No Advance Directives: No Do you have thoughts of harming others: None Do you have a plan to hurt others: No Plan Recently lost weight without trying: Unsure How much weight loss: Unsure Nutrition Risks: No Nutritional Risk Patient : No service: No Meds Allergies Allergy/AdvReac Type Severity Reaction Status Date / Time [id number] Reductase AdvReac Unknown LEG PAIN Verified 02/06/22 09:41 Inhibitor [[id number] REDUCTASE INHIBITOR] Active Medications: Current Medications Acetaminophen (Acetaminophen Supp 650 Mg Supp.Rect) 650 mg MT Q6H PRN PRN Reason: Pain, Mild (Pain Scale 1-3) Last Admin: 05/16/22 07:09 Dose: 650 mg Amlodipine Besylate (Amlodipine Besylate 10 Mg Tablet) 10 mg PO DAILY [facility]; Protocol Last Admin: 05/16/22 08:23 Dose: 10 mg Aspirin (Aspirin Enteric Coated 81 Mg Tablet.) 81 mg PO DAILY [facility] Last Admin: 05/16/22 08:23 Dose: 81 mg Atorvastatin Calcium (Atorvastatin Calcium 10 Mg Tablet) 10 mg PO DAILY [facility] Last Admin: 05/16/22 08:23 Dose: 10 mg Clopidogrel Bisulfate (Clopidogrel Bisulfate 75 Mg Tablet) 75 mg PO DAILY [facility] Last Admin: 05/16/22 08:23 Dose: 75 mg Docusate Sodium (Docusate Sodium 100 Mg Capsule) 100 mg PO BID [facility] Last Admin: 05/16/22 08:24 Dose: 100 mg Enoxaparin Sodium (Enoxaparin Sodium 40 Mg/0.4 Ml Syringe) 40 mg SUBCUT Q24H [facility] Last Admin: 05/15/22 18:37 Dose: 40 mg Ceftriaxone Sodium 1 gm/ (Sodium Chloride) 50 mls @ 100 mls/hr IV Q24H [facility] Last Infusion: 05/16/22 16:22 Dose: Infused Levetiracetam (Keppra) 500 mg in 100 mls @ 400 mls/hr IV Q12H [facility] Last Infusion: 05/16/22 06:45 Dose: Infused Isosorbide Mononitrate (Isosorbide Mononitrate 60 Mg Tab.Er.24h) 60 mg PO DAILY [facility]; Protocol Last Admin: 05/16/22 08:23 Dose: 60 mg Losartan Potassium (Losartan Potassium 50 Mg Tablet) 50 mg PO DAILY [facility]; Protocol Last Admin: 05/16/22 08:23 Dose: 50 mg Metoprolol Tartrate (Metoprolol Tartrate 50 Mg Tablet) 50 mg PO BID [facility]; Protocol Last Admin: 05/16/22 08:23 Dose: 50 mg Midazolam HCl (Midazolam Hcl/Pf 2 Mg/2 Ml Vial) 1 mg IVPUSH Q15M PRN PRN Reason: Seizures Omeprazole (Omeprazole 40 Mg Capsule.Dr) 40 mg PO DAILY@0630 [facility] Last Admin: 05/16/22 05:12 Dose: 40 mg Ondansetron HCl (Ondansetron Hcl 4 Mg/2 Ml Vial) 4 mg IVPUSH Q8H PRN PRN Reason: Nausea and Vomiting Pharmacy Consult (Consult Rx Perform Med Rec) 1 each MISCELLANE ONCE PRN PRN Reason: Consult order Prednisone (Prednisone 20 Mg Tablet) 50 mg PO DAILY [facility] Last Admin: 05/16/22 08:21 Dose: 50 mg Senna (Sennosides 8.6 Mg Tablet) 17.2 mg PO BEDTIME PRN PRN Reason: Constipation Sodium Chloride (0.9 % Sodium Chloride Flush 3 Ml Syringe) 3 ml IVFLUSH QSHIFT [facility] Last Admin: 05/16/22 16:08 Dose: Not Given Home Medications Medication Instructions Recorded Confirmed Last Taken Type atorvastatin 10 mg tablet 10 mg PO DAILY 10/09/21 05/15/22 01/24/22 History isosorbide mononitrate 60 mg 60 mg PO DAILY 10/09/21 05/15/22 01/24/22 History tablet,extended release 24 hr losartan 50 mg tablet 50 mg PO DAILY 10/09/21 05/15/22 01/24/22 History metoprolol tartrate 50 mg tablet 50 mg PO BID 10/09/21 05/15/22 01/24/22 History omeprazole 40 mg capsule,delayed 40 mg PO DAILY@0630 10/09/21 05/15/22 01/24/22 History release aspirin 81 mg tablet,delayed 81 mg PO DAILY 12/19/21 05/15/22 01/24/22 History release amlodipine 10 mg tablet 1 tab PO DAILY 05/15/22 05/15/22 Unknown History ondansetron 4 mg disintegrating 4 mg PO Q8H PRN Nausea 05/15/22 05/15/22 Unknown History tablet prednisone 50 mg tablet 50 mg PO DAILY 05/15/22 05/15/22 Unknown History Physical Exam Vital Signs: Vital Signs: Last Vital Signs Temp 97.8 F 05/16/22 16:00 Pulse 80 05/16/22 16:00 Resp 20 05/16/22 16:00 BP 135/88 05/16/22 16:00 Pulse Ox 94 05/16/22 16:00 O2 Del Method 05/16/22 16:00 BMI result Body Mass Index 28.4 Const: General: comfortable, no acute distress, lethargic and tired appearing Orientation/consciousness: No patient oriented x3 and lethargic HEENT: Other: Unremarkable Head: Yes normal to inspection Neck: Neck: Yes normal visual inspection Chest: Chest palpation & inspection: normal inspection of the chest Resp: Auscultation: clear to auscultation bilaterally Cardio: Palpation: normal PMI Heart sounds: S1 normal heart sound present, S2 normal heart sound present, no gallops, no murmurs and no rubs GI: Palpation (GI): Soft to palpation Back/Spine/Pelvis: Other: unremarkable Skin: General skin exam: no rashes or lesions noted Neuro: General: No patient oriented x3 Extrem: General: Yes normal to inspection Psych: Mental Status: mental status grossly abnormal Objective Labs and Meds Result diagrams: 05/16/22 06:47 05/16/22 06:47 Lab results: Laboratory Results - last 24 hr 05/15/22 05/15/22 05/15/22 16:39 18:54 21:51 WBC RBC Hgb Hct MCV MCH MCHC RDW Plt Count MPV Absolute Nucleated RBC Nucleated RBC % (auto) Sodium Potassium Chloride Carbon Dioxide Anion Gap BUN Creatinine Estim Creat Clear Calc Estimated GFR Random Glucose Lactic Acid 3.8 H* Lactic Acid F/U @ 2Hr 3.1 H* Lactic Acid F/U @ 4Hr 2.8 H* Calcium Random Cortisol 05/16/22 05/16/22 05/16/22 06:47 06:47 06:47 WBC 9.4 RBC 4.86 Hgb 14.7 Hct 43.3 MCV 89.1 MCH 30.2 MCHC 33.9 RDW 13.4 Plt Count 149 L D MPV 10.2 Absolute Nucleated RBC 0.000 Nucleated RBC % (auto) 0.0 Sodium 136 Potassium 3.6 Chloride 100 Carbon Dioxide 25 Anion Gap 15 BUN 27 H Creatinine 0.86 Estim Creat Clear Calc 45.7 Estimated GFR > 60 Random Glucose 89 Lactic Acid Lactic Acid F/U @ 2Hr Lactic Acid F/U @ 4Hr Calcium 8.6 D Random Cortisol 15.2 ECG Interpretation: EKG with atrial fibrillation at 01:52/Min; cannot exclude old inferior infarct; lateral ST depression. In the repeat EKG, sinus rhythm. Old inferior infarct. Cannot exclude old anterior infarct. Imaging Radiologist's impression: Impressions Brain MRI 05/16/22 10:49 IMPRESSION: No acute intracranial process. Extensive chronic white matter microangiopathy and generalized parenchymal volume loss with a chronic left striatocapsular infarct. No hippocampal pathology. Assessment and Plan (1) Atrial fibrillation with rapid ventricular response: Status: Acute (2) Hypertensive emergency: Status: Acute (3) Hx of CABG: Status: Acute (4) Delirium due to general medical condition: Status: Acute Plan Initial EKG showed atrial fibrillation rapid rate but now in sinus rhythm. Borderline high sensitivity troponins at 29.2 and 30.1. Echocardiogram is pending. Patient herself seems somewhat lethargic, confused. Could be postictal as well. We can increase the beta-blockers to 75 mg b.i.d. as the blood pressure is also high. In fact was as much as 210/96 mm Hg. No much better. One seizure issues resolved and no other major bleeding concerns, then potentially anticoagulation with Eliquis. Discussed with son at the bedside. Time Spent With Patient Time: Total time managing care of this patient today 70 minutes. Procedures Date of Service Date of Service: 05/16/22
[2022-05-16] MEDS: Enoxaparin Sodium 40 MG/0.4 ML SYRINGE SUBCUT (17:17)
[2022-05-16 19:11] VITALS: BP 121/59; PULSE 62; RESP 18; TEMP 36.4; O2SAT 94
[2022-05-16] MEDS: levETIRAcetam 250 MG TABLET PO (20:40)
[2022-05-16] MEDS: Metoprolol Tartrate 25 MG TABLET 75 MG PO (20:41)
[2022-05-17] VITALS (7 sets, daily range): BP systolic 112–152; BP diastolic 62–67; PULSE 56–67; RESP 18–20; TEMP 36.1–36.8; O2SAT 93–97
[2022-05-17] MEDS: 0.9 % Sodium Chloride Flush 3 ML SYRINGE IVFLUSH ×2 (02:19→09:10)
[2022-05-17] MEDS: Omeprazole 40 MG CAPSULE.DR PO (06:05)
[2022-05-17] MEDS: Clopidogrel Bisulfate 75 MG TABLET PO (09:10)
[2022-05-17] MEDS: Isosorbide Mononitrate 60 MG TAB.ER.24H PO (09:10)
[2022-05-17] MEDS: amLODIPine Besylate 10 MG TABLET PO (09:10)
[2022-05-17] MEDS: Aspirin Enteric Coated 81 MG TABLET.DR PO (09:11)
[2022-05-17] MEDS: Metoprolol Tartrate 25 MG TABLET 75 MG PO ×2 (09:11→20:45)
[2022-05-17] MEDS: Docusate Sodium 100 MG CAPSULE PO ×2 (09:11→20:45)
[2022-05-17] MEDS: predniSONE 20 MG TABLET 50 MG PO (09:11)
[2022-05-17] MEDS: levETIRAcetam 250 MG TABLET PO ×2 (09:11→20:45)
[2022-05-17] MEDS: Losartan Potassium 50 MG TABLET PO (09:11)
--- NOTE | 2022-05-17 09:45 | PC.NURSE ---
at 09:10, came to give morning meds. pt son at the bedside. Discussed meds for this morning and pt son refused Atorvastatin, Accordinf to pt son, pt was done with the med years a go
[2022-05-17] MEDS: Apixaban 5 MG TABLET PO ×2 (12:53→20:45)
--- NOTE | 2022-05-17 13:11 | PC.NURSE ---
@ ~1250 conducted bedside swallow eval. Pt elevated to110 degrees. Pt was A&Ox4 and able to follow instructions. Pt was able to drink small sips of water w/o eliciting coughing or displaying any other sign of difficulty swallowing.
--- NOTE | 2022-05-17 13:28 | PM.PNCARD ---
Subjective Subjective Date of Service: 05/17/22 Interval history: She still seems weak and somewhat lethargic but able to answer some questions. Denies any cardiac complaints at this time. Review of Systems Review of Systems Yes all other systems are reviewed and are negative Constitutional: Reports as per HPI Eyes: Reports as per HPI Reports as per HPI Cardiovascular: Reports as per HPI, Denies acrocyanosis, Denies cool extremities, Denies chest pain, Denies leg edema, Denies lightheadedness, Denies palpitations and Denies dyspnea Respiratory: Reports as per HPI, Reports no additional respiratory complaints and Denies dyspnea Gastrointestinal: Reports as per HPI and Reports no additional gastrointestinal complaints Genitourinary: Reports as per HPI Musculoskeletal: Reports no additional musculoskeletal complaints and Reports as per HPI Skin/Breast: Reports system reviewed and no additional complaints, except as docu Reports system reviewed and no additional complaints, except as documented and Reports as per HPI Psychiatric: Reports no additional psychiatric complaints and Reports as per HPI Endocrine: Reports no additional endocrine complaints, Reports as per HPI and Denies palpitations Hematologic/Lymphatic: Reports no additional hematologic/lymphatic complaints and Reports as per HPI Allergic/Immunologic: Reports no additional allergic/immunologic complaints and Reports as per HPI Physical Exam Vital Signs: Last Vital Signs Temp 97.9 F 05/17/22 11:35 Pulse 67 05/17/22 11:35 Resp 20 05/17/22 11:35 BP 152/62 H 05/17/22 11:35 Pulse Ox 96 05/17/22 11:35 O2 Del Method 05/17/22 11:35 BMI result Body Mass Index 28.4 Const General: comfortable and no acute distress Orientation/consciousness: No patient oriented x3 HEENT Other: Unremarkable Head: Yes normal to inspection Neck Neck: Yes normal visual inspection Chest Chest palpation & inspection: normal inspection of the chest Resp Auscultation: clear to auscultation bilaterally Cardio Palpation: normal PMI Heart sounds: S1 normal heart sound present, S2 normal heart sound present, no gallops, no murmurs and no rubs GI Palpation (GI): Soft to palpation Back/Spine/Pelvis Other: unremarkable Skin General skin exam: no rashes or lesions noted Neuro General: No patient oriented x3 Extrem General: Yes normal to inspection Psych Mental Status: mental status grossly abnormal Objective Labs and Meds Result diagrams: 05/16/22 06:47 05/16/22 06:47 Progress Note: A&P Assessment and plan (1) Atrial fibrillation with rapid ventricular response: Status: Acute (2) Hypertensive emergency: Status: Acute (3) Hx of CABG: Status: Acute (4) Delirium due to general medical condition: Status: Acute Plan Initial EKG showed atrial fibrillation rapid rate but now in sinus rhythm. Telemetry today shows sinus rhythm. Borderline high sensitivity troponins at 29.2 and 30.1. Echocardiogram shows LVEF of 65-70% and wall motion abnormalities likely from underlying coronary disease. With regard to atrial fibrillation, we can keep her on beta-blockers but increase the dose. Otherwise, when stable neurologically start Eliquis. She is also on aspirin/Plavix and need to see why. Unless any specific reason, could stop them. With regard to blood pressure, it was as much as 200/96 mm Hg. It seems much better now at 152/62 mm Hg. Still not ideal but improved. Discussed with son at the bedside. Discussed with Dr. Bernal. Time Spent With Patient Time: Total time managing care of this patient today 35 minutes. Progress Note: Quality Stroke Does the patient have a stroke diagnosis?: No Procedures Date of Service Date of Service: 05/17/22
--- NOTE | 2022-05-17 15:24 | HO.PM.IMPN ---
Subjective Subjective Date of Service: 05/17/22 Interval History: Encephalopathy, seizure Review of Systems Mental status seems to be improved, still seems generalized weak no chest pain or sob Physical Exam Vital Signs: Vital Signs: Last Vital Signs Temp 97.0 F 05/17/22 15:11 Pulse 65 05/17/22 15:11 Resp 18 05/17/22 15:11 BP 128/63 05/17/22 15:11 Pulse Ox 97 05/17/22 15:11 O2 Del Method 05/17/22 15:11 BMI result Body Mass Index 28.4 ? Appearance: Alert.? Oriented X3.? Generalized weak. ? cvs: rrr, [id number] , no murmur res: clear to auscultation ,no rhonchii or wheezing abd: no rebound or guarding ,nt, bs present. ext pulses present , no cyanosis . neuro: axo3 , moves all extremities Objective Data Active Medications Acetaminophen (Acetaminophen Supp 650 Mg Supp.Rect) 650 mg ND Q6H PRN PRN Reason: Pain, Mild (Pain Scale 1-3) Last Admin: 05/16/22 07:09 Dose: 650 mg Documented By: JHONNY Amlodipine Besylate (Amlodipine Besylate 10 Mg Tablet) 10 mg PO DAILY [facility]; Protocol Last Admin: 05/17/22 09:10 Dose: 10 mg Documented By: JORDON Apixaban (Apixaban 5 Mg Tablet) 5 mg PO BID [facility] Last Admin: 05/17/22 12:53 Dose: 5 mg Documented By: JORDON Aspirin (Aspirin Enteric Coated 81 Mg Tablet.) 81 mg PO DAILY [facility] Last Admin: 05/17/22 09:11 Dose: 81 mg Documented By: JORDON Atorvastatin Calcium (Atorvastatin Calcium 10 Mg Tablet) 10 mg PO DAILY [facility] Last Admin: 05/17/22 09:44 Dose: Not Given Documented By: JORDON Non-Admin Reason: pt caregiver refused- see note Clopidogrel Bisulfate (Clopidogrel Bisulfate 75 Mg Tablet) 75 mg PO DAILY [facility] Last Admin: 05/17/22 09:10 Dose: 75 mg Documented By: JORDON Docusate Sodium (Docusate Sodium 100 Mg Capsule) 100 mg PO BID [facility] Last Admin: 05/17/22 09:11 Dose: 100 mg Documented By: JORDON Isosorbide Mononitrate (Isosorbide Mononitrate 60 Mg Tab.Er.24h) 60 mg PO DAILY [facility]; Protocol Last Admin: 05/17/22 09:10 Dose: 60 mg Documented By: JORDON Levetiracetam (Levetiracetam 250 Mg Tablet) 250 mg PO BID [facility] Last Admin: 05/17/22 09:11 Dose: 250 mg Documented By: JORDON Losartan Potassium (Losartan Potassium 50 Mg Tablet) 50 mg PO DAILY [facility]; Protocol Last Admin: 05/17/22 09:11 Dose: 50 mg Documented By: JORDON Metoprolol Tartrate (Metoprolol Tartrate 25 Mg Tablet) 75 mg PO BID [facility]; Protocol Last Admin: 05/17/22 09:11 Dose: 75 mg Documented By: JORDON Midazolam HCl (Midazolam Hcl/Pf 2 Mg/2 Ml Vial) 1 mg IVPUSH Q15M PRN PRN Reason: Seizures Omeprazole (Omeprazole 40 Mg Capsule.Dr) 40 mg PO DAILY@0630 [facility] Last Admin: 05/17/22 06:05 Dose: 40 mg Documented By: JHONNY Ondansetron HCl (Ondansetron Hcl 4 Mg/2 Ml Vial) 4 mg IVPUSH Q8H PRN PRN Reason: Nausea and Vomiting Pharmacy Consult (Consult Rx Perform Med Rec) 1 each MISCELLANE ONCE PRN PRN Reason: Consult order Prednisone (Prednisone 20 Mg Tablet) 50 mg PO DAILY [facility] Last Admin: 05/17/22 09:11 Dose: 50 mg Documented By: JORDON Senna (Sennosides 8.6 Mg Tablet) 17.2 mg PO BEDTIME PRN PRN Reason: Constipation Sodium Chloride (0.9 % Sodium Chloride Flush 3 Ml Syringe) 3 ml IVFLUSH QSHIFT [facility] Last Admin: 05/17/22 09:10 Dose: 3 ml Documented By: JORDON Labs CBC & Chem 7: 05/16/22 06:47 05/16/22 06:47 Microbiology Microbiology Results: Microbiology 05/15/22 13:37 Blood Culture - Preliminary Blood - Venous No growth after 24 hours. 05/15/22 13:37 Blood Culture - Preliminary Blood - Venous No growth after 24 hours. 05/15/22 00:00 Urine Culture - Final Urine clean catch - Urine packer top No growth. Assessment and Plan (1) Seizure: Status: Acute (2) HTN (hypertension): Status: Acute (3) Acute metabolic encephalopathy: Status: Acute (4) Sepsis: Status: Acute (5) Acute UTI: Status: Acute (6) Afib: Status: Acute Plan New Onset Seizure - 86 year old female admitted with new onset seizure also noted to be in new onset AFib RVR with positive urinalysis meeting sepsis criteria - toxic metabolic encephalopathy sec Patient had a generalized tonic-clonic seizure which was witnessed the emergency department.? Seizure broke without intervention.? -patient was given IV Keppra, seen by Neurology MRI seems to fine, EEG fine , Switch Keppra to 250 b.i.d. d/w neuro -less likely evidence of uti. New Onset Atrial Fibrillation Back to sinus rhythm, continue metoprolol and home medications adjusted metoprolol,started eliquis Sepsis/UTI ?- Patient met sepsis criteria prior to going in to Afib RVR due to leukocytosis, tachycardia, patient has asymptomatic pyuria ,no bacteria in urine urine culture and blood culture neg sepsis less likely,seems intial leukocytosis possibly related to seizures as well as tachycardia. ?will dc antibiotics Polymyositis -Recent diagnosis by PCP who started her on prednisone 50 mg daily ongoing for the past 3 weeks. -Random cortisol seems fine . -Patient may need slow wean. History of CVA Bilateral carotid artery stenosis - Statin, d/w cardio and vascular- continue asa ,dc plavix ,continue eliquis. PAD - As above dvt prophylax : d/c lovenox. inpatient need:inpatient need: seizure on keppra ,mental ststaus moniterin, tele monitering( afib). Time Spent With Patient Time: Total time managing care of this patient today ____ minutes. Quality Stroke Does the patient have a stroke diagnosis?: No VTE Prior VTE?: No VTE Risk Level:: Medical - moderate - high VTE Device Contraindication: N/A - Device Ordered VTE Drug Contraindication: N/A - Med Ordered
--- NOTE | 2022-05-17 15:33 | MHC.SL.SWA ---
Speech Pathologist Impression: Risk of Aspiration Due to: Neurological Condition Dysphasia Diet Status: Liquid Consistency and Strategies for Safe Swallow: Liquid Intake Recommendation: Thin Liquid Intake Strategies: Small Sips Solid Food Consistency: Dietary Recommendations: Regular Additional Modifications to Solid Foods: Due to c/o coughing after meals, patient may benefit from sitting upright for 30-60 minutes after a meal as a preventative measure due to self reported GERD. Oral Medication Intake: Whole with Liquid Please contact the pharmacy regarding appropriate crushable or liquid drug formulations that are available whenever modified delivery is recommended. Compensatory Strategies and Precautions to be Taken for Safe Swallow: Sitting Upright (90 deg) Small Bites and Sips Alternate Liquids/Solids Supervision While Eating and Drinking for Safe Swallow: None Needed Foods to Avoid: Swallowing Recommended Treatments: Compens. Strategy Educat. Recommendation for Speech: Inpatient Speech Therapy Comment: Patient presents with oral motor and oral and pharyngeal phases of swallow all WFL. Patient self -reported HX of GERD, had c/o that she sometimes coughs after finishing meal, and was noted to burp after swallows of liquid. Diet orders in banner are REGULAR with THIN liquids, which are recommended to continue, as well as pills whole with liquid or puree, as preferred by patient. Patient is able to independently feed self, does not appear to need assistance or supervision at this time. Would recommend patient remain in seated position (heat of bed at 90 degrees) for 30 to 60 minutes after meal, given reported hx reflux/coughing after meals. FELISA COFFEY notified of recommendations by secure text, RN in person. [facility] will f/u X1 for toleration of recommended diet. Frequency/Duration: Date Range for Service Req: Timeline to reassess: Clinical Medical Transcriptionist Clinican/Clinical Fellow: No Supervisory Statement: I have reviewed and agree with the student/clinical fellow's documentation: N/A Speech Language Pathologist: Rand Turner M.A., [facility]
[2022-05-18] VITALS: BP 141/63; PULSE 57; RESP 18; TEMP 36.4; O2SAT 96
[2022-05-18 04:00] VITALS: BP 152/70; PULSE 54; RESP 18; TEMP 36.4; O2SAT 96
[2022-05-18] MEDS: Omeprazole 40 MG CAPSULE.DR PO (05:35)
[2022-05-18 07:50] VITALS: BP 191/79; PULSE 60; RESP 18; TEMP 36.6; O2SAT 92
[2022-05-18 08:40] VITALS: BP 164/62
[2022-05-18] MEDS: predniSONE 20 MG TABLET 50 MG PO (08:42)
[2022-05-18] MEDS: Isosorbide Mononitrate 60 MG TAB.ER.24H PO (08:43)
[2022-05-18] MEDS: Metoprolol Tartrate 25 MG TABLET 75 MG PO (08:43)
[2022-05-18] MEDS: Apixaban 5 MG TABLET PO (08:43)
[2022-05-18] MEDS: Aspirin Enteric Coated 81 MG TABLET.DR PO (08:43)
[2022-05-18] MEDS: levETIRAcetam 250 MG TABLET PO (08:43)
[2022-05-18] MEDS: Docusate Sodium 100 MG CAPSULE PO (08:43)
[2022-05-18] MEDS: Losartan Potassium 50 MG TABLET PO (08:43)
[2022-05-18] MEDS: Atorvastatin Calcium 10 MG TABLET PO (08:43)
[2022-05-18] MEDS: amLODIPine Besylate 10 MG TABLET PO (08:44)
[2022-05-18] MEDS: 0.9 % Sodium Chloride Flush 3 ML SYRINGE IVFLUSH (08:48)
--- NOTE | 2022-05-18 10:20 | MHC.SL.SWA ---
Speech Pathologist Impression: WFL Risk of Aspiration Due to: Neurological Condition Dysphasia Diet Status: No Change Liquid Consistency and Strategies for Safe Swallow: Liquid Intake Recommendation: Thin Liquid Intake Strategies: Small Sips Solid Food Consistency: Dietary Recommendations: Regular Additional Modifications to Solid Foods: Pt self reported GERD. Recommend pt sit up for 30-60 minutes after eating and drinking as a precaution. Oral Medication Intake: Whole with Liquid Please contact the pharmacy regarding appropriate crushable or liquid drug formulations that are available whenever modified delivery is recommended. Compensatory Strategies and Precautions to be Taken for Safe Swallow: Sitting Upright (90 deg) Small Bites and Sips Alternate Liquids/Solids Rate of Ingestion Change Supervision While Eating and Drinking for Safe Swallow: None Needed Recommendation for Speech: D/C ST [employer] Clinican/Clinical Fellow: Yes: Curt Hill Supervisory Statement: I have reviewed and agree with the student/clinical fellow's documentation: Yes Speech Language Pathologist: Katelyn Marin M.A., CCC-DIGITAL PRE PRESS OPERATOR
[2022-05-18 10:55] VITALS: PULSE 60; O2SAT 92
--- NOTE | 2022-05-18 11:36 | P.DS_ITS ---
DS: Providers Provider Date of Service: 05/18/22 Date of admission: 05/15/22 15:03 Primary care physician: Steve Mcelroy MD Consults: 05/15/22 15:50 Consult to Neurology Routine Consulting Provider: [facility] Reason for consultation: new onset seizure 05/15/22 16:00 Consult to Cardiology Routine Consulting Provider: Konrad Johnson Reason for consultation: New onset Afib w RVR Has provider been notified: No DS: Diagnosis Discharge Diagnosis (1) Seizure: Status: Acute (2) HTN (hypertension): Status: Acute (3) Acute metabolic encephalopathy: Status: Acute (4) Sepsis: Status: Acute (5) Acute UTI: Status: Acute (6) Afib: Status: Acute DS: Summary Hospital Course Hospital Course: ?86-year-old female with a past medical history as noted below who presented to the emergency department accompanied by her son due to confusion ongoing for the past 3 days.? At current time, patient is a limited/poor historian secondary to mentation however she is alert.? Patient's son is at bedside who reports for the past 3 days she has been laughing inappropriately, she has not been able to answer questions as quickly as she normally does and/or hold a conversation with family members. She lives at home with her other son and she is mainly independent and is fairly sharp with her replies.? Son also reports that patient has been on high-dose steroids ongoing for the past few days for a muscular issue . In ED shortly after this providers original assessment, patient had a witnessed tonic clonic seizure that broke on its own and then was also noted to be in Afib RVR. Initial laboratory data revealed leukocytosis of 16.3, Hgb & Hct 17.1/29.8, 29.2 with a repeat of 30.1 with no delta, urinalysis concerning for infection. Lactic acid pending at time of this dictation, blood cultures have been obtained. Chest x-ray as well CT of the brain were performed which were negative for acute findings. In the emergency department the? patient received IV ceftriaxone, 20 mg IVP cardizem. The decision was made to admit patient for medical management. Hospital course:86 year old female admitted with new onset seizure? also noted to be in new onset AFib RVR with positive urinalysis meeting sepsis criteria- toxic metabolic encephalopathy sec Patient had a generalized tonic-clonic seizure which was witnessed the emergency department.? Seizure broke without intervention-patient was given IV Keppra, seen by Neurology MRI seems to fine, EEG fine: Subsequently switched to p.o. Keppra, in addition considering AFib with RVR initially-discussed with vascular and cardio as well as neurology: Plan to start Eliquis, since we are starting patient on Eliquis we will stop Plavix, continue aspirin. Hypertension: Metoprolol adjusted to 75 mg b.i.d. for better blood pressure control as well as it will benefit heart rate control. Patient his less likely to have UTI-since she is asymptomatic, no bacteria in the urine, urine culture negative and blood culture negative. Will avoid antibiotics. In retrospect Patient did not had sepsis either-cultures negative. Leukocytosis and tachycardia secondary to seizure. Patient will be going home with VNA and PT considering multiple medical issues as above. above management discussed with the patient and her family in detail length assessment and plan coordination time spent 50 minute. Time Spent with Patient Time attestation: Total time managing care of this patient today ____ minutes. Discharge coordination time: Greater than 30 minutes Quality: Safe Use of Opioids Does Pt have an Active Cancer Diagnosis on the Problem List?: No Quality: Stroke Does the patient have a stroke diagnosis?: No Physical Exam Vital Signs: Vital Signs: Last Vital Signs Temp 98 F 05/18/22 07:50 Pulse 60 05/18/22 10:55 Resp 18 05/18/22 07:50 BP 191/79 H 05/18/22 07:50 Pulse Ox 92 05/18/22 10:55 O2 Del Method 05/18/22 07:50 BMI result Body Mass Index 28.4 Appearance: Alert.? Oriented X3.? Generalized weak. ? cvs: rrr, [id number] , no murmur res: clear to auscultation ,no rhonchii or wheezing abd: no rebound or guarding ,nt, bs present. ext pulses present , no cyanosis . neuro: axo3 , moves all extremities DS: Data Data Completed and Pending Labs on day of discharge: Preliminary micro results at discharge 05/15/22 13:37 Blood Culture - Preliminary Blood - Venous No growth after 48 hours. 05/15/22 13:37 Blood Culture - Preliminary Blood - Venous No growth after 48 hours. 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 No evidence of acute territorial infarct or hemorrhage. Chest X-Ray 05/15/22 12:22 IMPRESSION: No acute cardiopulmonary process. Brain MRI 05/16/22 10:49 IMPRESSION: No acute intracranial process. Extensive chronic white matter microangiopathy and generalized parenchymal volume loss with a chronic left striatocapsular infarct. No hippocampal pathology. Discharge Plan Discharge Anticipated Discharge Date/Time: 05/18/22 11:22 Patient Disposition: Home Health Service Discharge Diagnosis: AFib, seizure, toxic metabolic encephalopathy, uncontrolled hypertension Referrals: Steve Mcelroy MD [Primary Care Provider] - 1 Week Bushra Islas MD [Physician] - 2 Weeks (follow up outpatient) Discharge Medications: New levetiracetam 250 mg Tablet 250 mg PO BID Qty: 60 0RF Eliquis 5 mg Tablet 5 mg PO BID Qty: 60 0RF Continued amlodipine 10 mg tablet 1 tab PO DAILY prednisone 50 mg tablet 50 mg PO DAILY ondansetron 4 mg tablet,disintegrating 4 mg PO Q8H PRN (Reason: Nausea) omeprazole 40 mg capsule,delayed release(DR/EC) 40 mg PO DAILY@0630 losartan 50 mg tablet 50 mg PO DAILY isosorbide mononitrate 60 mg tablet extended release 24 hr 60 mg PO DAILY atorvastatin 10 mg tablet 10 mg PO DAILY aspirin 81 mg tablet,delayed release (DR/EC) 81 mg PO DAILY Changed metoprolol tartrate 50 mg tablet 75 mg PO BID Qty: 90 0RF Discontinued clopidogrel [Plavix] 75 mg tablet 75 mg PO DAILY Qty: 90 2RF Discharge Orders: Discharge Order (Routine); Ordered 05/18/22 Ordered By: Itz Bernal Diet: Advance to usual diet Activity on Discharge: As tolerated Stand Alone Forms: Patient Portal Discharge page Care Plan Goals: Patient was admitted for toxic metabolic encephalopathy, seizure, uncontrolled blood pressure, AFib with RVR: Patient was treated with IV seizure medications, blood pressure medication as well as heart rate control medications-currently seems to be improved. Blood pressure medication metoprolol adjusted. For her blood pressure medication adjustment can be done outpatient if blood pressure is still uncontrolled. Patient was advised to continue p.o. Keppra for seizure medication, in addition patient was started on Eliquis for stroke prevention and since started on Eliquis her Plavix was discontinued. Avoid driving until cleared by outpatient neurology. Patient initially thought to have urinary tract infection-patient is asymptomati c and there is no bacteria in the urine and urine culture negative we will avoid antibiotics at present. Patient follow-up outpatient with PCP and Neurology Health Concerns: As above. Plan of Treatment: As above. Assessment: As above. Patient Instructions: A-fib (Atrial Fibrillation) (DC), Epilepsy (DC), Ence phalopathy (DC)
--- NOTE | 2022-05-18 11:55 | W.MHC.F2F ---
Service Date Service Date: 05/18/22 Encounter Date of encounter: 05/18/22 Encounter: Seizure, AFib with RVR, toxic metabolic encephalopathy, uncontrolled hypertension Reasons for Services Signs and symptoms assessed: Monitor for mental status, blood pressure, heart rate. Reason for jail: medication management, medication treatment and teach disease management Reason for physical therapy: home safety and mobility, therapeutic exercises, restore joint function, gait/transfer training, assess need for DME, ADL training, energy conservation and other MD Overseeing Care: Steve Mcelroy Homebound: Leaving the home is medically contraindicated at this time without the asist of a device and/or another person due th the listed conditions above and below. Reason homebound: weakness related to hospital stay Homebound supporting statement: Patient has multiple comorbidities including AFib with RVR, seizures, uncontrolled hypertension, generalized weak post hospitalization: Need help to go to appointments and blood draws. Certification: Based on the above findings, I certify that this patient is confined to the home and needs intermittent jail care, physical therapy and/or speech therapy, or continues to need occupational therapy. The patient is under my care, and I have initiated the establishment of the plan of care. The patient will be followed by a physician who will periodically review the plan of care. Time Spent With Patient Time: Total time managing care of this patient today ____ minutes.
--- NOTE | 2022-05-18 11:58 | MHC.CM.PN ---
Addendum entered by Marybel Mijares 05/18/22 13:47: CHANGE OF PLAN, SON IS REQUESTING STR, PT ACCEPTED AT [facility], SON AWARE. BLS TRANSPORT BOOKED VIA [place] 4 PM Original Note: DP: PT MEDICALLY CLEARED FOR DC HOME WITH NEW VNA SERVICES THROUGH [facility]. RN AWARE. FAMILY NOTIFIED AND WILL TRANSPORT.
[2022-05-18 15:59] VITALS: BP 169/74; PULSE 59; RESP 14; TEMP 36.4; O2SAT 94
[2022-05-18 17:02] LABS: COVID-19 Test Negative (Negative); IDNOW Serial# BCCEAD1C
== END 2022-05-18 17:30 | disposition home health service (06) | DRG 872 ==
LOC: HO.ED 14:22 → HO.EDOVER 15:14 → HO.IMC 16:18
PROVIDERS: Physician Assistant Medical; Admitting Provider Registered Nurse; Emergency Provider Emergency Medicine; PCP Internal Medicine; Visit Provider Internal Medicine
DX: A41.9 Sepsis, unspecified organism (principal); N39.0 Urinary tract infection, site not specified; I16.1 Hypertensive emergency; M33.20 Polymyositis, organ involvement unspecified; F05 Delirium due to known physiological condition; I25.10 Atherosclerotic heart disease of native coronary artery without angina pectoris; R56.9 Unspecified convulsions; I65.23 Occlusion and stenosis of bilateral carotid arteries; Z20.822 Contact with and (suspected) exposure to COVID-19; Z86.73 Personal history of transient ischemic attack (TIA), and cerebral infarction without residual deficits; Z95.1 Presence of aortocoronary bypass graft; Z88.8 Allergy status to other drugs, medicaments and biological substances; Z79.82 Long term (current) use of aspirin; Z79.52 Long term (current) use of systemic steroids; Z79.899 Other long term (current) drug therapy
CPT/HCPCS: 36415; 70450; 70551; 71046; 80048; 80053; 81001; 82533; 83605; 83735; 83880; 84484; 85025; 85027; 85610; 85730; 87040; 87086; 87635; 92526; 92610; 93005; 93306; 95816; 97116; 97162; 97530; 99285; J0696; J1650; J1953; J2060; Q9957

== ENCOUNTER 2022-06-12 20:01 | Emergency (ER) | payer MEDICARE, SELFPAY ==
[2022-06-12 20:19] VITALS: BP 136/86; PULSE 72; O2SAT 96
[2022-06-12 20:25] VITALS: BMI 25.2
--- NOTE | 2022-06-12 20:29 | ED_ITS ---
History of Present Illness General Chief Complaint: Epistaxis Stated Complaint: epistaxis Source: patient, family and RN notes reviewed Mode of arrival: EMS Limitations: no limitations History of Present Illness HPI Narrative: Patient with history of AFib on Eliquis been in shelter for last 2 weeks been bleeding for last few days stop the Eliquis 4 days ago still patient has bleeding from the left nostril no black stools or bleeding from any other place, no history of nose bleeding the past Related Data Home Medications Medication Instructions Recorded Confirmed atorvastatin 10 mg tablet 10 mg PO DAILY 10/09/21 05/15/22 isosorbide mononitrate 60 mg 60 mg PO DAILY 10/09/21 05/15/22 tablet,extended release 24 hr losartan 50 mg tablet 50 mg PO DAILY 10/09/21 05/15/22 omeprazole 40 mg capsule,delayed 40 mg PO DAILY@0630 10/09/21 05/15/22 release aspirin 81 mg tablet,delayed 81 mg PO DAILY 12/19/21 05/15/22 release amlodipine 10 mg tablet 1 tab PO DAILY 05/15/22 05/15/22 ondansetron 4 mg disintegrating 4 mg PO Q8H PRN Nausea 05/15/22 05/15/22 tablet prednisone 50 mg tablet 50 mg PO DAILY 05/15/22 05/15/22 Previous Rx's Medication Instructions Recorded apixaban 5 mg tablet (Eliquis) 5 mg PO BID #60 tabs 05/18/22 levetiracetam 250 mg tablet 250 mg PO BID #60 tabs 05/18/22 metoprolol tartrate 50 mg tablet 75 mg PO BID #90 tabs 05/18/22 Allergies Allergy/AdvReac Type Severity Reaction Status Date / Time [id number] Reductase AdvReac Unknown LEG PAIN Verified 02/06/22 09:41 Inhibitor [[id number] REDUCTASE INHIBITOR] Review of Systems Review of Systems: Yes all other systems are reviewed and are negative PMFSH Past Medical History Medical History Bilateral carotid artery stenosis CAD (coronary artery disease) Change in mole Claudication of left lower extremity CVA (cerebral vascular accident) Dry eye High cholesterol HTN (hypertension) Leg cramps Nocturia PAD (peripheral artery disease) Peripheral neuropathy Post-nasal drip Surgical History History of CEA (carotid endarterectomy) Hx of CABG Family History Family History Father No problems noted. Mother No problems noted. Social History Social History Household Members: Family Housing: House Do you presently have visiting nurse or other home services: No Alcohol intake: never Patient Tobacco Use Status: Never used Tobacco Smoked in Last 30 Days: No Use of substances other than those prescribed or required for medical reasons: No Advance Directives: No Advance Directives Information Provided: No service: No Physical Exam Vital Signs: Vital Signs: Last Vital Signs Temp 97.5 F 06/12/22 22:00 Pulse 62 06/12/22 22:00 Resp 18 06/12/22 22:00 BP 137/63 06/12/22 22:00 Pulse Ox 95 06/12/22 22:00 O2 Del Method 06/12/22 22:00 BMI result Body Mass Index 25.2 Appearance: Alert. Oriented X3. No acute distress. Eyes: PERRLA, No Nystagmus ENT: Pharynx normal. Oral Mucosa moist active bleeding from the nostril from ant erior part of septum Neck: Normal inspection. Neck supple. CVS: Normal heart rate and rhythm. Pulses normal. Respiratory: No respiratory distress. Equal air entry bilateral, no wheezing/rales/rhonchi Abdomen: Soft and nontender. Bowel sounds are present, no mass palpable, no CVA tenderness Skin: Skin warm and dry. Normal skin color. Normal skin turgor. Extremities: No lower extremity edema. No calf tenderness Neuro: Oriented X 3. No motor deficit. Medications Administered Discontinued Medications Generic Name Dose Route Start Last Admin Trade Name Freq PRN Reason Stop Dose Admin Silver Nitrate 1 appl 06/12/22 22:19 06/12/22 22:26 Silver Nitrate Applicator Stick..Ea. TOPICAL 06/12/22 22:20 1 appl ONCE ONE Administration Tranexamic Acid 500 mg 06/12/22 20:33 06/12/22 20:35 Tranexamic Acid 1,000 Mg/10 Ml Vial INTRANASAL 06/12/22 20:34 500 mg ONCE ONE Administration Medical Decision Making Medical Decision Making [facility] Narrative: Patient with active bleeding from left nostril stop using TXA and nasal tampon which was removed and bleeding source was cauterized using silver nitrate, no active bleeding at time of discharge patient hand nails were trimmed as likely the reason she had epistaxis from picking the nose Lab Data [facility] Lab Attestation statement: I reviewed the patient's lab results. 06/12/22 21:51 06/12/22 21:51 Labs: Lab Results 06/12/22 06/12/22 06/12/22 Range/Units 21:51 21:51 21:51 WBC 11.8 H (4.8-10.8) X10*3/uL RBC 4.41 (4.20-5.50) X10*6/uL Hgb 13.5 (12.0-16.0) g/dl Hct 38.3 (37.0-47.0) % MCV 86.8 (80.0-98.0) fL MCH 30.6 (27.0-33.0) pg MCHC 35.2 H (31.0-35.0) g/dl RDW 13.3 (11.0-16.0) % Plt Count 163 (160-400) X10*3/uL MPV 10.0 (9.4-12.3) fL Immature Gran % (Auto) 1.0 H (0.0-0.4) % Neut % (Auto) 91.3 H (45-73) % Lymph % (Auto) 4.3 L (20-40) % [place] % (Auto) 3.1 (2-11) % Eos % (Auto) 0.1 (0-4) % Baso % (Auto) 0.2 (0-2) % Lymph # (Auto) 0.5 L (1.2-4.9) X10*3/uL [place] # (Auto) 0.4 (0.1-1.2) X10*3/uL Eos # (Auto) 0.0 (0.0-0.4) X10*3/uL Baso # (Auto) 0.0 (0.0-0.2) X10*3/uL Abs Immat Gran (auto) 0.12 H (0.00-0.03) X10*3/uL Absolute Neuts (auto) 10.8 H (2.0-8.3) x10*3/uL Absolute Nucleated RBC 0.000 (0.0-0.012) X10*3/uL Nucleated RBC % (auto) 0.0 (0.0-0.2) /100WBC Smear Tech's Comments VERIFIED PT 12.7 (10.0-13.1) SEC INR 1.1 (0.9-1.1) Sodium 133 L (135-145) mmol/L Potassium 5.3 H D (3.3-5.1) mmol/L Chloride 100 (96-108) mmol/L Carbon Dioxide 21 L (22-29) mmol/L Anion Gap 17 (12-20) BUN 36 H (9-16) mg/dL Creatinine 1.04 (0.5-1.4) mg/dL Estim Creat Clear Calc 37.1 Estimated GFR 50 Random Glucose 151 H (60-115) mg/dL Calcium 9.5 D (8.4-10.2) mg/dL Total Bilirubin 0.6 (0.0-1.0) mg/dL AST 22 (5-31) U/L ALT 37 H (0-31) U/L Alkaline Phosphatase 45 (39-117) U/L Total Protein 5.7 L (6.5-8.0) g/dL Albumin 3.3 L (3.5-5.0) g/dL Independent Interpretation I performed an independent interpretation of an: EKG Interpretation: Normal sinus rhythm heart rate 63 beats per minute no acute ST T wave changes no acute ischemia Procedures Epistaxis Control Time Out Performed: Yes Nostril: Yes left Direct inspection: Yes anterior source identified Direct inspection method: Yes otoscope Clots removed by: Yes blowing nose Epistaxis treatment: Yes TXA soaked gauze, Yes silver nitrate cautery and Yes nasal tampon Results of treatment: Yes bleeding controlled Discharge Plan Discharge Clinical Impression: Epistaxis Patient Disposition: Xfer [facility] Instructions: Nosebleed (ED) Additional Instructions: Do not pick your nose Keep your hand nails trimmed Restart Eliquis if there is no bleeding for next 2 days Prescriptions: No Action amlodipine 10 mg tablet 1 tab PO DAILY prednisone 50 mg tablet 50 mg PO DAILY ondansetron 4 mg tablet,disintegrating 4 mg PO Q8H PRN (Reason: Nausea) levetiracetam 250 mg Tablet 250 mg PO BID Qty: 60 0RF Eliquis 5 mg Tablet 5 mg PO BID Qty: 60 0RF metoprolol tartrate 50 mg tablet 75 mg PO BID Qty: 90 0RF omeprazole 40 mg capsule,delayed release(DR/EC) 40 mg PO DAILY@0630 losartan 50 mg tablet 50 mg PO DAILY isosorbide mononitrate 60 mg tablet extended release 24 hr 60 mg PO DAILY atorvastatin 10 mg tablet 10 mg PO DAILY aspirin 81 mg tablet,delayed release (DR/EC) 81 mg PO DAILY
--- NOTE | 2022-06-12 20:33 | ECG_ITS ---
Test Reason : GENERAL MEDICAL Blood Pressure : / mmHG Vent. Rate : 063 BPM Atrial Rate : 063 BPM P-R Int : 142 ms QRS Dur : 080 ms QT Int : 424 ms P-R-T Axes : 051 014 111 degrees QTc Int : 433 ms Normal sinus rhythm Possible Inferior infarct (cited on or before 16-NOV-2009) Anterior infarct (cited on or before 16-NOV-2009) Abnormal ECG When compared with ECG of 16-MAY-2022 11:29, T wave inversion more evident in Anterior leads Referred By: Oni Padilla Electronically Signed By:Riki Almanza
[2022-06-12] MEDS: Tranexamic Acid 1,000 MG/10 ML VIAL 500 MG INTRANASAL (20:35)
[2022-06-12 21:58] LABS: Basophils Percent Auto 0.2 % (0-2); Eosinophils Percent Auto 0.1 % (0-4); Hematocrit 38.3 % (37.0-47.0); Hemoglobin 13.5 g/dl (12.0-16.0); Imm Gran Abs Auto 0.12 X10*3/uL (0.00-0.03); Lymphocytes Absolute Auto 0.5 X10*3/uL (1.2-4.9); Lymphocytes Percent Auto 4.3 % (20-40); Mean Corpuscular HGB Conc 35.2 g/dl (31.0-35.0); Mean Corpuscular Hemoglobin 30.6 pg (27.0-33.0); Mean Corpuscular Volume 86.8 fL (80.0-98.0); Monocytes Absolute Auto 0.4 X10*3/uL (0.1-1.2); Monocytes Percent Auto 3.1 % (2-11); Neutrophils Absolute Auto 10.8 x10*3/uL (2.0-8.3); Neutrophils Percent Auto 91.3 % (45-73); Platelet Count 163 X10*3/uL (160-400); Red Blood Count 4.41 X10*6/uL (4.20-5.50); Red Cell Distribution Width 13.3 % (11.0-16.0); SCAN SMEAR FLAG 1; White Blood Count 11.8 X10*3/uL (4.8-10.8)
[2022-06-12 22:00] VITALS: BP 137/63; PULSE 62; RESP 18; TEMP 36.4; O2SAT 95
[2022-06-12 22:00] LABS: MANUAL DIFF FLAG SCAN
[2022-06-12 22:01] LABS: SLIDE REVIEW VERIFIED
--- NOTE | 2022-06-12 22:04 | MHC.EDTECH ---
2200 vitals sign taken pt is resting in bed .
[2022-06-12 22:05] LABS: INTERNATIONAL NORM RATIO 1.1 (0.9-1.1); Prothrombin Time 12.7 SEC (10.0-13.1)
[2022-06-12] MEDS: Silver Nitrate Applicator STICK..EA. 1 APPL TOPICAL (22:26)
[2022-06-12 22:33] LABS: Alanine Aminotransferase 37 U/L (0-31); Albumin Level 3.3 g/dL (3.5-5.0); Alkaline Phosphatase 45 U/L (39-117); Anion Gap 17 (12-20); Aspartate Amino Transferase 22 U/L (5-31); Bilirubin Total 0.6 mg/dL (0.0-1.0); Blood Urea Nitrogen 36 mg/dL (9-16); Calcium 9.5 mg/dL (8.4-10.2); Carbon Dioxide 21 mmol/L (22-29); Chloride 100 mmol/L (96-108); Creatinine Clr Calc Pharmacy 37.1; Estimated Glomerular Filt Rate 50; Glucose Random 151 mg/dL (60-115); Potassium 5.3 mmol/L (3.3-5.1); Sodium 133 mmol/L (135-145); Total Protein 5.7 g/dL (6.5-8.0)
[2022-06-13 00:17] VITALS: BP 136/92; PULSE 59; RESP 16; TEMP 36.6; O2SAT 94
--- NOTE | 2022-06-13 00:46 | PC.NURSE ---
pt resting quietly, no apparent distress, son at bedside
== END 2022-06-13 00:48 | disposition skilled nursing facility (03) ==
PROVIDERS: Emergency Provider Internal Medicine; PCP Internal Medicine
DX: R04.0 Epistaxis (principal); I10 Essential (primary) hypertension; E78.5 Hyperlipidemia, unspecified; I48.91 Unspecified atrial fibrillation; Z95.1 Presence of aortocoronary bypass graft; Z86.73 Personal history of transient ischemic attack (TIA), and cerebral infarction without residual deficits; Z79.02 Long term (current) use of antithrombotics/antiplatelets; Z79.899 Other long term (current) drug therapy; Z79.82 Long term (current) use of aspirin; Z79.01 Long term (current) use of anticoagulants
CPT/HCPCS: 30901; 36415; 80053; 85025; 85610; 93005; 99284